=== PATIENT | female | born 1950 | race Caucasian/White ===

== ENCOUNTER 2017-12-28 11:56 | Day surgery (SDC) | payer MEDICARE, MEDICAID, SELFPAY ==
[2017-12-23 16:55] VITALS: BMI 27.8
[2017-12-28] VITALS (7 sets, daily range): BP systolic 116–150; BP diastolic 54–67; PULSE 62–81; RESP 18–20; TEMP 36.8; O2SAT 96–98
--- NOTE | 2017-12-28 13:10 | P.PN_ITS ---
[facility] Anesthesia Checklist - Patient Identification Patient Identification: Arm Band, Verbal (Name & ) - Structural Data Admitted From: Home Planned Operative Procedure/s: egd Consent for Planned Operative Procedure(s) Verified: Yes Verified Documents: Surgical Consent - NPO Status Verified Time NPO: 00:00 - Chart Verification Results Verified: CBC, BMP - Additional verifications Patient : No Anesthesia Reactions: No Hx Blood Transfusions: No Blood Transfusion Reaction: No Cephalosporin Allergy: No Previous Colonoscopy: No - Cardiovascular Assessment Heart Sounds: S1 & S2 Pulse Strength: Baseline Pulse Rhythm: Regular Peripheral Edema: No - Airway Assessment C-Spine Mobility Assessed: Yes TMJ Mobility Assessed: Yes Dentition: Dentures-good fit - Neurological Assessment Level of Consciousness: Awake, Alert, Appropriate Hx Seizures: No Numbness or tingling in extremities: No - Anesthesia Plan Anesthesia Risk discussed: Yes ASA Class: III Anesthesia Type: MAC [facility] Anesthesia HX I have reviewed the patient's past medical history: Yes Medical History: Reports:: Gastroesophageal Reflux Disease(GERD), Hypertension, Lung Disease (COPD, ASTHMA) Denies:: Diabetes Mellitus Type 1, Diabetes Mellitus Type 2 Other Surgeries: Yes: Colonoscopy, Hysterectomy-Total Amputation: No Fractures: No *Family Hx:: Unable to obtain
--- NOTE | 2017-12-28 13:16 | HMH.PROC ---
[facility] Procedure Note Procedure Note:: Upper Endoscopy Procedure Report: Esophagogastroduodenoscopy with cold biopsies and TTS balloon dilation Endoscopost: Alberto Anaya II, MD Referring Physician: Tony Hay MD Date of Procedure: December 28, 2017 Equipment: Olympus GIF 180 standard upper endoscope Sedation: MAC sedation Indications: Mrs. Chappell is a 67-year-old female who is here for diagnostic upper endoscopy. She was sent by pulmonary because of her dyspnea and associated GERD. She often has choking with globus sensation. She feels like foods get hung up and she does note mucus in the throat, frequent clearance of the throat and some hoarseness. She has some belching and bloating. She has ongoing reflux. She has occasional nausea. She reports epigastric abdominal discomfort, bloating and early satiety. She does have irregular bowel function with both constipation and less often diarrhea. The patient did have a colonoscopy in [address] Morgan at [facility]. Procedure: Prior to the procedure, a history and physical exam was performed, and patient's medications and allergies were reviewed. The risks, benefits and alternatives of the sedation and procedure were discussed with the patient. All questions were answered and informed consent was obtained. The patient was brought to the procedure room. Patient identification and proposed procedure were verified by the physician and the nurse. The patient was placed in a left lateral decubitus position and the scope was passed under direct vision. Throughout the procedure, the patient's blood pressure, pulse, and oxygen saturations were monitored continuously. The upper GI endoscopy was accomplished without difficulty. The patient tolerated the procedure well. Findings: The scope was passed directly into the upper esophagus and advanced to the third portion of the duodenum. The post bulbar duodenum and duodenal bulb were normal with normal mucosa and conniventes. The scope was withdrawn through a normal duodenal bulb and pylorus into the stomach. There was moderate reactive gastritis of the antrum and body with some bile reflux. Upon retroflexion there was a small 1-2 cm hiatal hernia. There was some bile reflux. The scope was then withdrawn into the esophagus. There was a distal she is ringing. There was no evidence of reflux esophagitis. There were tertiary contractions all esophageal dysmotility. The entire esophagus was dilated to 60 [place]/20 mm with a TTS hydrostatic balloon. There was shattering of the Schatzki's ring. There is also some resistance at the cricopharyngeus/upper esophageal sphincter which was dilated fully to 20 mm. The remainder of the esophageal mucosa was normal. Impression: 1. 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 Schatzki's ring dilated to 20 mm 3. Nonerosive GERD with mild esophageal dysmotility and very small sliding hiatal hernia (1-2 cm) 4. Moderate reactive gastritis with bile reflux Plan: I would recommend dietary measures, fiber bowel regimen and promotility therapy. I will follow up the biopsies. I would consider colonoscopy for further evaluation. The patient's choking and airway issues are likely secondary to functional GERD.
== END 2017-12-28 14:40 | disposition home or self-care (01) ==
LOC: OUTP 11:59
PROVIDERS: Family Provider Family Medicine; PCP Family Medicine; Referring Provider Internal Medicine; Visit Provider Internal Medicine Gastroenterology
PROC: 0DJ08ZZ Inspection of Upper Intestinal Tract, Via Natural or Artificial Opening Endoscopic (ICD-10-PCS; CPT 43235; principal; 2017-12-28 13:00)
DX: R13.10 Dysphagia, unspecified (principal); K22.2 Esophageal obstruction; K44.9 Diaphragmatic hernia without obstruction or gangrene; K21.9 Gastro-esophageal reflux disease without esophagitis; K22.4 Dyskinesia of esophagus
CPT/HCPCS: 43249; 88305; 88342; C1726

== ENCOUNTER → 2018-01-12 11:53 | Outpatient (POV) | payer MEDICARE, MEDICAID, SELFPAY ==
[2018-01-15 06:26] LABS: Alpha-1-Antitrypsin 132 mg/dL (90-200)
[2018-01-19 06:27] LABS: Phenotype (PI) MS (.)
== END ==
PROVIDERS: Nurse Practitioner Family; Family Provider Family Medicine; PCP Family Medicine; Visit Provider Internal Medicine
DX: J43.9 Emphysema, unspecified (principal)
CPT/HCPCS: 36415; 82104

== ENCOUNTER → 2018-02-22 10:06 | Outpatient (CLI) | payer MEDICARE, MEDICAID, SELFPAY ==
--- NOTE | 2018-02-22 10:19 | MM_ITS ---
MM Dig screening mamm BI w/CAD CAD Screening COMPARISON: Digital mammograms 08/22/2016 and 06/14/2015 INDICATION: There is a history of breast cancer in patient's mother diagnosed at age 65. TECHNIQUE: Standard CC and MLO images were obtained. R2 CAD reviewed. FINDINGS: Scattered fibroglandular densities are seen in both breasts as noted previously. There are several scattered benign-appearing calcination is in each breast. The nipples are inverted but they have been previously. There is no suspicious lesion and no suspicious microcalcifications. IMPRESSION: Stable exam no suspicious lesion seen BI-RADS Category: 2 Benign Finding(s) RECOMMENDED FOLLOW-UP: 1YR - 1 YEAR FOLLOW-UP (A letter has been sent to the patient regarding results of the study.)
[2018-02-22 10:41] LABS: Basophils % 0.4 % (0.1-2.0); Eosinophils # 0.1 K/mm3 (0.0-0.4); Hematocrit 44.9 % (37.0-47.0); Hemoglobin 14.1 g/dL (12.2-16.2); Lymphocytes # 1.5 K/mm3 (0.7-4.5); Lymphocytes % 24.8 K/mm3 (10-50); Mean Corpuscular HGB Conc 31.4 g/dL (31.8-35.4); Mean Corpuscular Hemoglobin 29.8 pg (27.0-31.2); Mean Corpuscular Volume 94.8 fl (81-99); Mean Platelet Volume 7.3 fl (7.4-10.4); Monocytes # 0.4 K/mm3 (0.1-1.0); Monocytes % 7.1 % (1.7-9.3); Neutrophils % 65.6 % (37.0-80.0); Platelet Count 290 K/mm3 (142-424); Red Blood Count 4.73 M/mm3 (4.20-5.40); White Blood Count 6.1 K/mm3 (4.8-10.8)
[2018-02-22 10:58] LABS: Alanine Aminotransferase 33 U/L (12-78); Albumin/Globulin Ratio 1.1 (1.1-1.8); Alkaline Phosphatase 61 U/L (46-116); Anion Gap 11.2 mEq/L (5-15); Aspartate Amino Transferase 25 U/L (15-37); Bilirubin,Total 0.3 mg/dL (0.2-1.0); Blood Urea Nitrogen 13 mg/dL (7-18); Calcium 9.4 mg/dL (8.5-10.1); Carbon Dioxide 30 mmol/L (21.0-32.0); Chloride 105 mmol/L (98-107); Chol/HDL Ratio 2.5 (1-3.5); Cholesterol 219 mg/dL (140-200); Creatinine,Serum 0.77 mg/dL (0.55-1.02); Estimated Glomerular Filt Rate 75 ml/min (>60); GFR (African American) 90 ML/MIN (>60); Globulin 3.6 gm/dl (1.3-3.2); Glucose 87 mg/dL (74-106); HDL Cholesterol 88 mg/dL (29-89); LDL Cholesterol 115 mg/dL (0-130); Potassium 4.2 mmoL/L (3.5-5.1); Sodium 142 mmol/L (136-145); Thyroid Stimulating Hormone 2.54 uIU/ml (0.358-3.740); Total Protein,Serum 7.6 gm/dL (6.4-8.2); Triglycerides 81 mg/dL (30-200); VLDL Cholesterol 16 mg/dL (0-40)
== END ==
PROVIDERS: Family Provider Family Medicine; PCP Family Medicine; Visit Provider Family Medicine
DX: Z12.31 Encounter for screening mammogram for malignant neoplasm of breast (principal); I10 Essential (primary) hypertension; E78.5 Hyperlipidemia, unspecified; N95.1 Menopausal and female climacteric states; J44.9 Chronic obstructive pulmonary disease, unspecified; M19.90 Unspecified osteoarthritis, unspecified site
CPT/HCPCS: 36415; 77067; 80053; 80061; 84443; 85025

== ENCOUNTER → 2018-05-04 13:29 | Outpatient (POV) | payer MEDICARE, MEDICAID, SELFPAY | PROVIDERS: Family Provider Family Medicine; PCP Family Medicine; Visit Provider Internal Medicine | DX: Z00.00 Encounter for general adult medical examination without abnormal findings (principal) ==

== ENCOUNTER → 2018-06-25 10:50 | Outpatient (CLI) | payer MEDICARE, MEDICAID, SELFPAY ==
--- NOTE | 2018-06-25 10:55 | CT_ITS ---
CT lung screening EXAM: CT LUNG LOW DOSE WO CONTRAST HISTORY: 68 year old female former smoker with greater than 35 pack-year smoking history ITS.REASON: FORMER SMOKER, COPD WITH EMPHYSEMA ORDERING PHYSICIAN: Nicola Hay MD PATIENT AGE: 68 years COMPARISON: 07/06/2017 TECHNIQUE: The exam was performed on a GE Light Speed [address] scanner using 2.90 mGy CTDI. A low dose helical CT CHEST was performed on a multi-detector scanner. All CT scans at the facility use one or more dose reduction, viz: automated exposure control, ma/kV adjustment per patient size (including targeted exams where dose is matched to indication, i.e. head), or iterative reconstruction technique. The LDCT was performed in a facility that meets the criteria for the screening program. Data regarding this exam was submitted to ACR which is an approved registry. The order for this exam indicates that it came as a result of a lung cancer screening counseling shard decision-making visit that included all the elements required of such a visit including smoking cessation. The radiologist interpreting this exam meets the CMS criteria for the LDCT lung cancer screening program. The exam is reported using the Lung-RADS classification scale and reported to the ACR registry. NOTE: This study was performed for the specific purposes of lung cancer screening and is not an alternative to diagnostic chest CT. RADIATION DOSE: CTDI vol(CT dose Index-volume) = 2.90mG DLP (Dose Length Product) = 104.09 mGcm FINDINGS: Centrilobular emphysema. Old granulomatous disease. Bronchial thickening with hyperinflation consistent with obstructive chronic bronchitis. There is a stable 5 mm nodule in the left apex. This nodule is noncalcified a 3 mm nodules present in the right upper lobe posteriorly not readily apparent on the previous exam. No central filling lesions. No new suspicious nodules. No mediastinal or hilar adenopathy. IMPRESSION: 1. Lung RADS Category: 2, benign 2. Other findings: Centrilobular emphysema/COPD, old granulomatous disease RECOMMENDATIONS: 12 month LDCT follow-up
== END ==
PROVIDERS: Family Provider Family Medicine; PCP Family Medicine; Visit Provider Internal Medicine
DX: Z12.2 Encounter for screening for malignant neoplasm of respiratory organs (principal); Z87.891 Personal history of nicotine dependence

== ENCOUNTER → 2018-09-28 12:42 | Outpatient (POV) | payer MEDICARE, MEDICAID, SELFPAY | PROVIDERS: Visit Provider Internal Medicine | DX: Z00.00 Encounter for general adult medical examination without abnormal findings (principal) ==

== ENCOUNTER → 2018-10-07 15:28 | Outpatient (CLI) | payer MEDICARE, MEDICAID, SELFPAY | PROVIDERS: PCP Family Medicine; Visit Provider Nurse Practitioner Family | DX: J44.0 Chronic obstructive pulmonary disease with (acute) lower respiratory infection (principal) | CPT/HCPCS: 93005 ==

== ENCOUNTER → 2018-10-15 07:24 | Outpatient (CLI) | payer MEDICARE, MEDICAID, SELFPAY ==
--- NOTE | 2018-10-15 07:30 | NM_ITS ---
CARDIOLITE SPECT MYOCARDIAL PERFUSION SCAN, REST AND STRESS: EXERCISE STRESS [facility] REVIEW QGS EF AND WALL MOTION EVALUATION: QPS - PERFUSION EVALUATION HISTORY: Chest pain, SOB, HTN DOSE: 10.81 mCi technetium 99m mibi intravenously at rest followed by 32.9 mCi technetium 99m mibi following the intravenous ministration of 0.4 mg of Lexiscan. Resting blood pressure is 198/71. Stress blood pressure 175/72. FINDINGS: Ejection fraction is calculated to be 86%. Uniform myocardial activity both stress and rest gated images calculated ejection fraction of 86 % with hyperdynamic wall motion IMPRESSION: No scintigraphic evidence of Lexiscan-induced myocardial ischemia with hyperdynamic ejection fraction hyperdynamic wall motion
== END ==
PROVIDERS: PCP Family Medicine; Visit Provider Family Medicine
DX: R07.9 Chest pain, unspecified (principal)
CPT/HCPCS: 78452; 93017; A9502; J2785

== ENCOUNTER → 2018-10-27 09:47 | Outpatient (CLI) | payer MEDICARE, MEDICAID, SELFPAY ==
[2018-10-27 11:15] VITALS: PULSE 68; PULSE 72
[2018-10-27 12:30] VITALS: BP 140/85; BP 160/92; PULSE 63; PULSE 74; RESP 20; RESP 28; O2SAT 95; O2SAT 98
== END ==
PROVIDERS: PCP Family Medicine; Visit Provider Internal Medicine
DX: J44.9 Chronic obstructive pulmonary disease, unspecified (principal)
CPT/HCPCS: 94060; 94618; 94640; 94727; 94729

== ENCOUNTER → 2019-03-14 10:25 | Outpatient (CLI) | payer MEDICARE, MEDICAID, SELFPAY ==
--- NOTE | 2019-03-14 10:32 | MM_ITS ---
MM Dig screening mamm BI w/CAD ORDERING PHYSICIAN : Louie Land MD PATIENT AGE: 68 years GENDER: Female COMPARISON: INDICATION: ITS.Routine: SCREENING. No hormones. No new complaints. Family history. Mother with breast cancer age 65 TECHNIQUE: Standard CC and MLO images were obtained. R2 CAD reviewed. FINDINGS: Mild to moderate residual fibrolinear elements. Mild/moderate density. RIGHT BREAST no new areas of concern :Right breast appears satisfactory and stable. Scattered benign calcifications but no significant new areas of concern. LEFT BREAST :Slight additional density at the lateral left breast.- Area labeled X. Small fairly well marginated round density here on cc view-this appearance may reflect a small cyst or less likely developing nodule. Recommend ultrasound & spot views to further evaluate. (CC, & MLO spot view along with full 90 degree view left breast) There are some scattered small benign calcifications in this area. Unlikely related.. Scattered small spherical calcification of tiny oil cysts noted. & Other scattered small vague densities appears stable IMPRESSION: 1..... Left breast. Small round 6 mm density has developed at the lateral left breast... Question possible cyst Recommend additional views left breast as described body of report; and ultrasound left breast 2.... Right breast. Stable unremarkable follow-up in one year BI-RADS Category: 0 Need Additional Imaging Evaluation RECOMMENDED FOLLOW-UP: IMM - IMMEDIATE FOLLOW-UP RECOMMENDED Additional diagnostic problem solving views & ultrasound left breast. (A letter has been sent to the patient regarding results of the study.)
--- NOTE | 2019-03-14 10:32 | XR_ITS ---
DEXA SCAN.-BONE DENSITY STUDY HIPS AND LUMBAR SPINE HISTORY: Postmenopausal female 68-year-old. female no calcium intake. Ovaries removed. No relevant medications listed TECHNIQUE: DEXA scan hip and lumbar spine The most complete data summary and color graphic presentation of the today's ( and any prior ) DEXA findings are available in PACS. Definition and treatment guidelines included. COMPARISON: September 2015 DEXA LUMBAR SPINE: Overall mean lumbar L1-L4 T score -1.1 with BMD1.048 g/cm sq . = Overall Osteopenia lumbar spine L1 vertebral body demonstrates the lowest T score -2.3 with BMD0.856 g/cm sq 2015 prior DEXA the mean T score -0.8 with BMD was1.089g/cm sq Thus when comparing today's study to the prior exam there's been a 3.8% % decreased mean bone density at the lumbar spine. Which is slightly more than anticipated bone loss over this length of time.. HIPS: Femoral neck density is best predictor of hip fracture risk . Right femoral neck demonstrates the lowest T score -1.4 with BMD0.843 g/cm sq . Left femoral neck T score -1.3 with BMD 0.86 Averaging all region included yields today's Hip Mean T score -1.3 with BMD0.843 g/cm sq . 2015 prior DEXA overall mean hip T score -0.5 with mean BMD0.939 g/cm sq Thus this reflects 10.2 % % decrease in overall mean bone density at the hips in the interval. IMPRESSION 1. LUMBAR SPINE:. Overall lumbar T score -1.1, reflects overall osteopenia at the lumbar spine. Lowest bone density at L1 vertebra with T score -2.3 reflecting more pronounced osteopenia 3.8% decreased bone density since 2015 lumbar spine . 2. HIPS: Overall hip T score = - 1.3 reflecting overall osteopenia hips There is been a 10.2% decreased overall bone density at hips since 2015 Osteopenia at femoral necks: Right femoral neck T score -1.4. & Left femoral neck T score -1.3 WHO criteria for post-menopausal, Women: Normal: T-score at or above -1 SD Osteopenia: T-score between -1 and -2.5 SD Osteoporosis: T-score at or below -2.5 SD
== END ==
PROVIDERS: PCP Family Medicine; Visit Provider Family Medicine
DX: Z78.0 Asymptomatic menopausal state (principal); Z12.31 Encounter for screening mammogram for malignant neoplasm of breast
CPT/HCPCS: 77067; 77080

== ENCOUNTER → 2019-03-15 14:57 | Outpatient (POV) | payer MEDICARE, MEDICAID, SELFPAY ==
[2019-03-15 16:44] LABS: Basophils % 0.2 % (0.1-2.0); Eosinophils # 0.2 K/mm3 (0.0-0.4); Hematocrit 40.1 % (37.0-47.0); Hemoglobin 13.3 g/dL (12.2-16.2); Lymphocytes # 1.9 K/mm3 (0.7-4.5); Lymphocytes % 24.9 % (10-50); Mean Corpuscular HGB Conc 33.2 g/dL (31.8-35.4); Mean Corpuscular Hemoglobin 29.6 pg (27.0-31.2); Mean Corpuscular Volume 89.4 fl (81-99); Mean Platelet Volume 6.4 fl (7.4-10.4); Monocytes # 0.4 K/mm3 (0.1-1.0); Monocytes % 5.3 % (1.7-9.3); Neutrophils # 5.1 K/mm3 (1.8-7.8); Neutrophils % 66.7 % (37.0-80.0); Platelet Count 285 K/mm3 (142-424); Red Blood Count 4.48 M/mm3 (4.20-5.40); Red Cell Distribution Width 14.5 % (11.5-17.5); White Blood Count 7.7 K/mm3 (4.8-10.8)
[2019-03-23 17:37] LABS: Immunoglobulin E, Total 87 IU/mL (6-495)
[2019-03-24 07:23] LABS: M003-IgE Aspergillus fumigatus <0.10 kU/L (Class 0)
== END ==
PROVIDERS: Visit Provider Internal Medicine
DX: J44.1 Chronic obstructive pulmonary disease with (acute) exacerbation (principal); J30.9 Allergic rhinitis, unspecified
CPT/HCPCS: 36415; 82785; 85025; 86003

== ENCOUNTER → 2019-04-11 13:41 | Outpatient (CLI) | payer MEDICARE, MEDICAID, SELFPAY ==
--- NOTE | 2019-04-11 13:50 | MM_ITS ---
MM Dig mamm DX unilat LT CAD, US breast LT complete INDICATION: Follow-up abnormal mammogram ORDERING PHYSICIAN: Uzma Sood APRN PATIENT AGE: 68 years COMPARISON: None TECHNIQUE: Problem-solving views performed of the left breast along with left breast ultrasound FINDINGS: There is is irregular 16 x 8 mm nodular density in the lateral aspect of the left breast at the 3:00 region. This area does not completely compress out. Along the anterior aspect of this abnormality there is a 6 mm rounded opacity. There are coarse calcifications in this region as well. Left breast ultrasound: There is a 6 mm cyst at 12:00. At 4:00 there is a complex hypoechoic nodule measuring 14 x 5 mm with a rounded component anteriorly corresponding to the mammographic abnormality. This has a somewhat suspicious appearance and biopsy is recommended. IMPRESSION: Suspicious appearing complex nodule at the 3:00 region of the left breast. Ultrasound-guided mammotome biopsy suggested BI-RADS Category: 4 Suspicious Abnormality-Biopsy Considered RECOMMENDED FOLLOW-UP: BIO - BIOPSY RECOMMENDED (A letter has been sent to the patient regarding results of the study.)
== END ==
PROVIDERS: PCP Family Medicine; Visit Provider Nurse Practitioner Family
DX: R92.8 Other abnormal and inconclusive findings on diagnostic imaging of breast (principal); Z12.31 Encounter for screening mammogram for malignant neoplasm of breast
CPT/HCPCS: 76641; 77065

== ENCOUNTER → 2019-05-11 09:27 | Outpatient (CLI) | payer MEDICARE, MEDICAID, SELFPAY ==
--- NOTE | 2019-05-11 09:36 | US_ITS ---
US mammotome bx LT, MM clip placement LT INDICATION: Abnormal mammogram and abnormal ultrasound. ORDERING PHYSICIAN: Uzma Sood APRN PATIENT AGE: 68 years COMPARISON: 04/11/2019, 03/14/2019 TECHNIQUE: Following obtaining informed consent and timeout procedure, under aseptic conditions and local anesthesia with 1% buffered lidocaine and deeper anesthesia with lidocaine mixed with epinephrine, an 9 gauge mammotomy needle was inserted into the area of interest where there was a complex cystic lesion in the 3:00 region of the left breast. Multiple mammotomy biopsy is were obtained and a nonferromagnetic clip was then placed. The patient tolerated the procedure well without evidence of immediate complication. Postbiopsy mammogram: Biopsy clip and postbiopsy changes are present in the 3:00 region of the left breast . Pathology: Invasive moderately differentiated ductal carcinoma IMPRESSION: Successful ultrasound-guided mammotome biopsy with clip placement showing invasive moderately differentiated ductal carcinoma. No immediate complications Recommendations: Surgical consult (A letter has been sent to the patient regarding results of the study.)
== END ==
PROVIDERS: PCP Family Medicine; Visit Provider Nurse Practitioner Family
DX: R92.8 Other abnormal and inconclusive findings on diagnostic imaging of breast (principal); N63.22 Unspecified lump in the left breast, upper inner quadrant
CPT/HCPCS: 19083; 76642; 76942; 77065; 88305; 88360; C2618

== ENCOUNTER 2019-08-07 12:30 | Inpatient (IN) ==
--- NOTE | 2019-08-07 12:51 | Emergency Department Note ---
ED Disposition Clinical Impression: Sepsis Qualifiers: Sepsis type: sepsis due to unspecified organism Sepsis acute organ dysfunction status: unspecified Qualified Code(s): A41.9 - Sepsis, unspecified organism Pneumonia Qualifiers: Pneumonia type: due to unspecified organism Laterality: left Lung location: unspecified part of lung Qualified Code(s): J18.9 - Pneumonia, unspecified organism Disposition: Admitted As Inpatient Condition on Discharge: Good Referrals: Louie Land MD [Primary Care Provider] - - Critical Care Critical Care Time: No Attestation: On , the high probability of a clinically significant, sudden or life threatening deterioration of the following system(s) required my full and direct attention, intervention and personal management. The time I documented below is in addition to time spent performing reported procedures but includes the following listed in this critical care notation. Medical Decision Making - Medical Records Medical records reviewed: Yes: I reviewed the patient's medical records. - Cy Inquiry Pt receiving controlled substance: Yes Cy was queried for this patient: No Reason not queried -: Cy login issues Risks and benefits of using a controlled substance: were discussed with pt by me Vital Signs: 08/07/19 12:31 08/07/19 12:40 08/07/19 13:00 Temperature 98.7 F Temperature Source Oral Pulse Rate 96 H Pulse Rate [Left Radial] 95 H 115 H Respiratory Rate 18 24 Blood Pressure [Right Arm] 124/72 126/73 Blood Pressure Mean [Right Arm] 89 90 Blood Pressure Source [Right Arm] Automatic Cuff Blood Pressure Position [Right Arm] Supine Sitting 02 Sat by Pulse Oximetry 98 98 Oxygen Delivery Method Room Air 08/07/19 13:31 08/07/19 14:37 08/07/19 15:05 Temperature 102.2 F H Temperature Source Oral Pulse Rate Pulse Rate [Left Radial] 95 H 104 H Respiratory Rate 18 Blood Pressure [Right Arm] 126/73 140/60 Blood Pressure Mean [Right Arm] 90 86 Blood Pressure Source [Right Arm] Automatic Cuff Blood Pressure Position [Right Arm] Supine 02 Sat by Pulse Oximetry 98 96 Oxygen Delivery Method Room Air 08/07/19 16:16 Temperature 102.5 F H Temperature Source Oral Pulse Rate Pulse Rate [Left Radial] 102 H Respiratory Rate Blood Pressure [Right Arm] 117/82 Blood Pressure Mean [Right Arm] 93 Blood Pressure Source [Right Arm] Blood Pressure Position [Right Arm] 02 Sat by Pulse Oximetry 97 Oxygen Delivery Method - Lab Data Lab results reviewed: Yes: I reviewed the patient's lab results. Lab Results 08/07/19 13:05: Urine Color Yellow, Urine Appearance Clear, Urine pH 6.0, Ur Specific [place] <= 1.005, Urine Protein Negative, Urine Glucose (UA) Negative, Urine Ketones Negative, Urine Blood Negative, Urine Nitrate Negative, Urine Bilirubin Negative, Urine Urobilinogen 0.2, Ur Leukocyte Esterase Trace, Urine WBC 3-5, Ur Squamous Epith Cells 3-5, Urine Bacteria Trace 08/07/19 13:25: Influenza Type A Ag Negative, Influenza Type B Ag Negative 08/07/19 13:45: WBC 3.1 L, RBC 4.13 L, Hgb 12.1 L, Hct 38.1, MCV 92.3, MCH 29.2, MCHC 31.7 L, RDW 14.5, Plt Count 262, MPV 7.1 L, Neut % (Auto) 72.2, Lymph % (Auto) 21.5, [place] % (Auto) 4.6, Eos % (Auto) 1.4, Baso % (Auto) 0.4, Neut # (A uto) 2.3, Lymph # (Auto) 0.7, [place] # (Auto) 0.1, Eos # (Auto) 0.0, Baso # (Auto) 0.0 08/07/19 13:45: Sodium 136, Potassium 4.0, Chloride 100, Carbon Dioxide 26, Anion Gap 14.0, BUN 8, Creatinine 0.99, Estimated Creat Clear 46, Estimated GFR 55 L, Est GFR ( Amer) 67, Glucose 159 H, Calcium 8.5, Total Bilirubin 0.6, AST 35, ALT 90 H, Alkaline Phosphatase 56, Troponin I < 0.02, Total Protein 6.3 L, Albumin 2.6 L, Globulin 3.7 H, Albumin/Globulin Ratio 0.7 L, Lipase 51 L 08/07/19 13:45: Lactate 5.4 H 08/07/19 13:45: D-Dimer 1550 H* Result diagrams: 08/07/19 13:45 08/07/19 13:45 Orders (Tests/Meds): ED MEDICATIONS Generic Name Dose Route Start Last Admin Trade Name Freq PRN Reason Stop Dose Admin Piperacillin Sod/Tazobactam 50 mls @ 100 mls/hr 08/07/19 15:15 08/07/19 15:14 Sod 3.375 gm/ Sodium Chloride IV 08/21/19 15:14 100 mls/hr Q6H VICKI Administration Protocol Discontinued Medications Generic Name Dose Route Start Last Admin Trade Name Freq PRN Reason Stop Dose Admin Albuterol/Ipratropium 3 ml 08/07/19 12:48 08/07/19 12:59 Duoneb 3ml Neb IH 08/07/19 12:49 3 ml ONCE ONE Administration Sodium Chloride 1,000 mls @ 999 mls/hr 08/07/19 13:00 08/07/19 14:36 Sod Chlor 0.9% 1000ml Bag IV 08/07/19 14:00 999 mls/hr .Q1H1M VICKI Administration Ioversol 70 ml 08/07/19 15:55 08/07/19 15:56 Rad-Optiray 350 100ml Vial IV 08/07/19 15:56 70 ml ONCE ONE Administration Protocol Morphine Sulfate 2 mg 08/07/19 14:26 08/07/19 14:36 Morphine 2mg/Ml Syringe IV 08/07/19 14:27 2 mg ONCE ONE Administration Sodium Chloride 50 ml 08/07/19 15:55 08/07/19 15:56 Rad-Ns 50ml Vial IV 08/07/19 15:56 50 ml ONCE ONE Administration Sodium Chloride 10 ml 08/07/19 15:55 08/07/19 15:56 Rad-Saline Flush 10ml Syringe IV 08/07/19 15:56 10 ml ONCE ONE Administration ORDERS Category Date Time Status CTA Chest [CT angio chest] Stat Cat Scan 08/07/19 14:43 Taken XR chest portable Stat Exams 08/07/19 12:45 Taken Blood Culture Stat Micro 08/07/19 14:45 Received Blood Culture Stat Micro 08/07/19 15:00 Stop Req - CT Data CT Scan: Chest Time Received: 16:43 (left pneumonia) ED CT Reviewed: Yes: I have viewed the radiologist's interpretation - ECG Data Tracing #1 I reviewed this ECG and interpreted as documented below: Normal Sinus Rhythm: Yes (no stemi) Arrhythmias present: sinus tach - Tissue Perfus/Sepsis Re-Eval Reperfusion Exam Performed: Yes Date Performed: 08/07/19 Medical Decision Narrative: admit d/w Dr Land for sepsis and pneumonia tissue perfusion reassessment, +cap refill less than 2 sec, alert and oriented General Adult HPI - General Chief complaint: PAIN Stated complaint: back pain, CA patient Time Seen by Provider: 08/07/19 12:49 Mode of Arrival: Ambulatory Source of Information: Patient Limitations: No Limitations Description of Symptoms (Recalled from ER Triage Doc. by RN): to ed per pvt car with c/o lt side back pain starting +cough, +chills, +sob. pt with hx of breast ca last chemo . jv lung sounds with lt side crackles noted - History of Present Illness HPI narrative: mild to mod off and on pleuritic left back pain, no injury, hx chemo for breast cancer, no fever, +short of breath for a few days - Related Data Home Medications Medication Instructions Recorded Confirmed ALPRAZolam [Alprazolam Odt] 0.5 mg PO BID PRN 12/23/17 08/07/19 Albuterol Sulfate [Albuterol HFA 1 puff INHALATION DAILY 12/23/17 08/07/19 Inhaler] Budesonide/Formoterol Fumarate 1 puff INHALATION DAILY 12/23/17 08/07/19 [Symbicort 160-4.5 Mcg Inhaler] Esomeprazole Magnesium [Nexium] 40 mg PO DAILY 12/23/17 08/07/19 Gabapentin [Gabapentin 300mg Cap] 300 mg PO DAILY 12/23/17 08/07/19 Metoclopramide HCl [Metoclopramide 10 mg PO DAILY 12/23/17 08/07/19 10mg Tablet] Montelukast Sodium [Montelukast 10 mg PO HS 12/23/17 08/07/19 10mg Tab] Sertraline HCl [Zoloft] 100 mg PO DAILY 12/23/17 08/07/19 Tramadol HCl [Ultram Take Home 50 mg PO DAILY 12/23/17 08/07/19 Pack 50mg (10)] Verapamil HCl 120 mg PO DAILY 12/23/17 08/07/19 raNITIdine HCl [Ranitidine HCl] 150 mg PO DAILY 12/23/17 08/07/19 Umeclidinium [place] [Incruse 62.5 mcg IH DAILY 12/28/17 08/07/19 Ellipta] Metoprolol Succinate [Toprol XL 50 mg PO BID 08/07/19 08/07/19 50mg Tablet] Nystatin [Nystatin Susp 500,000 5 ml PO Q6HP 08/07/19 08/07/19 Units/5mL Udc] Allergies Allergy/AdvReac Type Severity Reaction Status Date / Time benzonatate Allergy Mild SWELLING Verified 12/28/17 12:15 pneumococcal vaccine Allergy Mild ITCHING,TISSUE Verified 12/28/17 12:15 NECROSIS PORK Allergy Unknown NA-NAUSEA/V Uncoded 11/10/17 15:21 OMITING [facility] History - Hepatitis A Screen Drug use history?: No High risk sexual behaviors?: No History of sexually transmitted infection?: No Currently employed?: No Childcare worker?: No Do you have indoor plumbing?: Yes Do you have electricity?: Yes Attestation statement:: This patient has been screened for Hepatitis A risk factors. Medical History: Reports:: Gastroesophageal Reflux Disease(GERD), Hypertension, Lung Disease (o2 at night) Denies:: Diabetes Mellitus Type 1, Diabetes Mellitus Type 2, Internal Pacemaker, Seizures Other Medical History: Denies: Blood Transfusion Reaction Other Surgeries: Yes: Colonoscopy, Hysterectomy-Total. No: Pacemaker Amputation: No Fractures: No - Social History Alcohol Intake: never Occupational Status: other Family Hx:: Unable to obtain ROS Obtained: Yes Systems reviewed as appropriate & no additional complaints - Constitutional Constitutional: Denies fever(s) - Eyes Eyes: Denies change in vision - ENT Ears, Nose, Mouth, and Throat: Denies dizziness - Cardiovascular Cardiovascular: Denies chest pain - Respiratory Respiratory: Yes dyspnea - Gastrointestinal Gastrointestingal: Denies: vomiting - Musculoskeletal Musculoskeletal: Reports back pain, Denies neck pain - Integumentary/Breasts Skin/Breast: Denies rash - Neurologic Neurologic: Denies dizziness Physical Exam - General General appearance: alert - Head Head exam: normocephalic - Eye Eye exam: Present: normal appearance - ENT ENT exam: Present: mucous membranes moist - Neck Neck exam: Present: normal inspection - Respiratory Respiratory exam: Present: normal lung sounds bilaterally. Absent: respiratory distress - Cardiovascular Cardiovascular exam: Present: normal rhythm, tachycardia - Abdominal Exam Abdominal exam: Present: soft. Absent: tenderness - Extremities Exam Extremities exam: Absent: tenderness - Back Exam Back exam: Absent: vertebral tenderness - Neurological Exam Neurological exam: Present: alert, oriented X3 - Psychiatric Psychiatric exam: Present: normal affect, normal mood - Skin Skin exam: Present: warm, dry
[2019-08-07 13:37] LABS: Microscopic, Urine URINE MICROSCOPIC (MICROSCOPIC)
[2019-08-07 13:38] LABS: Appearance,Urine CLEAR (Clear); Bilirubin,Urine Negative (Negative); Blood, Urine Negative (Negative); Color,Urine YELLOW (Yellow); Glucose,Urine (UA) Negative (Negative); Ketones,Urine Negative (Negative); Leukocyte Esterase,Urine TRACE (Negative); Protein,Urine Negative (Negative); Specific Gravity, Urine <= 1.005 (1.005-1.030); Urobilinogen,Urine 0.2 EU/dl (0.2)
[2019-08-07 13:41] LABS: Bacteria,Urine Trace /lpf
[2019-08-07 14:11] LABS: Alanine Aminotransferase 90 U/L (12-78); Albumin Level 2.6 gm/dL (3.4-5.0); Albumin/Globulin Ratio 0.7 (1.1-1.8); Alkaline Phosphatase 56 U/L (46-116); Aspartate Amino Transferase 35 U/L (15-37); Bilirubin,Total 0.6 mg/dL (0.2-1.0); Blood Urea Nitrogen 8 mg/dL (7-18); Calcium 8.5 mg/dL (8.5-10.1); Carbon Dioxide 26 mmol/L (21.0-32.0); Chloride 100 mmol/L (98-107); Globulin 3.7 gm/dl (1.3-3.2); Glucose 159 mg/dL (74-106); Sodium 136 mmol/L (136-145); Total Protein,Serum 6.3 gm/dL (6.4-8.2)
[2019-08-07 14:18] LABS: Basophils % 0.4 % (0.1-2.0); Eosinophils % 1.4 % (0.1-12.0); Hematocrit 38.1 % (37.0-47.0); Hemoglobin 12.1 g/dL (12.2-16.2); Lymphocytes # 0.7 K/mm3 (0.7-4.5); Lymphocytes % 21.5 % (10-50); Mean Corpuscular HGB Conc 31.7 g/dL (31.8-35.4); Mean Corpuscular Volume 92.3 fl (81-99); Mean Platelet Volume 7.1 fl (7.4-10.4); Monocytes # 0.1 K/mm3 (0.1-1.0); Monocytes % 4.6 % (1.7-9.3); Neutrophils # 2.3 K/mm3 (1.8-7.8); Neutrophils % 72.2 % (37.0-80.0); Platelet Count 262 K/mm3 (142-424); Red Blood Count 4.13 M/mm3 (4.20-5.40); Red Cell Distribution Width 14.5 % (11.5-17.5); White Blood Count 3.1 K/mm3 (4.8-10.8)
--- NOTE | 2019-08-07 21:01 | Electrocardiograph Report ---
APPROVED REPORT Exam: Resting ECG HR:93 bpm ECG Measurements Heart Rate 93 AXES FL 124 P 75 QRSd 82 QRS 67 QT 334 T44 QTc 415 <Conclusion> Normal sinus rhythm Nonspecific ST and T wave abnormality Abnormal ECG Electronically signed by : Yobani Coelho, 08/07/2019 21:00:24
[2019-08-08 05:50] LABS: Basophils % 0.3 % (0.1-2.0); Eosinophils # 0.1 K/mm3 (0.0-0.4); Eosinophils % 3.4 % (0.1-12.0); Hematocrit 32.2 % (37.0-47.0); Hemoglobin 10.4 g/dL (12.2-16.2); Lymphocytes # 0.4 K/mm3 (0.7-4.5); Lymphocytes % 14.1 % (10-50); Mean Corpuscular HGB Conc 32.1 g/dL (31.8-35.4); Monocytes # 0.2 K/mm3 (0.1-1.0); Monocytes % 5.6 % (1.7-9.3); Neutrophils # 2.3 K/mm3 (1.8-7.8); Neutrophils % 76.6 % (37.0-80.0); Platelet Count 281 K/mm3 (142-424); Red Blood Count 3.54 M/mm3 (4.20-5.40); Red Cell Distribution Width 14.8 % (11.5-17.5)
[2019-08-08 06:05] LABS: Anion Gap 11.9 mEq/L (5-15); Blood Urea Nitrogen 4 mg/dL (7-18); Carbon Dioxide 24 mmol/L (21.0-32.0); Chloride 105 mmol/L (98-107); Sodium 138 mmol/L (136-145)
[2019-08-08 06:09] LABS: Glucose 107 mg/dL (74-106)
[2019-08-08 06:10] LABS: Calcium 7.5 mg/dL (8.5-10.1)
--- NOTE | 2019-08-08 07:22 | Pharmacy Consult Notes ---
[facility] Pharmacy VTE Monitoring - Patient Demographics Admission date: 08/07/19 Report Date: 08/08/19 Time: 07:22 Allergies/Adverse Reactions: Patient Allergies benzonatate Allergy (Mild, Verified 12/28/17 12:15) SWELLING pneumococcal vaccine Allergy (Mild, Verified 12/28/17 12:15) ITCHING,TISSUE NECROSIS PORK Allergy (Unknown, Uncoded 11/10/17 15:21) NA-NAUSEA/VOMITING Height: 1.52 m Weight: 58.088 kg Patient Problems: Current Active Problems Sepsis (Acute) Pneumonia (Acute) - VTE Risk Labs: VTE Related Lab Results Hgb 10.4 g/dL (12.2-16.2) L D 08/08/19 05:33 Hct 32.2 % (37.0-47.0) L 08/08/19 05:33 Plt Count 281 K/mm3 (142-424) 08/08/19 05:33 BUN 4 mg/dL (7-18) L D 08/08/19 05:33 Creatinine 0.62 mg/dL (0.55-1.02) D 08/08/19 05:33 Estimated Creat Clear 48 mL/min (50-200) 08/08/19 05:33 Was VTE Risk Assessment Performed: Yes VTE Score: 10 VTE Risk Level: Moderate Risk - Prophylaxis VTE Prophylaxis Ordered?: Yes Types of VTE Prophylaxis: TEDS Knee High Location of Applied Device: Bilateral Lower Extremeties - VTE Diagnosis Confirmed Treatment or plan recommended: Continue Current Treatment
--- NOTE | 2019-08-08 08:39 | History & Physical Report ---
*Admission Date: 08/07/19 <Uzma Sood 08/08/19 08:55> *Chief complaint: Left lower chest pain <Uzma Sood 08/08/19 08:55> *History of present illness: Ms. Chappell is a 69-year-old female with a history of arthritis, COPD, asthma, fibromyalgia, panic attacks and anxiety, hypertension, and recent diagnosis of left breast cancer with lumpectomy and chemotherapy who presented to [facility] emergency room after experiencing 3 days of left lower, posterior chest discomfort. She states the pain progressively worsened until she could not stand it any longer and thus presented to the emergency room. She describes being unable to sleep in her bed and was having to sit in the recliner in order to rest. She also describes chilling and an infrequent mostly nonproductive cough. She had her third chemotherapy on 08/03/2019. She has also been experiencing nausea, vomiting, and diarrhea. She does have a history of COPD and wears oxygen at night. In the emergency room patient received an IV fluid bolus, morphine for the pain, DuoNeb treatment and was started on IV antibiotics. CTA of the chest was negative for pulmonary embolism. She was admitted for further evaluation and treatment. At the time of this exam patient has been to the bathroom and is somewhat short of breath. She states the pain in her back is little bit better. She had minimal sleep during the night. <SoodNayanaUzma 08/09/19 08:42> [facility] History Medical History: Reports:: Anxiety, Asthma, Cancer, Chronic Obstructive Pulmonary Disease (COPD), Gastroesophageal Reflux Disease(GERD), Hiatal Hernia, Home Oxygen, Hypertension, Lung Disease (o2 at night) Denies:: Diabetes Mellitus Type 1, Diabetes Mellitus Type 2, Internal Pacemaker, MRSA, Seizures <BarrieUzma - 08/08/19 08:55> *Have you ever received a pneumonia vaccine?: Yes <Uzma Sood 08/08/19 08:55> *Have you received a flu vaccine this season?: No <Uzma Sood 08/08/19 08:55> Other Medical History: Reports: Anemia, Arthritis, Chemotherapy, Fibromyalgia. Denies: Blood Transfusion Reaction <Uzma Sood 08/08/19 08:55> Comment:: Allergies <Uzma Sood 19 08:55> Laterality Cases: Left: Breast Biopsy, Lumpectomy, Bilateral: Cataract <BarrieUzma 08/08/19 08:55> Other Surgeries: Yes: Colonoscopy, , Hysterectomy-Total, Other (Bladder surgery). No: Pacemaker <Uzma Sood 08/08/19 08:55> Amputation: No <Uzma Sood 08/08/19 08:55> Fractures: No <Uzma Sood 08/08/19 08:55> Comment: Cervical disc surgery 1986 <BarrieUzma 08/08/19 08:55> - *Social History Educational Level: Attended High School <Uzma Sood 08/08/19 08:55> Smoking Status: Former smoker <Uzma Sood 08/08/19 08:55> Tobacco Type: cigarettes <BarrieUzma 08/08/19 08:55> # Packs/Day (cigarettes): 1 <Uzma Sood 08/08/19 08:55> #Yrs smoked (if former smoker): 36 <BarrieUzma 08/08/19 08:55> Smoking End Date: 2004 <BarrieUzma 08/08/19 08:55> Alcohol Intake: never <BarrieUzma 08/08/19 08:55> *Occupational Status:: retired, other <BarrieUzma 08/08/19 08:55> Housing: house <BarrieUzma 08/08/19 09:29> Household Members: spouse <Uzma Sood 08/08/19 09:29> *Travel in the last 8 weeks: None <Uzma Sood 08/08/19 08:55> Family Hx:: Cancer, Coronary Artery Disease, Hypertension, Stroke <Uzma Buitrago nd 08/08/19 08:55> Review of Systems - Constitutional Reports chills, Reports fever(s), Reports weakness <Uzma Sood 08/08/19 08:55> - ENT Reports dizziness, Reports mouth lesions, Reports mouth pain, Reports nasal discharge, Denies ear pain, Denies headache(s), Denies nasal congestion, Denies sore throat <Uzma Sood - 08/08/19 08:55> - *Cardiovascular Reports chest pain (With breathing), Reports shortness of breath, Reports lightheadedness, Denies leg swelling <[facility] 08/08/19 08:55> - *Respiratory Reports cough (And frequent), Reports pain with cough, Denies coughing up blood <[facility] 08/08/19 08:55> - *Gastrointestinal Reports change in bowel habits, Reports loose stools, Reports heartburn, Reports nausea, Reports vomiting, Denies abdominal pain, Denies coffee ground vomit, Denies bright, red blood in stools, Denies black, tarry stools <[facility] 08/08/19 08:55> - *Genitourinary Denies difficulty urinating <[facility] 08/08/19 08:55> - *Musculoskeletal Reports joint pain, Reports back pain, Denies abnormal walking <[facility] 08/08/19 08:55> - *Neurologic Reports dizziness, Denies seizure-like activity, Denies unsteadiness, Denies frequent falls, Denies headache(s) <[facility] 08/08/19 08:55> Meds Home Medications Medication Instructions Recorded Confirmed Type ALPRAZolam [Alprazolam Odt] 0.5 mg PO BIDP PRN 12/23/17 08/08/19 History Albuterol Sulfate [Albuterol HFA 2 puff INHALATION QIDP PRN 12/23/17 08/08/19 History Inhaler] Budesonide/Formoterol Fumarate 2 puff INHALATION BID 12/23/17 08/07/19 History [Symbicort 160-4.5 Mcg Inhaler] Esomeprazole Magnesium [Nexium] 40 mg PO DAILY 12/23/17 08/07/19 History Gabapentin [Gabapentin 300mg Cap] 600 mg PO BID 12/23/17 08/08/19 History Metoclopramide HCl [Metoclopramide 10 mg PO QID 12/23/17 08/08/19 History 10mg Tablet] Montelukast Sodium [Montelukast 10 mg PO HS 12/23/17 08/07/19 History 10mg Tab] Sertraline HCl [Zoloft] 100 mg PO DAILY 12/23/17 08/07/19 History Verapamil HCl 120 mg PO BID 12/23/17 08/07/19 History raNITIdine HCl [Ranitidine HCl] 150 mg PO DAILY 12/23/17 08/07/19 History Umeclidinium Gays [Incruse 1 puff IH DAILY 12/28/17 08/08/19 History Ellipta] Cetirizine HCl [Allergy Relief] 10 mg PO HS 08/07/19 08/07/19 History Lidocaine HCl [Lidocaine viscous 5 - 10 ml PO Q6 PRN 08/07/19 08/07/19 History 100mL bottle] Mag Hydrox/Aluminum Hyd/Simeth 5 - 10 ml PO Q6 PRN 08/07/19 08/07/19 History [Gnp Antacid Anti-Gas Liquid] Metoprolol Succinate [Toprol XL 50 mg PO BID 08/07/19 08/07/19 History 50mg Tablet] Nystatin [Nystatin Susp 500,000 5 ml PO QID 08/07/19 08/08/19 History Units/5mL Udc] PACLitaxel [Taxol 100mg/16.7mL 1 unit IV WEEKLY 08/07/19 08/07/19 History vial] Trastuzumab [Herceptin] 150 mg IV WEEKLY 08/07/19 08/07/19 History diphenhydrAMINE HCl [M-Dryl] 5 - 10 ml PO Q6 PRN 08/07/19 08/07/19 History Magic Mouthwash [Magic 5 - 10 ml PO QID 08/08/19 08/08/19 History Mouthwash;240mL [place]] Tramadol HCl [Tramadol 50mg 50 mg PO BIDP PRN 08/08/19 08/08/19 History Tab] <Louie Land - 08/09/19 08:52> Allergies Allergy/AdvReac Type Severity Reaction Status Date / Time benzonatate Allergy Mild SWELLING Verified 12/28/17 12:15 pneumococcal vaccine Allergy Mild ITCHING,TISSUE Verified 12/28/17 12:15 NECROSIS PORK Allergy Unknown NA-NAUSEA/V Uncoded 11/10/17 15:21 OMITING <Louie Land - 08/09/19 08:52> Exam Vital signs and Labs for Last 24 Hours: Temp Pulse Resp BP Pulse Ox 98.5 F 90 16 143/84 H 98 08/09/19 04:00 08/09/19 05:46 08/09/19 04:00 08/09/19 04:00 08/09/19 05:46 Laboratory Results - last 24 hr 08/08/19 08:04: Stl Aeromonas (PCR) Not detected, Stl C. cayetanensis PCR Not detected, Stool Rotavirus (PCR) Not detected, Stl Adenov F 40/41 PCR Not detected, Stool Astrovirus (PCR) Not detected, Stool Campylobacter PCR Not detected, Stl C.difficile Tox PCR Not detected, Stool Cryptosporidium PCR Not detected, Stl E.coli Shiga Tox PCR Not detected, Stool E coli O157 PCR Not detec rowdy, Stl Enterotoxigenic E PCR Not detected, Stool EPEC (PCR) Not detected, Stool EAEC (PCR) Not detected, Stl E. histolytica PCR Not detected, Stool Giardia Lamblia PCR Not detected, Stool Salmonella PCR Not detected, Stool Sapovirus (PCR) Not detected, Stl P. shigelloides PCR Not detected, Stl Shigella/EIEC PCR Not detected, St Y.enterocolitica PCR Not detected, Stool Vibrio (PCR) Not detected, Stl Vibrio cholerae PCR Not detected, Stl Norovirus GI/GII PCR Not detected 08/08/19 08:30: Troponin I < 0.02 08/08/19 08:30: Potassium 3.3 L 08/08/19 11:20: Troponin I < 0.02 08/08/19 14:20: Troponin I < 0.02 08/08/19 17:17: Troponin I < 0.02 08/08/19 20:35: Troponin I < 0.02 08/08/19 23:10: Troponin I < 0.02 08/09/19 06:05: WBC 4.0 L D, RBC 3.36 L, Hgb 9.7 L, Hct 30.8 L, MCV 91.5, MCH 28.7, MCHC 31.4 L, RDW 15.0, Plt Count 318, MPV 6.8 L, Neut % (Auto) 73.5, Lymph % (Auto) 16.2, Angelina % (Auto) 9.2, Eos % (Auto) 1.0, Baso % (Auto) 0.1, Neut # (Auto) 2.9, Lymph # (Auto) 0.7, Angelina # (Auto) 0.4, Eos # (Auto) 0.0, Baso # (Auto) 0.0 08/09/19 06:05: Sodium 140, Potassium 3.3 L, Chloride 106, Carbon Dioxide 23, Anion Gap 14.3, BUN 3 L, Creatinine 0.62, Estimated Creat Clear 49, Estimated GFR 95, Est GFR ( Amer) 115, Glucose 94, Calcium 7.8 L <Louie Land - 08/09/19 08:52> Temp Pulse Resp BP Pulse Ox 98.4 F 98 H 18 142/73 H 95 08/08/19 08:00 08/08/19 08:00 08/08/19 08:00 08/08/19 08:00 08/08/19 08:00 Laboratory Results - last 24 hr 08/07/19 13:05: Urine Color Yellow, Urine Appearance Clear, Urine pH 6.0, Ur Specific [place] <= 1.005, Urine Protein Negative, Urine Glucose (UA) Negative, Urine Ketones Negative, Urine Blood Negative, Urine Nitrate Negative, Urine Bilirubin Negative, Urine Urobilinogen 0.2, Ur Leukocyte Esterase Trace, Urine WBC 3-5, Ur Squamous Epith Cells 3-5, Urine Bacteria Trace 08/07/19 13:25: Influenza Type A Ag Negative, Influenza Type B Ag Negative 08/07/19 13:45: WBC 3.1 L, RBC 4.13 L, Hgb 12.1 L, Hct 38.1, MCV 92.3, MCH 29.2, MCHC 31.7 L, RDW 14.5, Plt Count 262, MPV 7.1 L, Neut % (Auto) 72.2, Lymph % (Auto) 21.5, Angelina % (Auto) 4.6, Eos % (Auto) 1.4, Baso % (Auto) 0.4, Neut # (Auto) 2.3, Lymph # (Auto) 0.7, Angelina # (Auto) 0.1, Eos # (Auto) 0.0, Baso # (Auto) 0.0 08/07/19 13:45: Sodium 136, Potassium 4.0, Chloride 100, Carbon Dioxide 26, Anion Gap 14.0, BUN 8, Creatinine 0.99, Estimated Creat Clear 46, Estimated GFR 55 L, Est GFR ( Amer) 67, Glucose 159 H, Calcium 8.5, Total Bilirubin 0.6, AST 35, ALT 90 H, Alkaline Phosphatase 56, Troponin I < 0.02, Total Protein 6.3 L, Albumin 2.6 L, Globulin 3.7 H, Albumin/Globulin Ratio 0.7 L, Lipase 51 L 08/07/19 13:45: Lactate 5.4 H 08/07/19 13:45: D-Dimer 1550 H* 08/07/19 18:05: Lactate 1.7 08/08/19 05:33: WBC 3.0 L, RBC 3.54 L, Hgb 10.4 L D, Hct 32.2 L, MCV 91.0, MCH 29.2, MCHC 32.1, RDW 14.8, Plt Count 281, MPV 7.0 L, Neut % (Auto) 76.6, Lymph % (Auto) 14.1, Angelina % (Auto) 5.6, Eos % (Auto) 3.4, Baso % (Auto) 0.3, Neut # (Auto) 2.3, Lymph # (Auto) 0.4 L, Angelina # (Auto) 0.2, Eos # (Auto) 0.1, Baso # (Auto) 0.0 08/08/19 05:33: Sodium 138, Potassium 2.9 L* D, Chloride 105, Carbon Dioxide 24, Anion Gap 11.9, BUN 4 L D, Creatinine 0.62 D, Estimated Creat Clear 48, Estimated GFR 95, Est GFR ( Amer) 115 D, Glucose 107 H D, Calcium 7.5 L D, Troponin I < 0.02 <Uzma Sood - 08/08/19 08:55> I & O for Last 24 hours: Intake & Output 08/06/19 08/07/19 08/08/19 08/09/19 11:59 11:59 11:59 11:59 Intake Total 220 / 220 1510 / 1510 Output Total 1300 / 1300 Balance -1080 / -1080 1510 / 1510 Weight 128 lb 1 oz 130 lb <Louie Land - 08/09/19 08:52> Intake & Output 08/05/19 08/06/19 08/07/1908/08/19 11:59 11:59 11:59 11:59 Intake Total 220 / 220 Output Total 1300 / 1300 Balance -1080 / -1080 Weight 128 lb 1 oz <Uzma Sood - 08/08/19 08:55> Microbiology Reports for the Last 24 Hours: Microbiology 08/08/19 07:25 Sputum - Expectorated Sputum Gram Stain - Final <Louie Land - 08/09/19 08:52> Radiology Reports for the Last 24 Hours: 08/07/2019 chest x-ray IMPRESSION: Left basilar pneumonia,.. With small left pleural effusion 08/07/2019 CTA of the chest IMPRESSION: 1.. No evidence of pulmonary embolism. Pulmonary arteries unremarkable 2.Aortic. No dissection. No prominent findings 3. Moderate size pneumonic infiltrate & consolidation posterior LLL 4. Small left pleural effusion associated 5. Progression of lymph nodes/soft tissue density subcarinal region right > left as detailed within body of report. The largest collection of nodes measuring up to 3.5 cm length x2.2 x 1.1 cm right subcarinal region. Suggest follow-up CT chest in 3-4 months 6.. New irregular 6 mm nodule medial aspect right lower may be related to scarring or inflammatory process, but also warrants follow-up CT chest 3-4 months.. Stable 5 mm nodule superior left upper lobe lobe, again noted and can be followed 7. Underlying emphysematous changes.. Hyperinflation 8. Small hiatal hernia with borderline -mild wall thickening throughout this region <Uzma Sood - 08/08/19 08:55> - Constitutional no acute distress <Uzma Sood - 08/08/19 08:55> Comments: Has just returned back to bed after going to the bathroom. Is somewhat dyspneic. <Uzma Sood Emil 08/08/19 08:55> - *Routine HEENT Exam Head: Present: normocephalic, atraumatic <SoodUzma - 08/08/19 08:55> Eye: Present: PERRL. Absent: conjunctival icterus, scleral injection <SoodUzma Emil 08/08/19 08:55> ENT: Present: mucous membranes dry <BarrieUzma - 08/08/19 08:55> - *Routine Neck Exam Absent: carotid bruit, lymphadenopathy, thyromegaly <Uzma Sood 08/08/19 08:55> - Routine Chest/Breast/Axilla Exam Comments: Right upper chest with Port-A-Cath <Uzma Sood 08/08/19 09:16> - *Routine Respiratory Exam Comments: Left basilar crackles <Uzma Sood 08/08/19 08:55> - *Routine Cardiovascular Exam Present: RRR <Uzma Sood 08/08/19 08:55> - *Routine Abdominal Exam Present: soft, normoactive bowel sounds, tenderness (Epigastrium). Absent: guarding <Uzma Sood 08/08/19 08:55> - *Routine Extremities Exam Absent: edema, calf tenderness <Uzma Sood 08/08/19 08:55> - *Routine Neurological Exam Present: alert, oriented X3 <Uzma Sood 08/08/19 08:55> Assessment and Plan (1) Pneumonia Current visit: Yes Status: Acute Qualifiers: Pneumonia type: due to unspecified organism Laterality: left Lung location: unspecified part of lung Qualified Code(s): J18.9 - Pneumonia, unspecified organism Category: Medical Code(s): J18.9 - Pneumonia, unspecified organism (2) Sepsis Current visit: Yes Status: Acute Qualifiers: Sepsis type: sepsis due to unspecified organism Sepsis acute organ dysfunction status: unspecified Qualified Code(s): A41.9 - Sepsis, unspecified organism Category: Medical Code(s): A41.9 - Sepsis, unspecified organism (3) Hypokalemia Current visit: Yes Status: Acute Category: Medical Code(s): E87.6 - H ypokalemia (4) COPD (chronic obstructive pulmonary disease) Current visit: Yes Status: Chronic Category: Medical Code(s): J44.9 - Chronic obstructive pulmonary disease, unspecified (5) Anxiety Current visit: Yes Status: Chronic Category: Medical Code(s): F41.9 - Anxiety disorder, unspecified (6) Anemia Current visit: Yes Status: Acute Category: Medical Code(s): D64.9 - Anemia, unspecified (7) Breast cancer Current visit: Yes Status: Chronic Category: Medical Code(s): C50.919 - Malignant neoplasm of unspecified site of unspecified female breast (8) Chemotherapy adverse reaction Current visit: Yes Status: Acute Category: Medical Code(s): T45.1X5A - Adverse effect of antineoplastic and immunosuppressive drugs, initial encounter (9) GERD (gastroesophageal reflux disease) Current visit: Yes Status: Chronic Category: Medical Code(s): K21.9 - Gastro-esophageal reflux disease without esophagitis <ShandaLouie Andrea - 08/09/19 08:52> (1) Pneumonia Current visit: Yes Status: Acute Qualifiers: Pneumonia type: due to unspecified organism Laterality: left Lung location: unspecified part of lung Qualified Code(s): J18.9 - Pneumonia, unspecified organism Category: Medical Code(s): J18.9 - Pneumonia, unspecified organism (2) Sepsis Current visit: Yes Status: Acute Qualifiers: Sepsis type: sepsis due to unspecified organism Sepsis acute organ dysfunction status: unspecified Qualified Code(s): A41.9 - Sepsis, unspecified organism Category: Medical Code(s): A41.9 - Sepsis, unspecified organism (3) Hypokalemia Current visit: Yes Status: Acute Category: Medical Code(s): E87.6 - Hypokalemia (4) COPD (chronic obstructive pulmonary disease) Current visit: Yes Status: Chronic Category: Medical Code(s): J44.9 - Chronic obstructive pulmonary disease, unspecified (5) Anxiety Current visit: Yes Status: Chronic Category: Medical Code(s): F41.9 - Anxiety disorder, unspecified (6) Anemia Current visit: Yes Status: Acute Category: Medical Code(s): D64.9 - Anemia, unspecified (7) Breast cancer Current visit: Yes Status: Chronic Category: Medical Code(s): C50.919 - Malignant neoplasm of unspecified site of unspecified female breast (8) Chemotherapy adverse reaction Current visit: Yes Status: Acute Category: Medical Code(s): T45.1X5A - Adverse effect of antineoplastic and immunosuppressive drugs, initial encounter (9) GERD (gastroesophageal reflux disease) Current visit: Yes Status: Chronic Category: Medical Code(s): K21.9 - Gastro-esophageal reflux disease without esophagitis <Uzma Sood - 08/09/19 08:41> - Assessment and plan all Dx Assessment and Plan for all problems:: Patient seen and examined. Concur with assessment and plan. <Louie Land - 08/09/19 08:52> Levaquin has been added for antibiotic coverage. Continue with IV fluids. Home meds have been ordered. Will also continue with duo nebs. Patient is also hypokalemic and will add potassium to IV fluids as well as give IV bolus. <Uzma Sood - 08/08/19 09:16>
--- NOTE | 2019-08-08 11:53 | Electrocardiograph Report ---
APPROVED REPORT Exam: Resting ECG HR:94 bpm ECG Measurements Heart Rate 94 AXES [place] 116 P 83 QRSd 78 QRS 59 QT 344 T3 QTc 430 <Conclusion> Normal sinus rhythm Nonspecific ST and T wave abnormality Abnormal ECG Electronically signed by : Yobani Coelho, 08/08/2019 11:52:50
[2019-08-09 06:43] LABS: Anion Gap 14.3 mEq/L (5-15); Calcium 7.8 mg/dL (8.5-10.1)
[2019-08-09 06:50] LABS: Basophils % 0.1 % (0.1-2.0); Hematocrit 30.8 % (37.0-47.0); Hemoglobin 9.7 g/dL (12.2-16.2); Lymphocytes # 0.7 K/mm3 (0.7-4.5); Lymphocytes % 16.2 % (10-50); Mean Corpuscular HGB Conc 31.4 g/dL (31.8-35.4); Mean Corpuscular Volume 91.5 fl (81-99); Mean Platelet Volume 6.8 fl (7.4-10.4); Monocytes # 0.4 K/mm3 (0.1-1.0); Monocytes % 9.2 % (1.7-9.3); Neutrophils # 2.9 K/mm3 (1.8-7.8); Neutrophils % 73.5 % (37.0-80.0); Platelet Count 318 K/mm3 (142-424); Red Blood Count 3.36 M/mm3 (4.20-5.40)
--- NOTE | 2019-08-09 08:41 | Progress Note ---
<Uzma Sood - Last Filed: 08/09/19 08:37> Internal Medicine - PN: Subj *Date: 08/09/19 *Time: 08:37 Interval history: Patient had a respiratory event during the night. She states she awakened and was short of breath and chest was congested. A breathing treatment relieved the symptoms. She denies chest pain. She would like to sit up in a chair today. She eats very little. She denies nausea, vomiting and has not had diarrhea since yesterday. Exam Vital signs and Labs for Last 24 Hours: Temp Pulse Resp BP Pulse Ox 98.5 F 90 16 143/84 H 98 08/09/19 04:00 08/09/19 05:46 08/09/19 04:00 08/09/19 04:00 08/09/19 05:46 Laboratory Results - last 24 hr 08/08/19 08:04: Stl Aeromonas (PCR) Not detected, Stl C. cayetanensis PCR Not detected, Stool Rotavirus (PCR) Not detected, Stl Adenov F 40/41 PCR Not detected, Stool Astrovirus (PCR) Not detected, Stool Campylobacter PCR Not detected, Stl C.difficile Tox PCR Not detected, Stool Cryptosporidium PCR Not detected, Stl E.coli Shiga Tox PCR Not detected, Stool E coli O157 PCR Not detected, Stl Enterotoxigenic E PCR Not detected, Stool EPEC (PCR) Not detected, Stool EAEC (PCR) Not detected, Stl E. histolytica PCR Not detected, Stool Giardia Lamblia PCR Not detected, Stool Salmonella PCR Not detected, Stool Sapovirus (PCR) Not detected, Stl P. shigelloides PCR Not detected, Stl Shigella/EIEC PCR Not detected, St Y.enterocolitica PCR Not detected, Stool Vibrio (PCR) Not detected, Stl Vibrio cholerae PCR Not detected, Stl Norovirus GI/GII PCR Not detected 08/08/19 08:30: Troponin I < 0.02 08/08/19 08:30: Potassium 3.3 L 08/08/19 11:20: Troponin I < 0.02 08/08/19 14:20: Troponin I < 0.02 08/08/19 17:17: Troponin I < 0.02 08/08/19 20:35: Troponin I < 0.02 08/08/19 23:10: Troponin I < 0.02 08/09/19 06:05: WBC 4.0 L D, RBC 3.36 L, Hgb 9.7 L, Hct 30.8 L, MCV 91.5, MCH 28.7, MCHC 31.4 L, RDW 15.0, Plt Count 318, MPV 6.8 L, Neut % (Auto) 73.5, Lymph % (Auto) 16.2, [place] % (Auto) 9.2, Eos % (Auto) 1.0, Baso % (Auto) 0.1, Neut # (Auto) 2.9, Lymph # (Auto) 0.7, [place] # (Auto) 0.4, Eos # (Auto) 0.0, Baso # (Auto) 0.0 08/09/19 06:05: Sodium 140, Potassium 3.3 L, Chloride 106, Carbon Dioxide 23, Anion Gap 14.3, BUN 3 L, Creatinine 0.62, Estimated Creat Clear 49, Estimated GFR 95, Est GFR ( Amer) 115, Glucose 94, Calcium 7.8 L I & O for Last 24 hours: Intake & Output 08/06/19 08/07/19 08/08/19 08/09/19 11:59 11:59 11:59 11:59 Intake Total 220 / 220 1510 / 1510 Output Total 1300 / 1300 Balance -1080 / -1080 1510 / 1510 Weight 128 lb 1 oz 130 lb Microbiology Reports for the Last 24 Hours: Microbiology 08/08/19 07:25 Sputum - Expectorated Sputum Gram Stain - Final - Constitutional no acute distress Comments: Sitting up in the bed and has completed her breakfast of juice and yogurt. - *Routine Respiratory Exam Comments: Crackles on the left posteriorly - *Routine Cardiovascular Exam Present: RRR - *Routine Abdominal Exam Present: soft, normoactive bowel sounds. Absent: tenderness, distended - *Routine Extremities Exam Absent: edema, calf tenderness Assessment and Plan (1) Pneumonia Current visit: Yes Status: Acute Qualifiers: Pneumonia type: due to unspecified organism Laterality: left Lung location: unspecified part of lung Qualified Code(s): J18.9 - Pneumonia, unspecified organism Category: Medical Code(s): J18.9 - Pneumonia, unspecified organism (2) Sepsis Current visit: Yes Status: Acute Qualifiers: Sepsis type: sepsis due to unspecified organism Sepsis acute organ dysfunction status: unspecified Qualified Code(s): A41.9 - Sepsis, unspecified organism Category: Medical Code(s): A41.9 - Sepsis, unspecified organism (3) Hypokalemia Current visit: Yes Status: Acute Category: Medical Code(s): E87.6 - Hypokalemia (4) COPD (chronic obstructive pulmonary disease) Current visit: Yes Status: Chronic Category: Medical Code(s): J44.9 - Chronic obstructive pulmonary disease, unspecified (5) Anxiety Current visit: Yes Status: Chronic Category: Medical Code(s): F41.9 - Anxiety disorder, unspecified (6) Anemia Current visit: Yes Status: Acute Category: Medical Code(s): D64.9 - Anemia, unspecified (7) Breast cancer Current visit: Yes Status: Chronic Category: Medical Code(s): C50.919 - Malignant neoplasm of unspecified site of unspecified female breast (8) Chemotherapy adverse reaction Current visit: Yes Status: Acute Category: Medical Code(s): T45.1X5A - Adverse effect of antineoplastic and immunosuppressive drugs, initial encounter (9) GERD (gastroesophageal reflux disease) Current visit: Yes Status: Chronic Category: Medical Code(s): K21.9 - G sinan-esophageal reflux disease without esophagitis - Assessment and plan all Dx Assessment and Plan for all problems:: Out of bed as tolerated. We will continue current care otherwise. Cultures are pending. <Louie Land - Last Filed: 08/09/19 08:53> Internal Medicine - PN: Subj *Date: 08/09/19 *Time: 08:53 Exam Vital signs and Labs for Last 24 Hours: Temp Pulse Resp BP Pulse Ox 98.5 F 90 16 143/84 H 98 08/09/19 04:00 08/09/19 05:46 08/09/19 04:00 08/09/19 04:00 08/09/19 05:46 Laboratory Results - last 24 hr 08/08/19 08:04: Stl Aeromonas (PCR) Not detected, Stl C. cayetanensis PCR Not detected, Stool Rotavirus (PCR) Not detected, Stl Adenov F 40/41 PCR Not detected, Stool Astrovirus (PCR) Not detected, Stool Campylobacter PCR Not detected, Stl C.difficile Tox PCR Not detected, Stool Cryptosporidium PCR Not detected, Stl E.coli Shiga Tox PCR Not detected, Stool E coli O157 PCR Not detected, Stl Enterotoxigenic E PCR Not detected, Stool EPEC (PCR) Not detected, Stool EAEC (PCR) Not detected, Stl E. histolytica PCR Not detected, Stool Giardia Lamblia PCR Not detected, Stool Salmonella PCR Not detected, Stool Sapovirus (PCR) Not detected, Stl P. shigelloides PCR Not detected, Stl Shigella/EIEC PCR Not detected, St Y.enterocolitica PCR Not detected, Stool Vibrio (PCR) Not detected, Stl Vibrio cholerae PCR Not detected, Stl Norovirus GI/GII PCR Not detected 08/08/19 08:30: Troponin I < 0.02 08/08/19 08:30: Potassium 3.3 L 08/08/19 11:20: Troponin I < 0.02 08/08/19 14:20: Troponin I < 0.02 08/08/19 17:17: Troponin I < 0.02 08/08/19 20:35: Troponin I < 0.02 08/08/19 23:10: Troponin I < 0.02 08/09/19 06:05: WBC 4.0 L D, RBC 3.36 L, Hgb 9.7 L, Hct 30.8 L, MCV 91.5, MCH 28.7, MCHC 31.4 L, RDW 15.0, Plt Count 318, MPV 6.8 L, Neut % (Auto) 73.5, Lymph % (Auto) 16.2, [place] % (Auto) 9.2, Eos % (Auto) 1.0, Baso % (Auto) 0.1, Neut # (Auto) 2.9, Lymph # (Auto) 0.7, [place] # (Auto) 0.4, Eos # (Auto) 0.0, Baso # (Auto) 0.0 08/09/19 06:05: Sodium 140, Potassium 3.3 L, Chloride 106, Carbon Dioxide 23, Anion Gap 14.3, BUN 3 L, Creatinine 0.62, Estimated Creat Clear 49, Estimated GFR 95, Est GFR ( Amer) 115, Glucose 94, Calcium 7.8 L I & O for Last 24 hours: Intake & Output 08/06/19 08/07/19 08/08/19 08/09/19 11:59 11:59 11:59 11:59 Intake Total 220 / 220 1510 / 1510 Output Total 1300 / 1300 Balance -1080 / -1080 1510 / 1510 Weight 128 lb 1 oz 130 lb Microbiology Reports for the Last 24 Hours: Microbiology 08/08/19 07:25 Sputum - Expectorated Sputum Gram Stain - Final Assessment and Plan (1) Pneumonia Current visit: Yes Status: Acute Qualifiers: Pneumonia type: due to unspecified organism Laterality: left Lung location: unspecified part of lung Qualified Code(s): J18.9 - Pneumonia, unspecified organism Category: Medical Code(s): J18.9 - Pneumonia, unspecified organism (2) Sepsis Current visit: Yes Status: Acute Qualifiers: Sepsis type: sepsis due to unspecified organism Sepsis acute organ dysfunction status: unspecified Qualified Code(s): A41.9 - Sepsis, unspecified organism Category: Medical Code(s): A41.9 - Sepsis, unspecified organism (3) Hypokalemia Current visit: Yes Status: Acute Category: Medical Code(s): E87.6 - Hypokalemia (4) COPD (chronic obstructive pulmonary disease) Current visit: Yes Status: Chronic Category: Medical Code(s): J44.9 - Chronic obstructive pulmonary disease, unspecified (5) Anxiety Current visit: Yes Status: Chronic Category: Medical Code(s): F41.9 - Anxiety disorder, unspecified (6) Anemia Current visit: Yes Status: Acute Category: Medical Code(s): D64.9 - Anemia, unspecified (7) Breast cancer Current visit: Yes Status: Chronic Category: Medical Code(s): C50.919 - Malignant neoplasm of unspecified site of unspecified female breast (8) Chemotherapy adverse reaction Current visit: Yes Status: Acute Category: Medical Code(s): T45.1X5A - Adverse effect of antineoplastic and immunosuppressive drugs, initial encounter (9) GERD (gastroesophageal reflux disease) Current visit: Yes Status: Chronic Category: Medical Code(s): K21.9 - Gastro-esophageal reflux disease without esophagitis - Assessment and plan all Dx Assessment and Plan for all problems:: Patient seen and examined. Concur with above assessment and plan.
[2019-08-10 06:22] LABS: Basophils % 0.1 % (0.1-2.0); Eosinophils % 0.1 % (0.1-12.0); Hematocrit 30.2 % (37.0-47.0); Hemoglobin 9.6 g/dL (12.2-16.2); Lymphocytes # 0.4 K/mm3 (0.7-4.5); Lymphocytes % 11.2 % (10-50); Mean Corpuscular Volume 90.9 fl (81-99); Mean Platelet Volume 6.5 fl (7.4-10.4); Monocytes # 0.2 K/mm3 (0.1-1.0); Monocytes % 6.2 % (1.7-9.3); Neutrophils # 2.9 K/mm3 (1.8-7.8); Neutrophils % 82.4 % (37.0-80.0); Platelet Count 356 K/mm3 (142-424); Red Blood Count 3.32 M/mm3 (4.20-5.40); Red Cell Distribution Width 14.9 % (11.5-17.5); White Blood Count 3.6 K/mm3 (4.8-10.8)
[2019-08-10 06:28] LABS: Calcium 8.1 mg/dL (8.5-10.1)
--- NOTE | 2019-08-10 07:55 | Progress Note ---
<Uzma Sood - Last Filed: 08/10/19 07:52> Internal Medicine - PN: Subj *Date: 08/10/19 *Time: 07:52 Interval history: Patient seen in the chair yesterday. She felt it made her very tired. Her food does taste a little better and she is eating more. She denies nausea, vomiting and has had no further diarrhea. Increase in urinary output after Lasix. She continues with periodic cough and shortness of breath. She awakened about 3 AM with shortness of breath requiring a breathing treatment which helped. She denies chest pain. Exam Vital signs and Labs for Last 24 Hours: Temp Pulse Resp BP Pulse Ox 98.0 F 88 32 H 163/87 H 94 L 08/10/19 04:00 08/10/19 05:47 08/10/19 04:00 08/10/19 04:00 08/10/19 05:47 Laboratory Results - last 24 hr 08/10/19 06:08: WBC 3.6 L, RBC 3.32 L, Hgb 9.6 L, Hct 30.2 L, MCV 90.9, MCH 29.1, MCHC 32.0, RDW 14.9, Plt Count 356, MPV 6.5 L, Neut % (Auto) 82.4 H, Lymph % (Auto) 11.2, [place] % (Auto) 6.2, Eos % (Auto) 0.1, Baso % (Auto) 0.1, Neut # (Auto) 2.9, Lymph # (Auto) 0.4 L, [place] # (Auto) 0.2, Eos # (Auto) 0.0, Baso # (Auto) 0.0 08/10/19 06:08: Sodium 139, Potassium 4.0 D, Chloride 105, Carbon Dioxide 26, Anion Gap 12.0, BUN 5 L D, Creatinine 0.54 L, Estimated Creat Clear 50, Estimated GFR 112, Est GFR ( Amer) 135, Glucose 141 H, Calcium 8.1 L I & O for Last 24 hours: Intake & Output 08/07/19 08/08/19 08/09/19 08/10/19 11:59 11:59 11:59 11:59 Intake Total 220 / 220 1780 / 1780 2761 / 2761 Output Total 1300 / 1300 200 / 200 1100 / 1100 Balance -1080 / -1080 1580 / 1580 1661 / 1661 Weight 128 lb 1 oz 130 lb 134 lb 6 oz Microbiology Reports for the Last 24 Hours: Microbiology 08/07/19 14:45 Blood Blood Culture - Preliminary NO GROWTH AFTER 48 HOURS 08/07/19 15:00 Blood Blood Culture - Preliminary NO GROWTH AFTER 48 HOURS 08/07/19 14:45 Blood Blood Culture - Preliminary NO GROWTH AFTER 48 HOURS 08/08/19 07:25 Sputum - Expectorated Sputum Gram Stain - Final 08/08/19 07:25 Sputum - Expectorated Sputum Sputum Culture - Preliminary - Constitutional no acute distress Comments: Sitting up in the bed eating breakfast. Dyspneic with talking - *Routine Respiratory Exam Comments: Crackles throughout posteriorly on the left - *Routine Cardiovascular Exam Present: RRR - *Routine Abdominal Exam Present: soft, normoactive bowel sounds. Absent: tenderness - *Routine Extremities Exam Absent: edema, calf tenderness - *Routine Neurological Exam Present: alert, oriented X3 Assessment and Plan (1) Pneumonia Current visit: Yes Status: Acute Qualifiers: Pneumonia type: due to unspecified organism Laterality: left Lung location: unspecified part of lung Qualified Code(s): J18.9 - Pneumonia, unspecified organism Category: Medical Code(s): J18.9 - Pneumonia, unspecified organism (2) Sepsis Current visit: Yes Status: Acute Qualifiers: Sepsis type: sepsis due to unspecified organism Sepsis acute organ dysfunction status: unspecified Qualified Code(s): A41.9 - Sepsis, unspecified organism Category: Medical Code(s): A41.9 - Sepsis, unspecified organism (3) Hypokalemia Current visit: Yes Status: Acute Category: Medical Code(s): E87.6 - Hypokalemia (4) COPD (chronic obstructive pulmonary disease) Current visit: Yes Status: Chronic Category: Medical Code(s): J44.9 - Chronic obstructive pulmonary disease, unspecified (5) Anxiety Current visit: Yes Status: Chronic Category: Medical Code(s): F41.9 - Anxiety disorder, unspecified (6) Anemia Current visit: Yes Status: Acute Category: Medical Code(s): D64.9 - Anemia, unspecified (7) Breast cancer Current visit: Yes Status: Chronic Category: Medical Code(s): C50.919 - Malignant neoplasm of unspecified site of unspecified female breast (8) Chemotherapy adverse reaction Current visit: Yes Status: Acute Category: Medical Code(s): T45.1X5A - Adverse effect of antineoplastic and immunosuppressive drugs, initial encounter (9) GERD (gastroesophageal reflux disease) Current visit: Yes Status: Chronic Category: Medical Code(s): K21.9 - Gastro-esophageal reflux disease without esophagitis - Assessment and plan all Dx Assessment and Plan for all problems:: Potassium has normalized. Repeat chest x-ray today. We will continue with antibiotics and neb treatments. <Louie Land - Last Filed: 08/10/19 09:19> Internal Medicine - PN: Subj *Date: 08/10/19 *Time: 09:18 Exam Vital signs and Labs for Last 24 Hours: Temp Pulse Resp BP Pulse Ox 98.1 F 97 H 22 181/92 H 95 08/10/19 08:00 08/10/19 08:00 08/10/19 08:00 08/10/19 08:00 08/10/19 08:00 Laboratory Results - last 24 hr 08/10/19 06:08: WBC 3.6 L, RBC 3.32 L, Hgb 9.6 L, Hct 30.2 L, MCV 90.9, MCH 29.1, MCHC 32.0, RDW 14.9, Plt Count 356, MPV 6.5 L, Neut % (Auto) 82.4 H, Lymph % (Auto) 11.2, [place] % (Auto) 6.2, Eos % (Auto) 0.1, Baso % (Auto) 0.1, Neut # (Auto) 2.9, Lymph # (Auto) 0.4 L, [place] # (Auto) 0.2, Eos # (Auto) 0.0, Baso # (Auto) 0.0 08/10/19 06:08: Sodium 139, Potassium 4.0 D, Chloride 105, Carbon Dioxide 26, Anion Gap 12.0, BUN 5 L D, Creatinine 0.54 L, Estimated Creat Clear 50, Estimated GFR 112, Est GFR ( Amer) 135, Glucose 141 H, Calcium 8.1 L I & O for Last 24 hours: Intake & Output 08/07/19 08/08/19 08/09/19 08/10/19 11:59 11:59 11:59 11:59 Intake Total 220 / 220 1780 / 1780 3001 / 3001 Output Total 1300 / 1300 200 / 200 1300 / 1300 Balance -1080 / -1080 1580 / 1580 1701 / 1701 Weight 128 lb 1 oz 130 lb 134 lb 6 oz Microbiology Reports for the Last 24 Hours: Microbiology 08/08/19 07:25 Sputum - Expectorated Sputum Gram Stain - Final 08/08/19 07:25 Sputum - Expectorated Sputum Sputum Culture - Preliminary Gram Negative Rods 08/07/19 14:45 Blood Blood Culture - Preliminary NO GROWTH AFTER 48 HOURS 08/07/19 15:00 Blood Blood Culture - Preliminary NO GROWTH AFTER 48 HOURS 08/07/19 14:45 Blood Blood Culture - Preliminary NO GROWTH AFTER 48 HOURS Assessment and Plan (1) Pneumonia Current visit: Yes Status: Acute Qualifiers: Pneumonia type: due to unspecified organism Laterality: left Lung location: unspecified part of lung Qualified Code(s): J18.9 - Pneumonia, unspecified organism Category: Medical Code(s): J18.9 - Pneumonia, unspecified organism (2) Sepsis Current visit: Yes Status: Acute Qualifiers: Sepsis type: sepsis due to unspecified organism Sepsis acute organ dysfunction status: unspecified Qualified Code(s): A41.9 - Sepsis, unspecified organism Category: Medical Code(s): A41.9 - Sepsis, unspecified organism (3) Hypokalemia Current visit: Yes Status: Acute Category: Medical Code(s): E87.6 - Hypokalemia (4) COPD (chronic obstructive pulmonary disease) Current visit: Yes Status: Chronic Category: Medical Code(s): J44.9 - Chronic obstructive pulmonary disease, unspecified (5) Anxiety Current visit: Yes Status: Chronic Category: Medical Code(s): F41.9 - Anxiety disorder, unspecified (6) Anemia Current visit: Yes Status: Acute Category: Medical Code(s): D64.9 - Anemia, unspecified (7) Breast cancer Current visit: Yes Status: Chronic Category: Medical Code(s): C50.919 - Malignant neoplasm of unspecified site of unspecified female breast (8) Chemotherapy adverse reaction Current visit: Yes Status: Acute Category: Medical Code(s): T45.1X5A - Adverse effect of antineoplastic and immunosuppressive drugs, initial encounter (9) GERD (gastroesophageal reflux disease) Current visit: Yes Status: Chronic Category: Medical Code(s): K21.9 - Gastro-esophageal reflux disease without esophagitis - Assessment and plan all Dx Assessment and Plan for all problems:: Patient seen and examined. Concur with above. Will repeat Lasix and steroids.
--- NOTE | 2019-08-10 10:49 | Progress Note ---
Internal Medicine - PN: Subj *Date: 08/10/19 *Time: 10:48 Exam Vital signs and Labs for Last 24 Hours: Temp Pulse Resp BP Pulse Ox 98.1 F 94 H 22 181/92 H 95 08/10/19 08:00 08/10/19 09:48 08/10/19 08:00 08/10/19 08:00 08/10/19 08:00 Laboratory Results - last 24 hr 08/10/19 06:08: WBC 3.6 L, RBC 3.32 L, Hgb 9.6 L, Hct 30.2 L, MCV 90.9, MCH 29.1, MCHC 32.0, RDW 14.9, Plt Count 356, MPV 6.5 L, Neut % (Auto) 82.4 H, Lymph % (Auto) 11.2, [place] % (Auto) 6.2, Eos % (Auto) 0.1, Baso % (Auto) 0.1, Neut # (Auto) 2.9, Lymph # (Auto) 0.4 L, [place] # (Auto) 0.2, Eos # (Auto) 0.0, Baso # (Auto) 0.0 08/10/19 06:08: Sodium 139, Potassium 4.0 D, Chloride 105, Carbon Dioxide 26, Anion Gap 12.0, BUN 5 L D, Creatinine 0.54 L, Estimated Creat Clear 50, Estimated GFR 112, Est GFR ( Amer) 135, Glucose 141 H, Calcium 8.1 L I & O for Last 24 hours: Intake & Output 08/07/19 08/08/19 08/09/19 08/10/19 23:59 23:59 23:59 23:59 Intake Total 730 / 730 2019 2401 / 2401 Output Total 450 / 450 850 / 850 1300 / 1300 200 / 200 Balance -450 / -450 -120 / -120 720 / 720 2201 / 2201 Weight 56.444 kg 58.088 kg 58.967 kg 60.951 kg Microbiology Reports for the Last 24 Hours: Microbiology 08/08/19 07:25 Sputum - Expectorated Sputum Gram Stain - Final 08/08/19 07:25 Sputum - Expectorated Sputum Sputum Culture - Preliminary Gram Negative Rods 08/07/19 14:45 Blood Blood Culture - Preliminary NO GROWTH AFTER 48 HOURS 08/07/19 15:00 Blood Blood Culture - Preliminary NO GROWTH AFTER 48 HOURS 08/07/19 14:45 Blood Blood Culture - Preliminary NO GROWTH AFTER 48 HOURS Assessment and Plan (1) Pneumonia Current visit: Yes Status: Acute Qualifiers: Pneumonia type: due to unspecified organism Laterality: left Lung location: unspecified part of lung Qualified Code(s): J18.9 - Pneumonia, unspecified organism Category: Medical Code(s): J18.9 - Pneumonia, unspecified organism (2) Sepsis Current visit: Yes Status: Acute Qualifiers: Sepsis type: sepsis due to unspecified organism Sepsis acute organ dysfunction status: unspecified Qualified Code(s): A41.9 - Sepsis, unspecified organism Category: Medical Code(s): A41.9 - Sepsis, unspecified organism (3) Hypokalemia Current visit: Yes Status: Acute Category: Medical Code(s): E87.6 - Hypokalemia (4) COPD (chronic obstructive pulmonary disease) Current visit: Yes Status: Chronic Category: Medical Code(s): J44.9 - Chronic obstructive pulmonary disease, unspecified (5) Anxiety Current visit: Yes Status: Chronic Category: Medical Code(s): F41.9 - Anxiety disorder, unspecified (6) Anemia Current visit: Yes Status: Acute Category: Medical Code(s): D64.9 - Anemia, unspecified (7) Breast cancer Current visit: Yes Status: Chronic Category: Medical Code(s): C50.919 - Malignant neoplasm of unspecified site of unspecified female breast (8) Chemotherapy adverse reaction Current visit: Yes Status: Acute Category: Medical Code(s): T45.1X5A - Adverse effect of antineoplastic and immunosuppressive drugs, initial encounter (9) GERD (gastroesophageal reflux disease) Current visit: Yes Status: Chronic Category: Medical Code(s): K21.9 - Gastro-esophageal reflux disease without esophagitis The patient's infection will respond to the chosen ABx?: Yes Is the patient receiving the right drug, dose, and route?: Yes Could a more targeted ABx be ordered?: No (CULTURE GROWNING GRAM - RODS.)
--- NOTE | 2019-08-11 08:19 | Progress Note ---
<Ann Galvan - Last Filed: 08/11/19 08:16> Internal Medicine - PN: Subj *Date: 08/11/19 *Time: 08:16 Interval history: Patient states she feels about the same today. She still has a cough and shortness of breath. She states she has "pain in her lungs." She rested a little bit better last night and is tolerating her breakfast this morning. She does request something for constipation as she has not had a bowel movement in 3 days. Exam Vital signs and Labs for Last 24 Hours: Temp Pulse Resp BP Pulse Ox 97.8 F 94 H 24 163/77 H 98 08/11/19 04:00 08/11/19 05:48 08/11/19 04:29 08/11/19 04:00 08/11/19 05:48 I & O for Last 24 hours: Intake & Output 08/08/19 08/09/19 08/10/19 08/11/19 11:59 11:59 11:59 11:59 Intake Total 220 / 220 1930 / 1930 3001 / 3001 1338 / 1338 Output Total 1300 / 1300 200 / 200 2400 / 2400 875 / 875 Balance -1080 / -1080 1730 / 1730 601 / 601 463 / 463 Weight 128 lb 1 oz 130 lb 134 lb 6 oz 136 lb 4 oz Microbiology Reports for the Last 24 Hours: Microbiology 08/08/19 07:25 Sputum - Expectorated Sputum Gram Stain - Final 08/08/19 07:25 Sputum - Expectorated Sputum Sputum Culture - Preliminary Gram Negative Rods Radiology Reports for the Last 24 Hours: CXR - Worsening left lower lobe pneumonia with left-sided pleural effusion and developing patchy infiltrate in the right perihilar region with pulmonary venous congestion suggesting plasma volume overload - Constitutional no acute distress - *Routine Respiratory Exam Present: decreased breath sounds (on the left), rhonchi, wheezes - *Routine Cardiovascular Exam Present: RRR - *Routine Abdominal Exam Present: soft, normoactive bowel sounds. Absent: tenderness - *Routine Extremities Exam Absent: cyanosis, clubbing, edema - *Routine Skin Exam Present: warm. Absent: rash - *Routine Neurological Exam Present: alert, oriented X3 Assessment and Plan (1) Pneumonia Current visit: Yes Status: Acute Qualifiers: Pneumonia type: due to unspecified organism Laterality: left Lung location: unspecified part of lung Qualified Code(s): J18.9 - Pneumonia, unspecified organism Category: Medical Code(s): J18.9 - Pneumonia, unspecified organism (2) Sepsis Current visit: Yes Status: Acute Qualifiers: Sepsis type: sepsis due to unspecified organism Sepsis acute organ dysfunction status: unspecified Qualified Code(s): A41.9 - Sepsis, unspecified organism Category: Medical Code(s): A41.9 - Sepsis, unspecified organism (3) Hypokalemia Current visit: Yes Status: Acute Category: Medical Code(s): E87.6 - Hypokalemia (4) COPD (chronic obstructive pulmonary disease) Current visit: Yes Status: Chronic Category: Medical Code(s): J44.9 - Chronic obstructive pulmonary disease, unspecified (5) Anxiety Current visit: Yes Status: Chronic Category: Medical Code(s): F41.9 - Anxiety disorder, unspecified (6) Anemia Current visit: Yes Status: Acute Category: Medical Code(s): D64.9 - A nemia, unspecified (7) Breast cancer Current visit: Yes Status: Chronic Category: Medical Code(s): C50.919 - Malignant neoplasm of unspecified site of unspecified female breast (8) Chemotherapy adverse reaction Current visit: Yes Status: Acute Category: Medical Code(s): T45.1X5A - Adverse effect of antineoplastic and immunosuppressive drugs, initial encounter (9) GERD (gastroesophageal reflux disease) Current visit: Yes Status: Chronic Category: Medical Code(s): K21.9 - Gastro-esophageal reflux disease without esophagitis - Assessment and plan all Dx Assessment and Plan for all problems:: Chest x-ray looked a little worse yesterday. Patient's sputum is growing gram- negative rods. Awaiting final sputum culture. <Louie Land - Last Filed: 08/11/19 10:44> Internal Medicine - PN: Subj *Date: 08/11/19 *Time: 10:42 Exam Vital signs and Labs for Last 24 Hours: Temp Pulse Resp BP Pulse Ox 97.6 F 100 H 19 178/80 H 98 08/11/19 08:00 08/11/19 08:00 08/11/19 08:00 08/11/19 08:00 08/11/19 08:00 I & O for Last 24 hours: Intake & Output 08/08/19 08/09/19 08/10/19 08/11/19 11:59 11:59 11:59 11:59 Intake Total 220 / 220 1930 / 1930 3151 / 3151 1338 / 1338 Output Total 1300 / 1300 200 / 200 2400 / 2400 1575 / 1575 Balance -1080 / -1080 1730 / 1730 751 / 751 -237 / -237 Weight 128 lb 1 oz 130 lb 134 lb 6 oz 136 lb 4 oz Microbiology Reports for the Last 24 Hours: Microbiology 08/08/19 07:25 Sputum - Expectorated Sputum Gram Stain - Final 08/08/19 07:25 Sputum - Expectorated Sputum Sputum Culture - Final Pseudomonas aeruginosa Assessment and Plan (1) Pneumonia Current visit: Yes Status: Acute Qualifiers: Pneumonia type: due to unspecified organism Laterality: left Lung location: unspecified part of lung Qualified Code(s): J18.9 - Pneumonia, unspecified organism Category: Medical Code(s): J18.9 - Pneumonia, unspecified organism (2) Sepsis Current visit: Yes Status: Acute Qualifiers: Sepsis type: sepsis due to unspecified organism Sepsis acute organ dysfunction status: unspecified Qualified Code(s): A41.9 - Sepsis, unspecified organism Category: Medical Code(s): A41.9 - Sepsis, unspecified organism (3) Hypokalemia Current visit: Yes Status: Acute Category: Medical Code(s): E87.6 - Hypokalemia (4) COPD (chronic obstructive pulmonary disease) Current visit: Yes Status: Chronic Category: Medical Code(s): J44.9 - Chronic obstructive pulmonary disease, unspecified (5) Anxiety Current visit: Yes Status: Chronic Category: Medical Code(s): F41.9 - Anxiety disorder, unspecified (6) Anemia Current visit: Yes Status: Acute Category: Medical Code(s): D64.9 - Anemia, unspecified (7) Breast cancer Current visit: Yes Status: Chronic Category: Medical Code(s): C50.919 - Malignant neoplasm of unspecified site of unspecified female breast (8) Chemotherapy adverse reaction Current visit: Yes Status: Acute Category: Medical Code(s): T45.1X5A - Adverse effect of antineoplastic and immunosuppressive drugs, initial encounter (9) GERD (gastroesophageal reflux disease) Current visit: Yes Status: Chronic Category: Medical Code(s): K21.9 - Gastro-esophageal reflux disease without esophagitis - Assessment and plan all Dx Assessment and Plan for all problems:: Pt seen and examined. SHe is sitting up in chair and appears comfortable. Remains very dyspneic with exertion. On exam, there is less wheezing. Still with diminished BS in left base. CXR showed persistent LLL pneumonia and pulmonary venous congestion. Will continue with Lasix. IVF have been stopped.
[2019-08-12 07:10] LABS: Anion Gap 9.2 mEq/L (5-15); Calcium 8.9 mg/dL (8.5-10.1)
[2019-08-12 07:13] LABS: Basophils # 0.1 K/mm3 (0-0.2); Basophils % 0.6 % (0.1-2.0); Eosinophils # 0.1 K/mm3 (0.0-0.4); Eosinophils % 0.4 % (0.1-12.0); Hematocrit 32.7 % (37.0-47.0); Hemoglobin 10.7 g/dL (12.2-16.2); Lymphocytes # 1.3 K/mm3 (0.7-4.5); Mean Corpuscular HGB Conc 32.6 g/dL (31.8-35.4); Mean Corpuscular Volume 88.8 fl (81-99); Mean Platelet Volume 6.5 fl (7.4-10.4); Monocytes # 1.1 K/mm3 (0.1-1.0); Monocytes % 9.3 % (1.7-9.3); Neutrophils # 9.4 K/mm3 (1.8-7.8); Neutrophils % 78.7 % (37.0-80.0); Platelet Count 613 K/mm3 (142-424); Red Blood Count 3.68 M/mm3 (4.20-5.40); Red Cell Distribution Width 15.6 % (11.5-17.5)
--- NOTE | 2019-08-12 08:23 | Progress Note ---
<Ann Galvan - Last Filed: 08/12/19 08:19> Internal Medicine - PN: Subj *Date: 08/12/19 *Time: 08:19 Interval history: The patient states that she had a coughing spell throughout the night and became short of breath. She also had some lower extremity edema. Lasix was ordered and it seemed to help. She is requesting some cough medication today and an incentive spirometer. She did not rest well did eat some breakfast this morning. Exam Vital signs and Labs for Last 24 Hours: Temp Pulse Resp BP Pulse Ox 97.7 F 102 H 26 H 148/74 H 96 08/12/19 08:00 08/12/19 08:00 08/12/19 08:00 08/12/19 08:00 08/12/19 08:00 Laboratory Results - last 24 hr 08/12/19 06:30: WBC 12.0 H D, RBC 3.68 L, Hgb 10.7 L, Hct 32.7 L, MCV 88.8, MCH 29.0, MCHC 32.6, RDW 15.6, Plt Count 613 H D, MPV 6.5 L, Neut % (Auto) 78.7, Lymph % (Auto) 11.0, [place] % (Auto) 9.3, Eos % (Auto) 0.4, Baso % (Auto) 0.6, Neut # (Auto) 9.4 H, Lymph # (Auto) 1.3, [place] # (Auto) 1.1 H, Eos # (Auto) 0.1, Baso # (Auto) 0.1 08/12/19 06:30: Sodium 135 L, Potassium 4.2, Chloride 98, Carbon Dioxide 32 D, Anion Gap 9.2, BUN 16 D, Creatinine 0.90 D, Estimated Creat Clear 50, Estimated GFR 62, Est GFR ( Amer) 75 D, Glucose 108 H, Calcium 8.9 I & O for Last 24 hours: Intake & Output 08/09/19 08/10/19 08/11/19 08/12/19 11:59 11:59 11:59 11:59 Intake Total 1930 / 1930 3151 / 3151 1338 / 1338 930 / 930 Output Total 200 / 200 2400 / 2400 2225 / 2225 3200 / 3200 Balance 1730 / 1730 751 / 751 -887 / -887 -2270 / -2270 Weight 130 lb 134 lb 6 oz 136 lb 4 oz 133 lb 1.983 oz Microbiology Reports for the Last 24 Hours: Microbiology 08/08/19 07:25 Sputum - Expectorated Sputum Gram Stain - Final 08/08/19 07:25 Sputum - Expectorated Sputum Sputum Culture - Final Pseudomonas aeruginosa - Constitutional no acute distress (He did he still really pale although) - *Routine Respiratory Exam Present: rhonchi, wheezes. Absent: rales - *Routine Cardiovascular Exam Present: RRR - *Routine Abdominal Exam Present: soft, normoactive bowel sounds. Absent: tenderness - *Routine Extremities Exam Absent: cyanosis, clubbing, edema - *Routine Skin Exam Present: warm. Absent: rash - *Routine Neurological Exam Present: alert, oriented X3 Assessment and Plan (1) Pneumonia Current visit: Yes Status: Acute Qualifiers: Pneumonia type: due to unspecified organism Laterality: left Lung location: unspecified part of lung Qualified Code(s): J18.9 - Pneumonia, unspecified organism Category: Medical Code(s): J18.9 - Pneumonia, unspecified organism (2) Sepsis Current visit: Yes Status: Acute Qualifiers: Sepsis type: sepsis due to unspecified organism Sepsis acute organ dysfunction status: unspecified Qualified Code(s): A41.9 - Sepsis, unspecified organism Category: Medical Code(s): A41.9 - Sepsis, unspecified organism (3) Hypokalemia Current visit: Yes Status: Acute Category: Medical Code(s): E87.6 - Hypokalemia (4) COPD (chronic obstructive pulmonary disease) Current visit: Yes Status: Chronic Category: Medical Code(s): J44.9 - Chronic obstructive pulmonary disease, unspecified (5) Anxiety Current visit: Yes Status: Chronic Category: Medical Code(s): F41.9 - Anxiety disorder, unspecified (6) Anemia Current visit: Yes Status: Acute Category: Medical Code(s): D64.9 - Anemia, unspecified (7) Breast cancer Current visit: Yes Status: Chronic Category: Medical Code(s): C50.919 - Malignant neoplasm of unspecified site of unspecified female breast (8) Chemotherapy adverse reaction Current visit: Yes Status: Acute Category: Medical Code(s): T45.1X5A - Adverse effect of antineoplastic and immunosuppressive drugs, initial encounter (9) GERD (gastroesophageal reflux disease) Current visit: Yes Status: Chronic Category: Medical Code(s): K21.9 - Gastro-esophageal reflux disease without esophagitis - Assessment and plan all Dx Assessment and Plan for all problems:: Patient's sputum culture returned positive for Pseudomonas, which is sensitive to Levaquin. We will start her on some Promethazine DM cough syrup and an incentive spirometer. <Louie Land - Last Filed: 08/12/19 12:40> Internal Medicine - PN: Subj *Date: 08/12/19 *Time: 12:37 Exam Vital signs and Labs for Last 24 Hours: Temp Pulse Resp BP Pulse Ox 97.9 F 96 H 32 H 141/73 H 96 08/12/19 12:00 08/12/19 12:00 08/12/19 12:00 08/12/19 12:00 08/12/19 12:00 Laboratory Results - last 24 hr 08/12/19 06:30: WBC 12.0 H D, RBC 3.68 L, Hgb 10.7 L, Hct 32.7 L, MCV 88.8, MCH 29.0, MCHC 32.6, RDW 15.6, Plt Count 613 H D, MPV 6.5 L, Neut % (Auto) 78.7, Lymph % (Auto) 11.0, [place] % (Auto) 9.3, Eos % (Auto) 0.4, Baso % (Auto) 0.6, Neut # (Auto) 9.4 H, Lymph # (Auto) 1.3, [place] # (Auto) 1.1 H, Eos # (Auto) 0.1, Baso # (Auto) 0.1 08/12/19 06:30: Sodium 135 L, Potassium 4.2, Chloride 98, Carbon Dioxide 32 D, Anion Gap 9.2, BUN 16 D, Creatinine 0.90 D, Estimated Creat Clear 50, Estimated GFR 62, Est GFR ( Amer) 75 D, Glucose 108 H, Calcium 8.9 I & O for Last 24 hours: Intake & Output 08/10/19 08/11/19 08/12/19 08/13/19 11:59 11:59 11:59 11:59 Intake Total 3151 / 3151 1488 / 1488 930 / 930 Output Total 2400 / 2400 2225 / 2225 3200 / 3200 Balance 751 / 751 -737 / -737 -2270 / -2270 Weight 134 lb 6 oz 136 lb 4 oz 133 lb 1.983 oz Microbiology Reports for the Last 24 Hours: Microbiology 08/08/19 07:25 Sputum - Expectorated Sputum Gram Stain - Final 08/08/19 07:25 Sputum - Expectorated Sputum Sputum Culture - Final Pseudomonas aeruginosa Assessment and Plan (1) Pseudomonas pneumonia Current visit: Yes Status: Acute Category: Medical Code(s): J15.1 - Pneumonia due to Pseudomonas (2) Sepsis Current visit: Yes Status: Acute Qualifiers: Sepsis type: sepsis due to unspecified organism Sepsis acute organ dysfunction status: unspecified Qualified Code(s): A41.9 - Sepsis, unspecified organism Category: Medical Code(s): A41.9 - Sepsis, unspecified organism (3) Hypokalemia Current visit: Yes Status: Acute Category: Medical Code(s): E87.6 - Hypokalemia (4) COPD (chronic obstructive pulmonary disease) Current visit: Yes Status: Chronic Category: Medical Code(s): J44.9 - Chronic obstructive pulmonary disease, unspecified (5) Anxiety Current visit: Yes Status: Chronic Category: Medical Code(s): F41.9 - Anxiety disorder, unspecified (6) Anemia Current visit: Yes Status: Acute Category: Medical Code(s): D64.9 - Anemia, unspecified (7) Breast cancer Current visit: Yes Status: Chronic Category: Medical Code(s): C50.919 - Malignant neoplasm of unspecified site of unspecified female breast (8) Chemotherapy adverse reaction Current visit: Yes Status: Acute Category: Medical Code(s): T45.1X5A - Adverse effect of antineoplastic and immunosuppressive drugs, initial encounter (9) GERD (gastroesophageal reflux disease) Current visit: Yes Status: Chronic Category: Medical Code(s): K21.9 - Gastro-esophageal reflux disease without esophagitis - Assessment and plan all Dx Assessment and Plan for all problems:: Patient seen and examined this morning. Concur with above assessment and plan. We will continue diuresis with Lasix. Encourage out of bed activity.
--- NOTE | 2019-08-13 08:47 | Progress Note ---
<Ann Galvan - Last Filed: 08/13/19 08:45> Internal Medicine - PN: Subj *Date: 08/13/19 *Time: 08:45 Interval history: Patient states she feels about the same today. Her daughter is concerned with slow progress. She is requesting a repeat chest x-ray today. The patient did rest well last night after taking cough medication. She states she woke up around 5 AM and began coughing again. Her only complaint of pain is in her stomach. She thinks this is muscular pain due to coughing. She has been able to cough up some yellow sputum this morning. She still remains very weak. Exam Vital signs and Labs for Last 24 Hours: Temp Pulse Resp BP Pulse Ox 99.1 F 95 H 18 154/46 H 94 L 08/13/19 08:00 08/13/19 08:00 08/13/19 08:00 08/13/19 08:00 08/13/19 08:00 I & O for Last 24 hours: Intake & Output 08/10/19 08/11/19 08/12/19 08/13/19 11:59 11:59 11:59 11:59 Intake Total 3151 / 3151 1488 / 1488 930 / 930 720 / 720 Output Total 2400 / 2400 2225 / 2225 3200 / 3200 1700 / 1700 Balance 751 / 751 -737 / -737 -2270 / -2270 -980 / -980 Weight 134 lb 6 oz 136 lb 4 oz 133 lb 1.983 oz Microbiology Reports for the Last 24 Hours: Microbiology 08/07/19 14:45 Blood Blood Culture - Final NO GROWTH AFTER 5 DAYS 08/07/19 15:00 Blood Blood Culture - Final NO GROWTH AFTER 5 DAYS 08/07/19 14:45 Blood Blood Culture - Final NO GROWTH AFTER 5 DAYS - Constitutional no acute distress - *Routine Respiratory Exam Present: wheezes, crackles (bibasilar) - *Routine Cardiovascular Exam Present: RRR - *Routine Abdominal Exam Present: soft, normoactive bowel sounds. Absent: tenderness - *Routine Extremities Exam Absent: cyanosis, clubbing, edema - *Routine Skin Exam Present: warm. Absent: rash - *Routine Neurological Exam Present: alert, oriented X3 Assessment and Plan (1) Pseudomonas pneumonia Current visit: Yes Status: Acute Category: Medical Code(s): J15.1 - Pneumonia due to Pseudomonas (2) Sepsis Current visit: Yes Status: Acute Qualifiers: Sepsis type: sepsis due to unspecified organism Sepsis acute organ dysfunction status: unspecified Qualified Code(s): A41.9 - Sepsis, unspecified organism Category: Medical Code(s): A41.9 - Sepsis, unspecified organism (3) Hypokalemia Current visit: Yes Status: Acute Category: Medical Code(s): E87.6 - Hypokalemia (4) COPD (chronic obstructive pulmonary disease) Current visit: Yes Status: Chronic Category: Medical Code(s): J44.9 - Chronic obstructive pulmonary disease, unspecified (5) Anxiety Current visit: Yes Status: Chronic Category: Medical Code(s): F41.9 - Anxiety disorder, unspecified (6) Anemia Current visit: Yes Status: Acute Category: Medical Code(s): D64.9 - Anemia, unspecified (7) Breast cancer Current visit: Yes Status: Chronic Category: Medical Code(s): C50.919 - Malignant neoplasm of unspecified site of unspecified female breast (8) Chemotherapy adverse reaction Current visit: Yes Status: Acute Category: Medical Code(s): T45.1X5A - Adverse effect of antineoplastic and immunosuppressive drugs, initial encounter (9) GERD (gastroesophageal reflux disease) Current visit: Yes Status: Chronic Category: Medical Code(s): K21.9 - Gastro-esophageal reflux disease without esophagitis - Assessment and plan all Dx Assessment and Plan for all problems:: We will continue current treatment and get a repeat chest x-ray today. <Louie Land - Last Filed: 08/13/19 09:01> Internal Medicine - PN: Subj *Date: 08/13/19 *Time: 08:56 Exam Vital signs and Labs for Last 24 Hours: Temp Pulse Resp BP Pulse Ox 99.1 F 95 H 18 154/46 H 94 L 08/13/19 08:00 08/13/19 08:00 08/13/19 08:00 08/13/19 08:00 08/13/19 08:00 I & O for Last 24 hours: Intake & Output 08/10/19 08/11/19 08/12/19 08/13/19 11:59 11:59 11:59 11:59 Intake Total 3151 / 3151 1488 / 1488 930 / 930 720 / 720 Output Total 2400 / 2400 2225 / 2225 3200 / 3200 1700 / 1700 Balance 751 / 751 -737 / -737 -2270 / -2270 -980 / -980 Weight 134 lb 6 oz 136 lb 4 oz 133 lb 1.983 oz Microbiology Reports for the Last 24 Hours: Microbiology 08/07/19 14:45 Blood Blood Culture - Final NO GROWTH AFTER 5 DAYS 08/07/19 15:00 Blood Blood Culture - Final NO GROWTH AFTER 5 DAYS 08/07/19 14:45 Blood Blood Culture - Final NO GROWTH AFTER 5 DAYS Assessment and Plan (1) Pseudomonas pneumonia Current visit: Yes Status: Acute Category: Medical Code(s): J15.1 - Pneumonia due to Pseudomonas (2) Sepsis Current visit: Yes Status: Acute Qualifiers: Sepsis type: sepsis due to unspecified organism Sepsis acute organ dysfunction status: unspecified Qualified Code(s): A41.9 - Sepsis, unspecified organism Category: Medical Code(s): A41.9 - Sepsis, unspecified organism (3) Hypokalemia Current visit: Yes Status: Acute Category: Medical Code(s): E87.6 - Hypokalemia (4) COPD (chronic obstructive pulmonary disease) Current visit: Yes Status: Chronic Category: Medical Code(s): J44.9 - Chronic obstructive pulmonary disease, unspecified (5) Anxiety Current visit: Yes Status: Chronic Category: Medical Code(s): F41.9 - Anxiety disorder, unspecified (6) Anemia Current visit: Yes Status: Acute Category: Medical Code(s): D64.9 - Anemia, unspecified (7) Breast cancer Current visit: Yes Status: Chronic Category: Medical Code(s): C50.919 - Malignant neoplasm of unspecified site of unspecified female breast (8) Chemotherapy adverse reaction Current visit: Yes Status: Acute Category: Medical Code(s): T45.1X5A - Adverse effect of antineoplastic and immunosuppressive drugs, initial encounter (9) GERD (gastroesophageal reflux disease) Current visit: Yes Status: Chronic Category: Medical Code(s): K21.9 - Gastro-esophageal reflux disease without esophagitis - Assessment and plan all Dx Assessment and Plan for all problems:: Patient seen and examined. Concur with above. Discussed expectations with patient and daughter in that her progress will be slow in light of comorbidities of COPD, cancer and chemo.
[2019-08-14 07:00] LABS: Basophils # 0.1 K/mm3 (0-0.2); Basophils % 0.7 % (0.1-2.0); Eosinophils # 0.3 K/mm3 (0.0-0.4); Eosinophils % 2.8 % (0.1-12.0); Hematocrit 31.9 % (37.0-47.0); Hemoglobin 9.9 g/dL (12.2-16.2); Lymphocytes # 1.6 K/mm3 (0.7-4.5); Lymphocytes % 13.4 % (10-50); Mean Platelet Volume 7.8 fl (7.4-10.4); Monocytes # 0.7 K/mm3 (0.1-1.0); Monocytes % 5.8 % (1.7-9.3); Neutrophils # 9.3 K/mm3 (1.8-7.8); Neutrophils % 77.2 % (37.0-80.0); Platelet Count 511 K/mm3 (142-424); Red Blood Count 3.47 M/mm3 (4.20-5.40); Red Cell Distribution Width 14.8 % (11.5-17.5)
[2019-08-14 07:18] LABS: Albumin Level 1.8 gm/dL (3.4-5.0); Albumin/Globulin Ratio 0.5 (1.1-1.8); Anion Gap 9.5 mEq/L (5-15); Bilirubin,Total 0.2 mg/dL (0.2-1.0); Calcium 8.5 mg/dL (8.5-10.1); Globulin 3.6 gm/dl (1.3-3.2); Total Protein,Serum 5.4 gm/dL (6.4-8.2)
--- NOTE | 2019-08-14 08:44 | Progress Note ---
Internal Medicine - PN: Subj *Date: 08/14/19 *Time: 08:40 Interval history: She rested better last night with no episodes of dyspnea. She has been tolerating out of bed activity but has not been walking much. Appetite has improved. She still has a cough which is occasionally productive. No chest pain. Exam Vital signs and Labs for Last 24 Hours: Temp Pulse Resp BP Pulse Ox 98.7 F 86 18 150/60 H 95 08/14/19 08:00 08/14/19 08:00 08/14/19 08:00 08/14/19 08:00 08/14/19 08:00 Laboratory Results - last 24 hr 08/14/19 06:49: WBC 12.0 H, RBC 3.47 L, Hgb 9.9 L, Hct 31.9 L, MCV 92.0, MCH 28.5, MCHC 31.0 L, RDW 14.8, Plt Count 511 H, MPV 7.8, Neut % (Auto) 77.2, Lymph % (Auto) 13.4, [place] % (Auto) 5.8, Eos % (Auto) 2.8, Baso % (Auto) 0.7, Neut # (Auto) 9.3 H, Lymph # (Auto) 1.6, [place] # (Auto) 0.7, Eos # (Auto) 0.3, Baso # (Auto) 0.1 08/14/19 06:49: Sodium 137, Potassium 4.5, Chloride 102, Carbon Dioxide 30, Anion Gap 9.5, BUN 12, Creatinine 0.69 D, Estimated Creat Clear 48, Estimated GFR 84, Est GFR ( Amer) 102 D, Glucose 95, Calcium 8.5, Total Bilirubin 0.2, AST 39 H, ALT 60, Alkaline Phosphatase 36 L, Total Protein 5.4 L, Albumin 1.8 L, Globulin 3.6 H, Albumin/Globulin Ratio 0.5 L I & O for Last 24 hours: Intake & Output 08/11/19 08/12/19 08/13/19 08/14/19 11:59 11:59 11:59 11:59 Intake Total 1488 / 1488 1080 / 1080 720 / 720 240 / 240 Output Total 2225 / 2225 3200 / 3200 1700 / 1700 200 / 200 Balance -737 / -737 -2120 / -2120 -980 / -980 40 / 40 Weight 136 lb 4 oz 133 lb 1.983 oz 127 lb 3 oz Narrative: She is sitting up in the chair. She is alert and oriented. Color is good. Chest reveals bibasilar crackles and wheezes. Breath sounds diminished in left base. Heart is regular. Abdomen soft and nondistended with no unusual masses or tenderness. Extremities no edema. Assessment and Plan (1) Pseudomonas pneumonia Current visit: Yes Status: Acute Category: Medical Code(s): J15.1 - Pneumonia due to Pseudomonas (2) Sepsis Current visit: Yes Status: Acute Qualifiers: Sepsis type: sepsis due to unspecified organism Sepsis acute organ dysf unction status: unspecified Qualified Code(s): A41.9 - Sepsis, unspecified organism Category: Medical Code(s): A41.9 - Sepsis, unspecified organism (3) Hypokalemia Current visit: Yes Status: Acute Category: Medical Code(s): E87.6 - Hypokalemia (4) COPD (chronic obstructive pulmonary disease) Current visit: Yes Status: Chronic Category: Medical Code(s): J44.9 - Chronic obstructive pulmonary disease, unspecified (5) Anxiety Current visit: Yes Status: Chronic Category: Medical Code(s): F41.9 - Anxiety disorder, unspecified (6) Anemia Current visit: Yes Status: Acute Category: Medical Code(s): D64.9 - Anemia, unspecified (7) Breast cancer Current visit: Yes Status: Chronic Category: Medical Code(s): C50.919 - Malignant neoplasm of unspecified site of unspecified female breast (8) Chemotherapy adverse reaction Current visit: Yes Status: Acute Category: Medical Code(s): T45.1X5A - Adverse effect of antineoplastic and immunosuppressive drugs, initial encounter (9) GERD (gastroesophageal reflux disease) Current visit: Yes Status: Chronic Category: Medical Code(s): K21.9 - Gastro-esophageal reflux disease without esophagitis - Assessment and plan all Dx Assessment and Plan for all problems:: Up with assistance. Switch to po Levaquin. D/c IV fluids. Family is concerned she is too weak to manage at home. Will consult care management for discharge planning.
--- NOTE | 2019-08-15 08:17 | Progress Note ---
<Uzma Sood - Last Filed: 08/15/19 08:14> Internal Medicine - PN: Subj *Date: 08/15/19 *Time: 08:14 Interval history: Patient states she is making progress. She has shortness of breath with exertion. She denies chest pain. She has been out of bed in the chair but has not walked. She is eating a little bit better without nausea. Her bowel movements are soft now. She is voiding QS. Exam Vital signs and Labs for Last 24 Hours: Temp Pulse Resp BP Pulse Ox 97.9 F 93 H 20 138/84 97 08/15/19 07:54 08/15/19 07:54 08/15/19 07:54 08/15/19 07:54 08/15/19 07:54 I & O for Last 24 hours: Intake & Output 08/12/19 08/13/19 08/14/19 08/15/19 11:59 11:59 11:59 11:59 Intake Total 1080 / 1080 720 / 720 240 / 240 480 / 480 Output Total 3200 / 3200 1700 / 1700 200 / 200 1250 / 1250 Balance -2120 / -2120 -980 / -980 40 / 40 -770 / -770 Weight 133 lb 1.983 oz 127 lb 3 oz 126 lb 8 oz - Constitutional no acute distress Comments: Sitting up in the bed eating her breakfast. Appears comfortable. Converses without dyspnea. - *Routine Respiratory Exam Comments: Bilateral scattered wheezing and crackles. - *Routine Cardiovascular Exam Present: RRR - *Routine Abdominal Exam Present: soft, normoactive bowel sounds. Absent: tenderness - *Routine Extremities Exam Present: edema (Trace bilateral) - *Routine Neurological Exam Present: alert, oriented X3 Assessment and Plan (1) Pseudomonas pneumonia Current visit: Yes Status: Acute Category: Medical Code(s): J15.1 - Pneumonia due to Pseudomonas (2) Sepsis Current visit: Yes Status: Acute Qualifiers: Sepsis type: sepsis due to unspecified organism Sepsis acute organ dysfunction status: unspecified Qualified Code(s): A41.9 - Sepsis, unspecified organism Category: Medical Code(s): A41.9 - Sepsis, unspecified organism (3) Hypokalemia Current visit: Yes Status: Acute Category: Medical Code(s): E87.6 - Hypokalemia (4) COPD (chronic obstructive pulmonary disease) Current visit: Yes Status: Chronic Category: Medical Code(s): J44.9 - Chronic obstructive pulmonary disease, unspecified (5) Anxiety Current visit: Yes Status: Chronic Category: Medical Code(s): F41.9 - Anxiety disorder, unspecified (6) Anemia Current visit: Yes Status: Acute Category: Medical Code(s): D64.9 - Anemia, unspecified (7) Breast cancer Current visit: Yes Status: Chronic Category: Medical Code(s): C50.919 - Malignant neoplasm of unspecified site of unspecified female breast (8) Chemotherapy adverse reaction Current visit: Yes Status: Acute Category: Medical Code(s): T45.1X5A - Adverse effect of antineoplastic and immunosuppressive drugs, initial encounter (9) GERD (gastroesophageal reflux disease) Current visit: Yes Status: Chronic Category: Medical Code(s): K21.9 - Gastro-esophageal reflux disease without esophagitis (10) Debility Current visit: Yes Status: Acute Category: Medical Code(s): R53.81 - Other malaise - Assessment and plan all Dx Assessment and Plan for all problems:: Patient will need PT and OT eval. She would like to be placed for ongoing rehab and care. Care management is in the process of evaluating. <Louie Land - Last Filed: 08/15/19 13:14> Internal Medicine - PN: Subj *Date: 08/15/19 *Time: 13:13 Exam Vital signs and Labs for Last 24 Hours: Temp Pulse Resp BP Pulse Ox 97.9 F 87 20 138/84 97 08/15/19 07:54 08/15/19 10:36 08/15/19 07:54 08/15/19 07:54 08/15/19 07:54 I & O for Last 24 hours: Intake & Output 08/13/19 08/14/19 08/15/19 08/16/19 11:59 11:59 11:59 11:59 Intake Total 720 / 720 240 / 240 480 / 480 Output Total 1700 / 1700 200 / 200 1250 / 1250 Balance -980 / -980 40 / 40 -770 / -770 Weight 127 lb 3 oz 126 lb 8 oz Assessment and Plan (1) Pseudomonas pneumonia Current visit: Yes Status: Acute Category: Medical Code(s): J15.1 - Pneumonia due to Pseudomonas (2) Sepsis Current visit: Yes Status: Acute Qualifiers: Sepsis type: sepsis due to unspecified organism Sepsis acute organ dysf unction status: unspecified Qualified Code(s): A41.9 - Sepsis, unspecified organism Category: Medical Code(s): A41.9 - Sepsis, unspecified organism (3) Hypokalemia Current visit: Yes Status: Acute Category: Medical Code(s): E87.6 - Hypokalemia (4) COPD (chronic obstructive pulmonary disease) Current visit: Yes Status: Chronic Category: Medical Code(s): J44.9 - Chronic obstructive pulmonary disease, unspecified (5) Anxiety Current visit: Yes Status: Chronic Category: Medical Code(s): F41.9 - Anxiety disorder, unspecified (6) Anemia Current visit: Yes Status: Acute Category: Medical Code(s): D64.9 - Anemia, unspecified (7) Breast cancer Current visit: Yes Status: Chronic Category: Medical Code(s): C50.919 - Malignant neoplasm of unspecified site of unspecified female breast (8) Chemotherapy adverse reaction Current visit: Yes Status: Acute Category: Medical Code(s): T45.1X5A - Adverse effect of antineoplastic and immunosuppressive drugs, initial encounter (9) GERD (gastroesophageal reflux disease) Current visit: Yes Status: Chronic Category: Medical Code(s): K21.9 - Gastro-esophageal reflux disease without esophagitis (10) Debility Current visit: Yes Status: Acute Category: Medical Code(s): R53.81 - Other malaise - Assessment and plan all Dx Assessment and Plan for all problems:: Patient seen and examined. Concur with above assessment and plan.
--- NOTE | 2019-08-16 08:15 | Progress Note ---
<Uzma Sood - Last Filed: 08/16/19 08:10> Internal Medicine - PN: Subj *Date: 08/16/19 *Time: 08:10 Interval history: Patient had a bad breathing spell last night. Neb treatment helped. She was able to sleep some then. She is been eating okay. She set up in a chair for about 3 hours yesterday. Plan is for her to go to [place] today. Exam Vital signs and Labs for Last 24 Hours: Temp Pulse Resp BP Pulse Ox 98.1 F 83 19 159/76 H 96 08/16/19 04:00 08/16/19 04:49 08/16/19 04:00 08/16/19 04:00 08/16/19 04:00 I & O for Last 24 hours: Intake & Output 08/13/19 08/14/19 08/15/19 08/16/19 11:59 11:59 11:59 11:59 Intake Total 720 / 720 240 / 240 480 / 480 480 / 480 Output Total 1700 / 1700 200 / 200 1250 / 1250 1400 / 1400 Balance -980 / -980 40 / 40 -770 / -770 -920 / -920 Weight 127 lb 3 oz 126 lb 8 oz 125 lb 5 oz - Constitutional no acute distress Comments: Sitting up at the bedside and appears comfortable. Converses without dyspnea - *Routine Respiratory Exam Comments: Bilateral scattered wheezing. Bilateral crackles in the bases. Diminished breath sounds posteriorly - *Routine Cardiovascular Exam Present: RRR - *Routine Abdominal Exam Present: soft, normoactive bowel sounds. Absent: tenderness - *Routine Extremities Exam Absent: edema Comments: Redness and soreness of bilateral heels - *Routine Neurological Exam Present: alert, oriented X3 Assessment and Plan (1) Pseudomonas pneumonia Status: Acute Category: Medical Code(s): J15.1 - Pneumonia due to Pseudomonas (2) Sepsis Status: Acute Qualifiers: Sepsis type: sepsis due to unspecified organism Sepsis acute organ dysfunction status: unspecified Qualified Code(s): A41.9 - Sepsis, unspecified organism Category: Medical Code(s): A41.9 - Sepsis, unspecified organism (3) Hypokalemia Status: Acute Category: Medical Code(s): E87.6 - Hypokalemia (4) COPD (chronic obstructive pulmonary disease) Status: Chronic Category: Medical Code(s): J44.9 - Chronic obstructive pulmonary disease, unspecified (5) Anxiety Status: Chronic Category: Medical Code(s): F41.9 - Anxiety disorder, unspecified (6) Anemia Status: Acute Category: Medical Code(s): D64.9 - Anemia, unspecified (7) Breast cancer Status: Chronic Category: Medical Code(s): C50.919 - Malignant neoplasm of unspecified site of unspecified female breast (8) Chemotherapy adverse reaction Status: Acute Category: Medical Code(s): T45.1X5A - Adverse effect of antineoplastic and immunosuppressive drugs, initial encounter (9) GERD (gastroesophageal reflux disease) Status: Chronic Category: Medical Code(s): K21.9 - Gastro-esophageal reflux disease without esophagitis (10) Debility Status: Acute Category: Medical Code(s): R53.81 - Other malaise (11) Heel sore Status: Acute Category: Medical Code(s): L98.9 - Disorder of the skin and subcutaneous tissue, unspecified - Assessment and plan all Dx Assessment and Plan for all problems:: Plan is for patient to be discharged to [facility] today for ongoing rehab and care. <Louie Land - Last Filed: 08/20/19 14:22> Internal Medicine - PN: Subj *Date: 08/20/19 *Time: 14:22 Exam Vital signs and Labs for Last 24 Hours: Temp Pulse Resp BP Pulse Ox 98.5 F 89 17 129/52 L 97 08/16/19 12:00 08/16/19 12:00 08/16/19 12:00 08/16/19 12:00 08/16/19 12:00 Assessment and Plan (1) Pseudomonas pneumonia Status: Acute Category: Medical Code(s): J15.1 - Pneumonia due to Pseudomonas (2) Sepsis Status: Acute Qualifiers: Sepsis type: sepsis due to unspecified organism Sepsis acute organ dysfunction status: unspecified Qualified Code(s): A41.9 - Sepsis, unspecified organism Category: Medical Code(s): A41.9 - Sepsis, unspecified organism (3) Hypokalemia Status: Acute Category: Medical Code(s): E87.6 - Hypokalemia (4) COPD (chronic obstructive pulmonary disease) Status: Chronic Category: Medical Code(s): J44.9 - Chronic obstructive pulmonary disease, unspecified (5) Anxiety Status: Chronic Category: Medical Code(s): F41.9 - Anxiety disorder, unspecified (6) Anemia Status: Acute Category: Medical Code(s): D64.9 - Anemia, unspecified (7) Breast cancer Status: Chronic Category: Medical Code(s): C50.919 - Malignant neoplasm of unspecified site of unspecified female breast (8) Chemotherapy adverse reaction Status: Acute Category: Medical Code(s): T45.1X5A - Adverse effect of a ntineoplastic and immunosuppressive drugs, initial encounter (9) GERD (gastroesophageal reflux disease) Status: Chronic Category: Medical Code(s): K21.9 - Gastro-esophageal reflux disease without esophagitis (10) Debility Status: Acute Category: Medical Code(s): R53.81 - Other malaise (11) Heel sore Status: Acute Category: Medical Code(s): L98.9 - Disorder of the skin and subcutaneous tissue, unspecified - Assessment and plan all Dx Assessment and Plan for all problems:: Patient seen and examined this morning. Concur with above
--- NOTE | 2019-08-16 09:28 | Discharge Summary ---
General - General Admission date:: 08/07/19 Discharge date: 08/16/19 HPI HPI: Ms. Chappell is a 69-year-old female with a history of arthritis, COPD, asthma, fibromyalgia, panic attacks and anxiety, hypertension, and recent diagnosis of left breast cancer with lumpectomy and chemotherapy who presented to [facility] emergency room after experiencing 3 days of left lower, posterior chest discomfort. She stated the pain progressively worsened until she could not stand it any longer and thus presented to the emergency room. She described being unable to sleep in her bed and was having to sit in the recliner in order to rest. She also described chilling and an infrequent mostly nonproductive cough. She had her third chemotherapy on 08/03/2019. She was also experiencing nausea, vomiting, and diarrhea. She was noted to have a history of COPD and wears oxygen at night. In the emergency room patient received an IV fluid bolus, morphine for the pain, DuoNeb treatment and was started on IV antibiotics. CTA of the chest was negative for pulmonary embolism. She was admitted for further evaluation and treatment. At the time of initial exam patient had been to the bathroom and was somewhat short of breath. She stated the pain in her back was a little bit better. She had minimal sleep during the night. Hospital Course Hospital Course: On admission patient was started on antibiotics, IV fluids, oxygen and duo nebs. She had no further diarrhea but was not eating well. She was able to sit up in the chair although was dyspneic just with talking. She gradually began to eat more with some periodic nausea. Potassium was low and she was started on p.o. as well as IV boluses of potassium. She did have some pulmonary congestion on chest x-ray and was started on Lasix and received steroids. Sputum cultures eventually grew Pseudomonas sensitive to Levaquin and Zosyn was discontinued. Levaquin was transitioned to p.o. She continued to have dyspnea with exertion but in general was less short of breath. She did awaken several times in the middle of the night with shortness of breath and sometimes with coughing spells which duo nebs relieved. Eventually IV fluids were discontinued. She continued with diuresis with Lasix. She made slow progress and family felt that she would need help other than home health at home. PT and OT were consulted. She had more out of bed activity. [facility] accepted her for ongoing care. 08/16/2019 she was felt to be stable to be discharged to [facility]. Meds as per reconciliation medication list and to include antibiotic and duo nebs. She will continue with PT and OT for her rehab. BMP and CBC to be repeated in 1 week. Objective Vital signs: Temp Pulse Resp BP Pulse Ox 98.2 F 90 19 148/80 H 97 08/16/19 08:00 08/16/19 08:00 08/16/19 08:00 08/16/19 08:46 08/16/19 08:00 Narrative: Exam Vital signs and Labs for Last 24 Hours: Temp Pulse Resp BP Pulse Ox 98.1 F 83 19 159/76 H 96 08/16/19 04:00 08/16/19 04:49 08/16/19 04:00 08/16/19 04:00 08/16/19 04:00 I & O for Last 24 hours: Intake & Output 08/13/19 08/14/19 08/15/19 08/16/19 11:59 11:59 11:59 11:59 Intake Total 720 / 720 240 / 240 480 / 480 480 / 480 Output Total 1700 / 1700 200 / 200 1250 / 1250 1400 / 1400 Balance -980 / -980 40 / 40 -770 / -770 -920 / -920 Weight 127 lb 3 oz 126 lb 8 oz 125 lb 5 oz - Constitutional no acute distress Comments: Sitting up at the bedside and appears comfortable. Converses without dyspnea - *Routine Respiratory Exam Comments: Bilateral scattered wheezing. Bilateral crackles in the bases. Diminished breath sounds posteriorly - *Routine Cardiovascular Exam Present: RRR - *Routine Abdominal Exam Present: soft, normoactive bowel sounds. Absent: tenderness - *Routine Extremities Exam Absent: edema Comments: Redness and soreness of bilateral heels - *Routine Neurological Exam Present: alert, oriented X3 Results Completed studies during hospitalization [Text1]: 08/07/2019 chest x-ray IMPRESSION: Left basilar pneumonia,.. With small left pleural effusion 08/07/2019 CTA chest IMPRESSION: 1.. No evidence of pulmonary embolism. Pulmonary arteries unremarkable 2.Aortic. No dissection. No prominent findings 3. Moderate size pneumonic infiltrate & consolidation posterior LLL 4. Small left pleural effusion associated 5. Progression of lymph nodes/soft tissue density subcarinal region right > left as detailed within body of report. The largest collection of nodes measuring up to 3.5 cm length x2.2 x 1.1 cm right subcarinal region. Suggest follow-up CT chest in 3-4 months 6.. New irregular 6 mm nodule medial aspect right lower may be related to scarring or inflammatory process, but also warrants follow-up CT chest 3-4 months.. Stable 5 mm nodule superior left upper lobe lobe, again noted and can be followed 7. Underlying emphysematous changes.. Hyperinflation 8. Small hiatal hernia with borderline -mild wall thickening throughout this region 08/10/2019 repeat chest x-ray IMPRESSION: Worsening left lower lobe pneumonia with left-sided pleural effusion and developing patchy infiltrate in the right perihilar region with pulmonary venous congestion suggesting plasma volume overload 08/13/2019 repeat chest x-ray IMPRESSION: 1. No change left lower lobe pneumonia with effusion. 2. Improvement in right lower lobe airspace disease Laboratory Tests 08/14/19 08/14/19 06:49 06:49 WBC 12.0 H RBC 3.47 L Hgb 9.9 L Hct 31.9 L Plt Count 511 H Neut % (Auto) 77.2 Lymph % (Auto) 13.4 [place] % (Auto) 5.8 Eos % (Auto) 2.8 Baso % (Auto) 0.7 Neut # (Auto) 9.3 H Sodium 137 Potassium 4.5 Chloride 102 Carbon Dioxide 30 Anion Gap 9.5 BUN 12 Creatinine 0.69 D Glucose 95 Calcium 8.5 Total Bilirubin 0.2 AST 39 H ALT 60 Alkaline Phosphatase 36 L Total Protein 5.4 L Albumin 1.8 L Globulin 3.6 H Albumin/Globulin Ratio 0.5 L DS: Diagnosis - Discharge Diagnosis (1) Pseudomonas pneumonia Status: Acute (2) Sepsis Status: Acute (3) Hypokalemia Status: Acute (4) COPD (chronic obstructive pulmonary disease) Status: Chronic (5) Anxiety Status: Chronic (6) Anemia Status: Acute (7) Breast cancer Status: Chronic (8) Chemotherapy adverse reaction Status: Acute (9) GERD (gastroesophageal reflux disease) Status: Chronic (10) Debility Status: Acute (11) Heel sore Status: Acute Discharge Plan - Patient Discharge Instructions ACTIVITY: Continue current activity DIET: regular diet Patient Instructions: Pneumonia-Adult, DI for Pneumonia -- Adult, DI for Sepsis -- Adult - Follow up Plan Follow up with: Louie Land MD [Primary Care Provider] - (at [facility]) Disposition: Xfer SNF Home Medications: Home Medications Medication Instructions Recorded Confirmed Type ALPRAZolam [Alprazolam Odt] 0.5 mg PO BIDP PRN #60 tab 08/16/19 Rx Acetaminophen [Acetaminophen 325mg 650 mg PO Q4HP PRN tab 08/16/19 Rx tab] Cetirizine HCl [Allergy Relief] 10 mg PO HS #30 cap 08/16/19 Rx Esomeprazole Magnesium [Nexium] 40 mg PO DAILY #30 suspdr.pkt 08/16/19 Rx Furosemide [Lasix 20mg tab] 20 mg PO DAILY #30 tab 08/16/19 Rx Gabapentin [Neurontin 600mg 600 mg PO BID #60 tab 08/16/19 Rx tablet] Guaifenesin/Dextromethorphan 10 ml PO Q6HP PRN #240 ml 08/16/19 Rx [Robitussin DM 200mg/20mg 10mL Udc] Ipratropium/Albuterol Sulfate 3 ml IH Q4HP PRN #120 ampul.neb 08/16/19 Rx [Duoneb 3mL neb] Ipratropium/Albuterol Sulfate 3 ml IH QIDRT #120 ampul.neb 08/16/19 Rx [Duoneb 3mL neb] Magic Mouthwash [Magic 5 - 10 ml PO QID #240 ml 08/16/19 Rx Mouthwash;240mL Botttle] Metoclopramide HCl [Metoclopramide 10 mg PO QID #120 tab 08/16/19 Rx 10mg Tablet] Metoprolol Succinate [Toprol XL 50 mg PO BID #60 tab 08/16/19 Rx 50mg Tablet] Montelukast Sodium [Montelukast 10 mg PO HS #30 tab 08/16/19 Rx 10mg Tab] Non Formulary [Pt's Own Medication] 0 each PO DAILY each 08/16/19 Rx Non Formulary [Pt's Own Medication] 2 each PO BID each 08/16/19 Rx Polyethylene Glycol 3350 [Miralax 17 gm PO DAILY #1 bottle 08/16/19 Rx 17gm Packet] Potassium Chloride [Klor-con 20 20 meq PO DAILY #30 tab 08/16/19 Rx mEq tablet] Sertraline HCl [Zoloft] 100 mg PO DAILY #30 tab 08/16/19 Rx Tramadol HCl [Tramadol 50mg 50 mg PO Q6HP PRN #60 tab 08/16/19 Rx Tab] Verapamil HCl 120 mg PO BID #60 tab 08/16/19 Rx levoFLOXacin [Levaquin 750mg 750 mg PO 1100 #5 tab 08/16/19 Rx tablet] Prescriptions/Medication Reconciliation: New Acetaminophen [Acetaminophen 325mg tab] 650 mg PO Q4HP PRN tab PRN Reason: As Needed For Fever Or Pain Non Formulary [Pt's Own Medication] 0 each PO DAILY each Non Formulary [Pt's Own Medication] 2 each PO BID each Gabapentin [Neurontin 600mg tablet] 600 mg PO BID #60 tab Potassium Chloride [Klor-con 20 mEq tablet] 20 meq PO DAILY #30 tab Furosemide [Lasix 20mg tab] 20 mg PO DAILY #30 tab levoFLOXacin [Levaquin 750mg tablet] 750 mg PO 1100 #5 tab Magic Mouthwash [Magic Mouthwash;240mL Botttle] 5 - 10 ml PO QID #240 ml Polyethylene Glycol 3350 [Miralax 17gm Packet] 17 gm PO DAILY #1 bottle Guaifenesin/Dextromethorphan [Robitussin DM 200mg/20mg 10mL Udc] 10 ml PO Q6HP PRN #240 ml PRN Reason: Cough Ipratropium/Albuterol Sulfate [Duoneb 3mL neb] 3 ml IH Q4HP PRN #120 ampul.neb PRN Reason: Shortness Of Breath Ipratropium/Albuterol Sulfate [Duoneb 3mL neb] 3 ml IH QIDRT #120 ampul.neb Continued ALPRAZolam [Alprazolam Odt] 0.5 mg PO BIDP PRN #60 tab PRN Reason: Anxiety Cetirizine HCl [Allergy Relief] 10 mg PO HS #30 cap Metoclopramide HCl [Metoclopramide 10mg Tablet] 10 mg PO QID #120 tab Montelukast Sodium [Montelukast 10mg Tab] 10 mg PO HS #30 tab Esomeprazole Magnesium [Nexium] 40 mg PO DAILY #30 suspdr.pkt Metoprolol Succinate [Toprol XL 50mg Tablet] 50 mg PO BID #60 tab Verapamil HCl 120 mg PO BID #60 tab Sertraline HCl [Zoloft] 100 mg PO DAILY #30 tab Changed Tramadol HCl [Tramadol 50mg Tab] 50 mg PO Q6HP PRN #60 tab PRN Reason: PAIN Discontinued raNITIdine HCl [Ranitidine HCl] 150 mg PO DAILY Gabapentin [Gabapentin 300mg Cap] 600 mg PO BID Albuterol Sulfate [Albuterol HFA Inhaler] 2 puff INHALATION QIDP PRN PRN Reason: Shortness Of Breath Nystatin [Nystatin Susp 500,000 Units/5mL Udc] 5 ml PO QID Trastuzumab [Herceptin] 150 mg IV WEEKLY Lidocaine HCl [Lidocaine viscous 100mL bottle] 5 - 10 ml PO Q6 PRN PRN Reason: mouth sores Mag Hydrox/Aluminum Hyd/Simeth [Gnp Antacid Anti-Gas Liquid] 5 - 10 ml PO Q6 PRN PRN Reason: stomach diphenhydrAMINE HCl [M-Dryl] 5 - 10 ml PO Q6 PRN PRN Reason: Mouth Irritation Magic Mouthwash [Magic Mouthwash;240mL Botttle] 5 - 10 ml PO QID Budesonide/Formoterol Fumarate [Symbicort 160-4.5 Mcg Inhaler] 2 puff INHALATION BID Umeclidinium [place] [Incruse Ellipta] 1 puff IH DAILY PACLitaxel [Taxol 100mg/16.7mL vial] 1 unit IV WEEKLY - Problem Reconciliation Problems Reviewed?: Yes
== END 2019-08-16 13:14 | DRG 179 ==
LOC: ER 12:30 → 2ND 12:30 → OBSVTOIN 16:45 → 2ND 17:51
PROVIDERS: ADMIT Family Medicine; ATTEND Family Medicine
CPT/HCPCS: 36415; 71010; 71020; 71045; 71046; 71275; 80048; 80053; 81001; 83605; 83690; 84132; 84484; 85025; 85378; 87040; 87070; 87077; 87186; 87205; 87275; 87276; 87507; 93005; 94640; 94761; 96365; 96367; 96375; 97110; 97116; 97162; 97166; 97535; 99285; J1956; J2405; J2543; Q9967

== ENCOUNTER → 2020-09-25 16:04 | Outpatient (CLI) | payer MEDICARE, SELFPAY ==
[2020-09-25 17:05] LABS: Basophils # 0.1 K/mm3 (0-0.2); Basophils % 0.7 % (0.1-2.0); Eosinophils # 0.4 K/mm3 (0.0-0.4); Eosinophils % 4.5 % (0.1-12.0); Hematocrit 43.4 % (37.0-47.0); Hemoglobin 13.9 g/dL (12.2-16.2); Lymphocytes # 2.1 K/mm3 (0.7-4.5); Lymphocytes % 24.4 % (10-50); Mean Corpuscular HGB Conc 32.1 g/dL (31.8-35.4); Mean Corpuscular Hemoglobin 29.6 pg (27.0-31.2); Mean Corpuscular Volume 92.3 fl (81-99); Mean Platelet Volume 6.9 fl (7.4-10.4); Monocytes # 0.5 K/mm3 (0.1-1.0); Monocytes % 6.5 % (1.7-9.3); Neutrophils # 5.4 K/mm3 (1.8-7.8); Neutrophils % 63.9 % (37.0-80.0); Platelet Count 366 K/mm3 (142-424); Red Cell Distribution Width 14.4 % (11.5-17.5); White Blood Count 8.4 K/mm3 (4.8-10.8)
[2020-09-28 21:32] LABS: D001-IgE D pteronyssinus <0.10 kU/L (Class 0); D002-IgE D farinae <0.10 kU/L (Class 0); E001-IgE Cat Dander <0.10 kU/L (Class 0); E005-IgE Dog Dander <0.10 kU/L (Class 0); G002-IgE Bermuda Grass 0.35 kU/L (Class I); G006-IgE Timothy Grass 0.36 kU/L (Class I); I006-IgE Cockroach, German <0.10 kU/L (Class 0); Immunoglobulin E, Total 111 IU/mL (6-495); M001-IgE Penicillium chrysogen <0.10 kU/L (Class 0); M002-IgE Cladosporium herbarum 0.14 kU/L (Class 0/I); M003-IgE Aspergillus fumigatus 0.23 kU/L (Class 0/I); M006-IgE Alternaria alternata 0.16 kU/L (Class 0/I); T001-IgE Maple/Box Elder 0.37 kU/L (Class I); T007-IgE Oak, White 0.33 kU/L (Class I); T008-IgE Elm, American 0.32 kU/L (Class I); T010-IgE Walnut 0.64 kU/L (Class II); T011-IgE Maple Leaf Sycamore 0.26 kU/L (Class 0/I); T015-IgE Ash, White 0.36 kU/L (Class I); T022-IgE Pecan, Hickory 0.33 kU/L (Class I); T070-IgE White Mulberry <0.10 kU/L (Class 0); W001-IgE Ragweed, Short <0.10 kU/L (Class 0); W011-IgE Thistle, Russian 0.14 kU/L (Class 0/I); W014-IgE Pigweed, Common <0.10 kU/L (Class 0); W016-IgE Rough Marshelder <0.10 kU/L (Class 0)
[2020-09-29 10:57] LABS: E072-IgE Mouse Urine <0.10 kU/L (Class 0); Immunoglobulin E, Total 100 IU/mL (6-495)
== END ==
PROVIDERS: Visit Provider Internal Medicine Pulmonary Disease
DX: J44.9 Chronic obstructive pulmonary disease, unspecified (principal); J98.4 Other disorders of lung; R06.00 Dyspnea, unspecified; R91.8 Other nonspecific abnormal finding of lung field; R06.2 Wheezing
CPT/HCPCS: 36415; 82785; 85025; 86003

== ENCOUNTER → 2020-11-20 13:41 | Outpatient (CLI) | payer MEDICARE, MEDICAID, SELFPAY ==
--- NOTE | 2020-11-20 13:45 | CT_ITS ---
PROCEDURE: CT CHEST WO CON Referring Doctor: Deedee Zhou Patient Age:70Y CLINICAL INDICATION: Lung nodule followup COMPARISON: CT [facility]WO CT CHEST W/O CONTRAST from 07/16/[address] ANGIO CHEST from 08/07/2019 TECHNIQUE: No IV contrast. Helical axial images obtained with sagittal and coronal reformats. All CT scans at the facility use one or more dose reduction, viz: automated exposure control, ma/kV adjustment per patient size (including targeted exams where dose is matched to indication, i.e. head), or iterative reconstruction technique. FINDINGS: HEART: Unremarkable. Normal heart size. No significant pericardial effusion. MEDIASTINAL AND HILAR STRUCTURES: No mediastinal or hilar mass evident. No dominant adenopathy. Small hiatal hernia suggested PULMONARY ARTERIES: No pulmonary embolus evident. AORTA: No acute finding. No thoracic aortic aneurysm or dissection evident LUNGS: Underlying emphysematous changes again evident. With 4 cm bleb at the lingula anteriorly No new infiltrate or consolidation Small 5.5 mm nodule left apex has not changed since July 2019, nor June 2016 confirming benign nodule . No other nodular densities of note are identified 1 some minor pleural thickening at the left lung base related to scarring at lingula and posterior sulcus. Mild apical pleural scarring bilaterally stable. PLEURAL SPACES: No significant effusion. No evidence of pneumothorax. BONY STRUCTURES: No acute bony abnormalities apparent. T-spine intact.; no rib fractures or lesions. LYMPH NODES: No enlarged lymph nodes evident. UPPER ABDOMEN: Cholecystectomy ADDITIONAL FINDINGS: Of there is a a central venous catheter/Port-A-Cath overlying the upper right chest extending into the SVC. Thyroid. Normal size but there are some low-density areas at the right thyroid likely reflecting nodules IMPRESSION: 1.. No new findings//no active disease in the chest. 2. Longstanding emphysema/COPD 3..The 5.5 mm lung nodule at the left apex-longstanding stability supports benign nature Other observations: 4.. Small right thyroid nodules incidentally noted . Small hiatal hernia noted The Dictated by: Aureliano Lee MD 11/21/2020 08:07 Aureliano Lee MD in [facility] 11/21/2020 08:07
[2020-11-20 15:00] VITALS: PULSE 83; PULSE 88
== END ==
PROVIDERS: PCP Family Medicine; Visit Provider Internal Medicine Pulmonary Disease
DX: R91.8 Other nonspecific abnormal finding of lung field; R06.09 Other forms of dyspnea
CPT/HCPCS: 71250; 94060; 94640; 94727; 94729

== ENCOUNTER 2021-06-17 00:11 | Observation (INO) | payer MEDICARE, MEDICAID, SELFPAY ==
[2021-06-17] VITALS (26 sets, daily range): BP systolic 136–190; BP diastolic 67–99; PULSE 70–106; RESP 16–22; TEMP 36.5–37.8; O2SAT 91–99; BMI 23.4; BMI 25.7
--- NOTE | 2021-06-17 00:45 | XR_ITS ---
PROCEDURE INFORMATION: Exam: XR Chest Exam date and time: 06/17/2021 12:45 AM Age: 71 years old Clinical indication: Prior surgery; Surgery date: 1-6 months; Patient HX: Cough, SOA, port from chemo-breast cancer, PT had lumpectomy TECHNIQUE: Imaging protocol: XR of the chest. Views: 1 view. COMPARISON: CT CHEST WO CON 11/20/2020 2:02 PM FINDINGS: Tubes, catheters and devices: A right infusion port is present. Lungs: Lung lucencies are noted bilaterally, compatible with emphysematous changes. Chronic lung markings bilaterally may relate to interstitial prominence and/or scarring. Bilateral streaky opacities noted, compatible with subsegmental atelectasis. No focal consolidation to suggest pneumonia. Lung hyperexpansion bilaterally compatible with COPD. Pleural spaces: Unremarkable. No pleural effusion. No pneumothorax. Heart/Mediastinum: Unremarkable. No cardiomegaly. Bones/joints: Unremarkable. IMPRESSION: 1. No acute findings. 2. Chronic changes as above.
[2021-06-17 00:52] LABS: Basophils % 0.3 % (0.1-2.0); Eosinophils # 0.2 K/mm3 (0.0-0.4); Eosinophils % 1.4 % (0.1-12.0); Hematocrit 40.8 % (37.0-47.0); Hemoglobin 12.1 g/dL (12.2-16.2); Lymphocytes % 7.6 % (10-50); Mean Corpuscular HGB Conc 29.7 g/dL (31.8-35.4); Mean Corpuscular Hemoglobin 26.8 pg (27.0-31.2); Mean Corpuscular Volume 90.3 fl (81-99); Mean Platelet Volume 6.8 fl (7.4-10.4); Monocytes # 0.7 K/mm3 (0.1-1.0); Monocytes % 4.9 % (1.7-9.3); Neutrophils # 11.3 K/mm3 (1.8-7.8); Neutrophils % 85.8 % (37.0-80.0); Platelet Count 275 K/mm3 (142-424); Red Blood Count 4.52 M/mm3 (4.20-5.40); Red Cell Distribution Width 13.6 % (11.5-17.5); White Blood Count 13.1 K/mm3 (4.8-10.8)
[2021-06-17 00:54] LABS: MANUAL DIFFERENTIAL MANUAL DIFFERENTIAL (MANUAL DIFF)
[2021-06-17 01:06] LABS: Chloride 103 mmol/L (98-107); Potassium 4.6 mmoL/L (3.5-5.1); Sodium 139 mmol/L (136-145)
[2021-06-17 01:08] LABS: Blood Urea Nitrogen 8 mg/dl (7-17); Creatinine Clearance Estimated 44 mL/min (50-200); Estimated Glomerular Filt Rate 82 ml/min (>60); GFR (African American) 100 ML/MIN (>60)
[2021-06-17 01:09] LABS: Alanine Aminotransferase 21 U/L (12-78); Albumin Level 4.3 g/dl (3.5-5.0); Albumin/Globulin Ratio 1.5 (1.1-1.8); Alkaline Phosphatase 61 U/L (38-126); Anion Gap 7.6 mEq/L (5-15); Aspartate Amino Transferase 34 U/L (14-36); Bilirubin,Total 0.6 mg/dl (0.2-1.3); Calcium 8.5 mg/dl (8.4-10.2); Carbon Dioxide 33 mmol/L (22.0-30.0); Globulin 2.9 g/dL (1.3-3.2); Glucose 178 mg/dl (74-100); Total Protein,Serum 7.2 g/dl (6.3-8.2)
[2021-06-17 01:20] LABS: Hypochromasia 3+; Lymphocytes % 13 % (10-50); Neutrophils % 82 % (42-76); Platelet Estimate Normal; Total Cells Counted 100
[2021-06-17 01:47] LABS: Creatine Kinase 43 U/L (30-135)
--- NOTE | 2021-06-17 02:35 | HMH.EDGENADL ---
ED Disposition Clinical Impression: Fall Qualifiers: Encounter type: initial encounter Qualified Code(s): W19.XXXA - Unspecified fall, initial encounter Acute bronchitis Qualifiers: Bronchitis organism: unspecified organism Qualified Code(s): J20.9 - Acute bronchitis, unspecified Disposition: Admitted as Observation Condition on Discharge: Fair - Critical Care Critical Care Time: No Attestation: On 06/17/21, the high probability of a clinically significant, sudden or life threatening deterioration of the following system(s) required my full and direct attention, intervention and personal management. The time I documented below is in addition to time spent performing reported procedures but includes the following listed in this critical care notation. Medical Decision Making - Medical Records Medical records reviewed: Yes: I reviewed the patient's medical records. MR Comment: Reviewed recent medications, filled prescriptions for Levaquin and Medrol Dosepak on 05/27/2021. Patient denies being on antibiotics since Levaquin was finished. - Cy Inquiry Pt receiving controlled substance: No Cy was queried for this patient: Yes Vital Signs: 06/17/21 00:12 06/17/21 00:38 06/17/21 01:00 Temperature 100.1 F H Temperature Source Oral Pulse Rate 94 H 94 H Pulse Rate [Left] 95 H Respiratory Rate 20 Blood Pressure 167/72 H 182/81 H Blood Pressure [Left Arm] 177/72 H Blood Pressure Mean Blood Pressure Mean [Left Arm] 107 Blood Pressure Source Automatic Cuff Blood Pressure Source [Left Arm] Automatic Cuff Blood Pressure Position Supine Blood Pressure Position [Left Arm] Supine 02 Sat by Pulse Oximetry 94 L 99 Oxygen Delivery Method Nasal Cannula Nasal Cannula Oxygen Flow Rate (LPM) 2 2 06/17/21 01:30 06/17/21 02:00 06/17/21 02:30 Temperature Temperature Source Pulse Rate 96 H 96 H 95 H Pulse Rate [Left] Respiratory Rate Blood Pressure 170/68 H 161/73 H 179/78 H Blood Pressure [Left Arm] Blood Pressure Mean 108 102 96 Blood Pressure Mean [Left Arm] Blood Pressure Source Blood Pressure Source [Left Arm] Blood Pressure Position Supine Supine Blood Pressure Position [Left Arm] 02 Sat by Pulse Oximetry 97 97 97 Oxygen Delivery Method Nasal Cannula Oxygen Flow Rate (LPM) 2 2 06/17/21 03:00 06/17/21 03:03 06/17/21 03:30 Temperature Temperature Source Pulse Rate 97 H 100 H 99 H Pulse Rate [Left] Respiratory Rate Blood Pressure 141/86 H 141/86 H 167/82 H Blood Pressure [Left Arm] Blood Pressure Mean 104 98 Blood Pressure Mean [Left Arm] Blood Pressure Source Blood Pressure Source [Left Arm] Blood Pressure Position Supine Blood Pressure Position [Left Arm] 02 Sat by Pulse Oximetry 98 95 97 Oxygen Delivery Method Room Air Oxygen Flow Rate (LPM) 06/17/21 04:00 Temperature Temperature Source Pulse Rate 104 H Pulse Rate [Left] Respiratory Rate Blood Pressure 167/82 H Blood Pressure [Left Arm] Blood Pressure Mean Blood Pressure Mean [Left Arm] Blood Pressure Source Blood Pressure Source [Left Arm] Blood Pressure Position Supine Blood Pressure Position [Left Arm] 02 Sat by Pulse Oximetry 96 Oxygen Delivery Method Nasal Cannula Oxygen Flow Rate (LPM) 2 - Lab Data Lab Results 06/17/21 00:24: WBC 13.1 H, RBC 4.52, Hgb 12.1 L, Hct 40.8, MCV 90.3, MCH 26.8 L, MCHC 29.7 L, RDW 13.6, Plt Count 275, MPV 6.8 L, Neut % (Auto) 85.8 H, Lymph % (Auto) 7.6 L, Tillman % (Auto) 4.9, Eos % (Auto) 1.4, Baso % (Auto) 0.3, Neut # (Auto) 11.3 H, Lymph # (Auto) 1.0, Tillman # (Auto) 0.7, Eos # (Auto) 0.2, Baso # (Auto) 0.0, Total Counted 100, Neutrophils % (Manual) 82 H, Band Neutrophils % 5.0, Lymphocytes % (Manual) 13, Platelet Estimate Normal, Hypochromasia 3+ 06/17/21 00:24: Sodium 139, Potassium 4.6, Chloride 103, Carbon Dioxide 33 H, Anion Gap 7.6, BUN 8, Creatinine 0.70, Estimated Creat Clear 44, Estimated GFR 82, Es
[2021-06-17 03:05] LABS: Coronavirus 19, PCR Not Detected (NotDetected); Influenza A, PCR Not Detected (NotDetected); Influenza B, PCR Not Detected (NotDetected); Microscopic, Urine URINE MICROSCOPIC (MICROSCOPIC)
[2021-06-17 03:15] LABS: Appearance,Urine CLEAR (Clear); Bilirubin,Urine Negative (Negative); Blood, Urine Negative (Negative); Color,Urine YELLOW (Yellow); Glucose,Urine (UA) Negative (Negative); Ketones,Urine Negative (Negative); Leukocyte Esterase,Urine Negative (Negative); Nitrate,Urine Negative (Negative); Protein,Urine Negative (Negative); Specific Gravity, Urine >= 1.030 (1.005-1.030); Urobilinogen,Urine 0.2 EU/dl (0.2)
[2021-06-17 03:18] LABS: Amorphous Sediment,Urine Trace /lpf; WBC,Urine Occasional #/hpf (0-3)
--- NOTE | 2021-06-17 04:01 | PC.NURSE ---
prasanna carreon on phone with dr patel
--- NOTE | 2021-06-17 04:10 | PC.NURSE ---
Pt has been admitted, no Floor beds available and pt will be an ER boarder.
--- NOTE | 2021-06-17 05:11 | PC.NURSE ---
Pt is visiting with family at bedside, no c/o at this time.
--- NOTE | 2021-06-17 06:06 | PC.NURSE ---
pt resting voiced no c/o @ this time. call light within reach
--- NOTE | 2021-06-17 07:03 | PC.NURSE ---
report given to Jaclyn Kerns. pt voiced no c/o @ this time
--- NOTE | 2021-06-17 07:08 | PC.NURSE ---
called dietary to request a regular breakfast tray @ this time
--- NOTE | 2021-06-17 07:50 | PC.NURSE ---
attempted to call report, nurse will have to elda back
--- NOTE | 2021-06-17 08:13 | PC.NURSE ---
report called to floor
--- NOTE | 2021-06-17 08:17 | PC.NURSE ---
pt return to room from bathroom sob.
--- NOTE | 2021-06-17 08:44 | HMH.PHAINT ---
MEDICATION RECONCILIATION COMPLETED USING LIST FROM DR ONTIVEROS'S OFFICE AND PHARMACY FILL HISTORY.
--- NOTE | 2021-06-17 08:53 | P.CONPHA_ITS ---
[facility] Pharmacy VTE Monitoring - Patient Demographics Admission date: 06/17/21 Report Date: 06/17/21 Time: 08:54 Allergies/Adverse Reactions: Patient Allergies benzonatate Allergy (Mild, Verified 11/29/20 13:27) SWELLING pneumococcal vaccine Allergy (Mild, Verified 11/29/20 13:27) ITCHING,TISSUE NECROSIS pork derived (porcine) Allergy (Unknown, Verified 11/29/20 13:27) Nausea Pork/Porcine Containing Products Allergy (Unknown, Verified 11/29/20 13:27) Nausea Height: 1.52 m Weight: 54.431 kg Patient Problems: Current Active Problems Fall (Acute) Acute bronchitis (Acute) - VTE Risk Labs: VTE Related Lab Results Hgb 12.1 g/dL (12.2-16.2) L 06/17/21 00:24 Hct 40.8 % (37.0-47.0) 06/17/21 00:24 Plt Count 275 K/mm3 (142-424) 06/17/21 00:24 BUN 8 mg/dl (7-17) 06/17/21 00:24 Creatinine 0.70 mg/dl (0.52-1.04) 06/17/21 00:24 Estimated Creat Clear 44 mL/min (50-200) 06/17/21 00:24 Clinical Trial Participant: No - Prophylaxis VTE Prophylaxis Ordered?: Yes Types of VTE Prophylaxis: TEDS Knee High Location of Applied Device: Bilateral Lower Extremeties - VTE Diagnosis Confirmed Treatment or plan recommended: Continue Current Treatment
--- NOTE | 2021-06-17 09:10 | HMH.HP ---
*Admission Date: 06/17/21 *Chief complaint: Cough and shortness of breath *History of present illness: Ms. Bo is a 71-year-old female with a history of oxygen dependent COPD, arthritis, asthma, fibromyalgia, anxiety with panic attacks, hypertension, lung nodule followed by pulmonology, [place], and breast cancer who presented to [facility] emergency room after progressive decline over the past 2 days. She states she has had a productive cough of brown sputum along with shortness of breath. She uses her oxygen continuously at home. She has been very weak and developed a fever. She also noted that she fell last night and laid on the floor for about 4 hours. She states she felt dizzy and fell. She denies any injuries from this although she is noted to have dressings on her right arm following abrasions from the fall. Patient was evaluated in the emergency room and felt to have acute bronchitis. Blood chemistries show normal potassium and sodium and renal function. Blood sugar was 178. Liver function studies were all normal. She was admitted for further evaluation and treatment. Patient is noted to have completed a course of Levaquin and a steroid pack started 05/27/2021. She states she did get better although the cough never did resolve. At time of exam patient continues with a congested cough. She states her breathing is better and she has no chest pain. She also states that she has not been eating or drinking very well at home. [facility] History Medical History: Reports:: Anxiety, Asthma, Cancer, Chronic Obstructive Pulmonary Disease (COPD), Gastroesophageal Reflux Disease(GERD), Hiatal Hernia, Home Oxygen, Hypertension, Lung Disease Denies:: Diabetes Mellitus Type 1, Diabetes Mellitus Type 2, Internal Pacemaker, MRSA, Seizures *Have you ever received a pneumonia vaccine?: Yes *Have you received a flu vaccine this season?: Yes Other Medical History: Reports: Anemia, Arthritis, Chemotherapy, Fibromyalgia. Denies: Blood Transfusion Reaction Laterality Cases: Left: Breast Biopsy, Lumpectomy Other Surgeries: Yes: Appendectomy, Colonoscopy, , Hysterectomy-Total, Other (Bladder surgery). No: Pacemaker Amputation: No Fractures: No Comment: Cervical disc surgery 1986; breast biopsy and lumpectomy of the left breast in 2019 - *Social History Smoking Status: Former smoker Tobacco Type: cigarettes # Packs/Day (cigarettes): 1 #Yrs smoked (if former smoker): 36 Alcohol Intake: never *Occupational Status:: retired, other Housing: house Household Members: spouse *Travel in the last 8 weeks: None - Psychiatric History Pschychiatric History:: Reports:: Anxiety Family Hx:: Cancer, Coronary Artery Disease, Hypertension, Stroke Review of Systems - Constitutional Reports fatigue, Reports fever(s), Reports lack of energy - Eyes Denies change in vision Comments: Wears glasses - ENT Reports dizziness, Denies ear pain, Denies sore throat - *Cardiovascular Reports shortness of breath, Denies chest pain, Denies leg swelling - *Respiratory Reports chest congestion, Reports cough, Reports shortness of breath, Denies coughing up blood - *Gastrointestinal Denies abdominal pain, Denies constipation, Denies loose stools, Denies bright, red blood in stools, Denies black, tarry stools, Denies nausea, Denies vomiting - *Genitourinary Reports urinary incontinence, Denies blood in urine - *Musculoskeletal Denies abnormal walking Comments: Had a recent fall at which time she laid in the floor she thinks for about 4 hours. - *Neurologic Reports dizziness, Reports frequent falls, Denies seizure-like activity, Denies localized weakness, Denies headache(s), Denies numbness - Psychiatric Reports anxiety Meds Home Medications Medication Instructions Recorded Confirmed Type ALPRAZolam [Alprazolam Odt] 0.5 mg PO BIDP PRN #60 tab 08/16/19 06/17/21 Rx Cetirizine HCl [Allergy Relief] 10 mg PO HS #30 cap 08/16/1906/17
--- NOTE | 2021-06-17 10:46 | SW/DCPLANNER ---
Addendum entered by Hannah Banegas 06/20/21 12:46: Elaine has stated that she has forwarded this referral to [facility]. Ekaterina Yeung has called and stated services will begin tomorrow for this patient. Patient will discharge home today. Addendum entered by Hannah Banegas 06/20/21 09:48: Patient information/order will be faxed to [facility] for home health services. I will follow up with Elaine from [facility] once patient information is reviewed. Addendum entered by Hannah Banegas 06/17/21 13:35: I spoke with patients daughter (Susan Ramos [phone]) in room with patient this afternoon. Daughter and patient stated that patients brother and nephew resides in the house with patient and her . Daughter/patient are working towards an eviction notice for brother and have an EPO against nephew because they do not want them in the home. Daughter has also started paperwork for in home services from [facility] along with patient[facility]. Patient and daughter also want home health services at time of discharge. Discharge date is unknown at this time. Original Note: I received a call from Layo with [facility] asking for patient information: daughters are at [facility] trying to get in home services for this patient. I spoke with patient and she was agreeable for me to give information to Layo. I will speak with patient regarding home health services at time of discharge. Layo stated that daughters have recently made a Central Intake report and have spoke with [facility] office regarding an EPO on family members that reside in home. I will continue to follow up with this patient until medically stable for discharge. Discharge date is unknown at this time.
--- NOTE | 2021-06-17 17:17 | PC.NURSE ---
Patient is alert and oriented x4. Lungs with wheezes. She remains on 2L NC w/ O2 sats in the upper 90's. She has used a bsc w/assist x1. She had 1 loose stool this shift. She has multiple skin tears to bilateral arms. Dressings in place. Small scabbing noted to BLE. Pt's daughter came to visit earlier and requested patient be opted off census, pt did not object so she was taken off the census. She later wanted to rescind that so she was placed back on the census per patients wishes. She wants to talk to her before setting up a password.
[2021-06-18] VITALS (9 sets, daily range): BP systolic 139–175; BP diastolic 63–83; PULSE 68–83; RESP 16–19; TEMP 36.6–36.8; O2SAT 97–99; BMI 26.1
--- NOTE | 2021-06-18 03:53 | PC.NURSE ---
No acute changes overnight. Pt A&O. Lungs note wheezing throughout, on 2L NC. Pt able to ambulate to BSC with 1 assist. Has had 2 loose bowel movements. IV patent, on NS 100. able to make needs known to staff. VSS, call light in reach, no concerns at this time.
--- NOTE | 2021-06-18 08:18 | HMH.ACPN2 ---
Internal Medicine - PN: Subj *Date: 06/18/21 *Time: 08:18 Interval history: Patient feels better this morning. She did sleep some last night. Shortness of breath has greatly improved with minimal cough. She denies chest pain. She is eating without problems. She has been up to the bedside commode with help. She is voiding QS. She had 2 diarrhea stools yesterday and none during the night. Exam Vital signs and Labs for Last 24 Hours: Temp Pulse Resp BP Pulse Ox 97.9 F 71 18 153/65 H 98 06/18/21 03:55 06/18/21 06:35 06/18/21 03:55 06/18/21 03:55 06/18/21 06:35 I & O for Last 24 hours: Intake & Output 06/15/21 06/16/21 06/17/21 06/18/21 11:59 11:59 11:59 11:59 Intake Total 1187 / 1187 Balance 1187 / 1187 Weight 123 lb 124 lb 7 oz - Constitutional no acute distress Comments: Awake and alert and appears comfortable. Speaks without dyspnea - *Routine Respiratory Exam Present: crackles (Few bilateral basilar crackles) Comments: Rare expiratory wheeze - *Routine Cardiovascular Exam Present: RRR - *Routine Abdominal Exam Present: soft, normoactive bowel sounds. Absent: tenderness - *Routine Extremities Exam Absent: edema, calf tenderness - *Routine Skin Exam Present: ecchymosis (Scattered on bilateral arms) - *Routine Neurological Exam Present: alert, oriented X3 Assessment and Plan (1) Asthmatic bronchitis with acute exacerbation Status: Acute Category: Medical Code(s): J45.901 - Unspecified asthma with (acute) exacerbation (2) History of breast cancer Status: Acute Category: Medical Code(s): Z85.3 - Personal history of malignant neoplasm of breast (3) Acute bronchitis Status: Acute Qualifiers: Bronchitis organism: unspecified organism Qualified Code(s): J20.9 - Acute bronchitis, unspecified Category: Medical Code(s): J20.9 - Acute bronchitis, unspecified (4) Fall Status: Acute Qualifiers: Encounter type: initial encounter Qualified Code(s): W19.XXXA - Unspecified fall, initial encounter Category: Medical Code(s): W19.XXXA - Unspecified fall, initial encounter (5) Debility Status: Acute Category: Medical Code(s): R53.81 - Other malaise (6) Anxiety Status: Chronic Category: Medical Code(s): F41.9 - Anxiety disorder, unspecified (7) COPD (chronic obstructive pulmonary disease) Status: Chronic Qualifiers: COPD type: emphysema Emphysema type: unspecified Qualified Code(s): J43.9 - Emphysema, unspecified Category: Medical Code(s): J44.9 - Chronic obstructive pulmonary disease, unspecified (8) GERD (gastroesophageal reflux disease) Status: Chronic Category: Medical Code(s): K21.9 - Gastro-esophageal reflux disease without esophagitis - Assessment and plan all Dx Assessment and Plan for all problems:: Continue with antibiotics, duo nebs, and steroids. Will saline lock IV. Repeat labs in the a.m. encouraged out of bed to chair with help today.
--- NOTE | 2021-06-18 08:25 | PC.NURSE ---
Pt instructed on induction of sputum but patient unable to produce. Specimen cup left at bedside.
--- NOTE | 2021-06-18 14:30 | PC.NURSE ---
SPUTUM INDUCTION: PT COULD NOT COUGH UP SAMPLE AT THIS TIME. SALINE NEB GIVEN AND PT ENCOURAGED TO COUGH. CUP LEFT AT BEDSIDE.
--- NOTE | 2021-06-18 18:34 | PC.NURSE ---
Pt is alert and oriented x4. She is a standby assist to bsc. She reported a headache today that was treated w/tylenol. Relief noted on reassessment. She was up to the chair for a while in the afternoon and tolerated well. No change from morning assessment.
[2021-06-19] VITALS (11 sets, daily range): BP systolic 136–186; BP diastolic 69–89; PULSE 68–86; RESP 18–22; TEMP 36.4–36.8; O2SAT 96–98; BMI 26.4
--- NOTE | 2021-06-19 05:10 | PC.NURSE ---
This RN received report from Rusty Dickinson RN at around midnight. Patient is alert and oriented x4. She ambulated per standby assist to the bedside commode. Patient has been pleasant during the night and rested well. Vital signs stable, will continue to monitor, call light within reach.
[2021-06-19 06:20] LABS: Eosinophils # 0.1 K/mm3 (0.0-0.4); Eosinophils % 0.4 % (0.1-12.0); Hematocrit 35.4 % (37.0-47.0); Hemoglobin 11.4 g/dL (12.2-16.2); Lymphocytes # 0.5 K/mm3 (0.7-4.5); Lymphocytes % 3.5 % (10-50); Mean Corpuscular HGB Conc 32.3 g/dL (31.8-35.4); Mean Corpuscular Hemoglobin 27.4 pg (27.0-31.2); Mean Corpuscular Volume 84.7 fl (81-99); Mean Platelet Volume 7.3 fl (7.4-10.4); Monocytes # 0.2 K/mm3 (0.1-1.0); Monocytes % 1.4 % (1.7-9.3); Neutrophils % 94.8 % (37.0-80.0); Platelet Count 211 K/mm3 (142-424); Red Blood Count 4.18 M/mm3 (4.20-5.40); Red Cell Distribution Width 14.1 % (11.5-17.5); White Blood Count 13.7 K/mm3 (4.8-10.8)
[2021-06-19 06:35] LABS: Anion Gap 10.6 mEq/L (5-15); Blood Urea Nitrogen 10 mg/dl (7-17); Calcium 8.3 mg/dl (8.4-10.2); Carbon Dioxide 27 mmol/L (22.0-30.0); Chloride 104 mmol/L (98-107); Creatinine Clearance Estimated 46 mL/min (50-200); Estimated Glomerular Filt Rate 98 ml/min (>60); GFR (African American) 119 ML/MIN (>60); Glucose 123 mg/dl (74-100); Potassium 3.6 mmoL/L (3.5-5.1); Sodium 138 mmol/L (136-145)
[2021-06-19 06:44] LABS: MANUAL DIFFERENTIAL MANUAL DIFFERENTIAL (MANUAL DIFF)
[2021-06-19 07:49] LABS: Lymphocytes % 3 % (10-50); Monocytes % 1 % (2-9); Neutrophils % 96 % (42-76); Platelet Estimate Normal; RBC Morphology Normal; Total Cells Counted 100
--- NOTE | 2021-06-19 07:49 | HMH.ACPN2 ---
Internal Medicine - PN: Subj *Date: 06/19/21 *Time: 07:49 Interval history: Patient states she did sleep well last night. She continues with a cough which is about the same. She feels her shortness of breath is at baseline. She denies chest pain. She did sit up in a chair yesterday without problems. She is eating without difficulty. She states she is voiding QS. Laboratory data this a.m. reveals white blood cell count at 13,700 with a hemoglobin of 11.4 and hematocrit of 35.4. Blood chemistry will normal electrolytes and renal function. Exam Vital signs and Labs for Last 24 Hours: Temp Pulse Resp BP Pulse Ox 98.2 F 73 18 186/74 H 97 06/19/21 03:46 06/19/21 06:47 06/19/21 03:46 06/19/21 03:46 06/19/21 06:47 Laboratory Results - last 24 hr 06/19/21 05:58: WBC 13.7 H, RBC 4.18 L, Hgb 11.4 L, Hct 35.4 L, MCV 84.7, MCH 27.4, MCHC 32.3, RDW 14.1, Plt Count 211, MPV 7.3 L, Neut % (Auto) 94.8 H, Lymph % (Auto) 3.5 L, Ceiba % (Auto) 1.4 L, Eos % (Auto) 0.4, Baso % (Auto) 0.0 L, Neut # (Auto) 13.0 H, Lymph # (Auto) 0.5 L, Ceiba # (Auto) 0.2, Eos # (Auto) 0.1, Baso # (Auto) 0.0 06/19/21 05:58: Sodium 138, Potassium 3.6 D, Chloride 104, Carbon Dioxide 27, Anion Gap 10.6, BUN 10, Creatinine 0.60, Estimated Creat Clear 46, Estimated GFR 98, Est GFR ( Amer) 119, Glucose 123 H, Calcium 8.3 L I & O for Last 24 hours: Intake & Output 06/16/21 06/17/21 06/18/21 06/19/21 11:59 11:59 11:59 11:59 Intake Total 3013 / 3013 1260 / 1260 Output Total 675 / 675 Balance 3013 / 3013 585 / 585 Weight 123 lb 124 lb 7 oz 126 lb 1 oz Microbiology Reports for the Last 24 Hours: Microbiology 06/17/21 00:24 Blood Blood Culture - Preliminary NO GROWTH AFTER 48 HOURS 06/17/21 00:24 Blood Blood Culture - Preliminary NO GROWTH AFTER 48 HOURS - Constitutional no acute distress Comments: Sitting up in the bed eating her breakfast - *Routine Respiratory Exam Present: wheezes (Rare), crackles (Greater on the right posteriorly) - *Routine Cardiovascular Exam Present: RRR - *Routine Abdominal Exam Present: soft, normoactive bowel sounds. Absent: tenderness, distended - *Routine Extremities Exam Absent: edema, calf tenderness - *Routine Neurological Exam Present: alert, oriented X3 Assessment and Plan (1) Asthmatic bronchitis with acute exacerbation Status: Acute Category: Medical Code(s): J45.901 - Unspecified asthma with (acute) exacerbation (2) History of breast cancer Status: Acute Category: Medical Code(s): Z85.3 - Personal history of malignant neoplasm of breast (3) Acute bronchitis Status: Acute Qualifiers: Bronchitis organism: unspecified organism Qualified Code(s): J20.9 - Acute bronchitis, unspecified Category: Medical Code(s): J20.9 - Acute bronchitis, unspecified (4) Fall Status: Acute Qualifiers: Encounter type: initial encounter Qualified Code(s): W19.XXXA - Unspecified fall, initial encounter Category: Medical Code(s): W19.XXXA - Unspecified fall, initial encounter (5) Debility Status: Acute Category: Medical Code(s): R53.81 - Other malaise (6) Anxiety Status: Chronic Category: Medical Code(s): F41.9 - Anxiety disorder, unspecified (7) COPD (chronic obstructive pulmonary disease) Status: Chronic Qualifiers: COPD type: emphysema Emphysema type: unspecified Qualified Code(s): J43.9 - Emphysema, unspecified Category: Medical Code(s): J44.9 - Chronic obstructive pulmonary disease, unspecified (8) GERD (gastroesophageal reflux disease) Status: Chronic Category: Medical Code(s): K21.9 - Gastro-esophageal reflux disease without esophagitis - Assessment and plan all Dx Assessment and Plan for all problems:: Right blood cell count remains elevated probably due to steroids. Will repeat chest x-ray this morning. Will consult PT O
--- NOTE | 2021-06-19 07:54 | XR_ITS ---
PROCEDURE: XR CHEST 2V CLINICAL HISTORY: Acute asthmatic bronchitis with persistent cough. COMPARISON: CR XR CHEST 2V from 08/10/2019 CR XR CHEST PORTABLE from 08/13/[address] CHEST WO CON from 11/20/2020 CR XR CHEST PORTABLE from 06/17/2021 FINDINGS: Unremarkable cardiovascular structures. COPD changes. Right IJ MediPort catheter is present with the tip in the region the SVC. There is blunting of the left CP angle suggesting small left effusion. No lobar consolidation or collapse. No acute bony abnormalities. IMPRESSION: COPD changes with small left effusion Dictated by: Uriel Wilson MD 06/19/2021 11:28 Uriel Wilson MD in [place] 06/19/2021 11:28
--- NOTE | 2021-06-19 09:42 | HMH.PTEV ---
Physical Therapy Evaluation Rehab PT IP Evaluation Start: 06/19/21 07:54 Freq: ONCE Status: Active Protocol: Document 06/19/21 09:40 ALISSON (Rec: 06/19/21 09:42 [email or web address] [id number]) Subjective/History History History Pt is 71 yowf adm to [facility] with bronchitis and weakness. She reports she is independent with all mobility at baseline and lives with at home . Subjective Subjective Pt with no c/o this am. Rehab PT IP Eval Objective Appearance Patient Behavior Appropriate Patient Orientation Person,Place,Time Difficulty following instructions none Speech Pattern Clear Ambulation Patient Able to Ambulate Yes Ambulation Observation IP General Gait Pattern Observation No Deviations/Normal Ambulation Distance (feet) 30 Ambulation Assistive Device None Ambulation Ability Supervision/Stand by Balance Ability to Arise Able, uses arms to help Sitting Balance Steady, safe Standing Balance Steady, wide stance Dynamic Sitting Balance Ability Good Dynamic Standing Balance Ability Good Transfers Bed Transfer Ability Supervision/Stand by Chair Transfer Ability Supervision/Stand by Sit to Stand Bed Transfer Ability Supervision/Stand by Sit to Stand Chair Transfer Ability Supervision/Stand by ROM All Extremities PT ROM Status WFL MMT All Extremities PT MMT WFL Rehab PT IP prob,goals,plan Problems Date of Evaluation: 06/19/21 Discharge Plan PT Discharge Plan Pt is appropriate to return home once medically stable. Recommend Home Health therapy upon d/c. G -code Required No Eval Complexity Eval Charge Codes 67302 - Moderate Complexity PHYSICIAN CERTIFICATION: I certify the specified therapy services for Linda Chappell are required, authorized, and reviewed every 30 days.
--- NOTE | 2021-06-19 10:47 | HMH.OTEV ---
OT Inpatient Evaluation Rehab OT IP Evaluation Start: 06/19/21 07:54 Freq: ONCE Status: Complete Protocol: Document 06/19/21 10:21 LEILA (Rec: 06/19/21 10:27 LEILA [id number]) Rehab OT IP Assessment Subjective History *Admission Date: 06/17/21 *Chief complaint: Cough and shortness of breath *History of present illness: Ms. Bo is a 71-year-old female with a history of oxygen dependent COPD, arthritis, asthma, fibromyalgia, anxiety with panic attacks, hypertension, lung nodule followed by pulmonology, Chetan, and breast cancer who presented to [facility] emergency room after progressive decline over the past 2 days. She states she has had a productive cough of brown sputum along with shortness of breath. She uses her oxygen continuously at home. She has been very weak and developed a fever. She also noted that she fell last night and laid on the floor for about 4 hours. She states she felt dizzy and fell. She denies any injuries from this although she is noted to have dressings on her right arm following abrasions from the fall. Patient was evaluated in the emergency room and felt to have acute bronchitis. Blood chemistries show normal potassium and sodium and renal function. Blood sugar was 178. Liver function studies were all normal. She was admitted for further evaluation and treatment. Patient is noted to have completed a course of Levaquin and a steroid pack started 05/27/2021. She states she did get better a
--- NOTE | 2021-06-19 14:02 | HMH.PULMCON ---
*Admission Date: 06/17/21 *Reason for consult:: COPD exacerbation *History of present illness: Ms. Chappell is 71-year-old male prior history of breast cancer: Pulmonary, COPD exacerbation admitted to the hospital with worsening respiratory failure and cough and productive phlegm. Patient was admitted to the hospital for further management and pulmonary was consulted. [facility] History Medical History: Reports:: Anxiety, Asthma, Cancer (2018), Chronic Obstructive Pulmonary Disease (COPD), Gastroesophageal Reflux Disease(GERD), Hiatal Hernia, Home Oxygen, Hypertension, Lung Disease Denies:: Diabetes Mellitus Type 1, Diabetes Mellitus Type 2, Internal Pacemaker, MRSA, Seizures *Have you ever received a pneumonia vaccine?: Yes *Have you received a flu vaccine this season?: Yes Other Medical History: Reports: Anemia, Arthritis, Chemotherapy, Fibromyalgia. Denies: Blood Transfusion Reaction Laterality Cases: Left: Breast Biopsy, Lumpectomy Other Surgeries: Yes: Appendectomy, Colonoscopy, , Hysterectomy-Total, Other (Bladder surgery). No: Pacemaker Amputation: No Fractures: No - *Social History Last grade of school completed: 9th or 10th Smoking Status: Former smoker Tobacco Type: cigarettes # Packs/Day (cigarettes): 1 #Yrs smoked (if former smoker): 36 Alcohol Intake: never *Occupational Status:: retired Housing: house Household Members: spouse *Travel in the last 8 weeks: None - Psychiatric History Pschychiatric History:: Reports:: Anxiety Family Hx:: Cancer, Coronary Artery Disease, Hypertension, Stroke ROS - Cons Denies anorexia, Denies body ache(s), Denies chills - Card Reports shortness of breath, Reports shortness of breath with activity - Resp Respiratory: Reports system reviewed and no additional complaints, except as docu, Denies change in phlegm color, Reports chest congestion, Reports excessive phlegm production - GI Gastrointestingal: Denies: abdominal pain - [place] Musculoskeletal: Reports back pain Meds Home Medications Medication Instructions Recorded Confirmed Type ALPRAZolam [Alprazolam Odt] 0.5 mg PO BIDP PRN #60 tab 08/16/19 06/17/21 Rx Cetirizine HCl [Allergy Relief] 10 mg PO HS #30 cap 08/16/19 06/17/21 Rx Esomeprazole Magnesium [Nexium] 40 mg PO DAILY #30 suspdr.pkt 08/16/19 06/17/21 Rx Metoprolol Succinate [Toprol XL 50 mg PO BID #60 tab 08/16/19 06/17/21 Rx 50mg Tablet] Montelukast Sodium [Montelukast 10 mg PO HS #30 tab 08/16/19 06/17/21 Rx 10mg Tab] Verapamil HCl 120 mg PO BID #60 tab 08/16/19 06/17/21 Rx budesonide-formoterol HFA 160 2 puff INHALATION BID g 09/25/20 06/17/21 History mcg-4.5 mcg/actuation aerosol inhaler gabapentin 300 mg capsule 600 mg PO BID cap 09/25/20 06/17/21 History Albuterol Sulfate [Albuterol 2.5 mg IH Q4HP PRN 06/17/21 06/17/21 History 0.083% 2.5mg/3mL neb] Albuterol Sulfate [Albuterol 2.5 mg IH Q6H 06/17/21 06/17/21 History 0.083% 2.5mg/3mL neb] Fluticasone Propionate 1 spray INTRANASAL DAILY 06/17/21 06/17/21 History Sertraline HCl [Zoloft 100mg 150 mg PO DAILY 06/17/21 06/17/21 History tablet] Tiotropium [place] [Spiriva 2 inh INHALATION DAILY 06/17/21 06/17/21 History Respimat] Tramadol HCl [Tramadol 50mg 50 mg PO BID 06/17/21 06/17/21 History Tab] Allergies Allergy/AdvReac Type Severity Reaction Status Date / Time benzonatate Allergy Mild SWELLING Verified 11/29/20 13:27 pneumococcal vaccine Allergy Mild ITCHING,TISSUE Verified 11/29/20 13:27 NECROSIS pork derived (porcine) Allergy Unknown Nausea Verified 11/29/20 13:27 Pork/Porcine Containing Allergy Unknown Nausea Verified 11/29/20 13:27 Products Exam - Constitutional Constitutional:: Present: no acute distress, comfortable - HENMT Exam HENMT: Present: normocephalic, atraumatic - Eye Exam Eyes:: Present: normal appearance both eyes and related structures - Neck Exam Neck:: Present: normal visual inspection - Respirato
--- NOTE | 2021-06-19 16:19 | PC.NURSE ---
IS @ best = 750
--- NOTE | 2021-06-19 16:27 | PC.NURSE ---
No acute changes. Pt has requested to remain on 2 L O2 per nasal cannula this shift, d/t feeling SOA. She ambulates standby assist to BSC, tolerates well. No complaints this shift. Currently lying in bed. Call mechelle w/in reach.
--- NOTE | 2021-06-19 18:28 | PC.NURSE ---
RA SATS 90%. RETURN PT TO 2L N/C
[2021-06-20] VITALS: BP 132/64; PULSE 74; RESP 17; TEMP 36.6; O2SAT 94
[2021-06-20 04:00] VITALS: BP 166/56; PULSE 66; RESP 19; TEMP 36.6; O2SAT 96
--- NOTE | 2021-06-20 04:18 | PC.NURSE ---
pt alert and oriented. no complaints this shift. vss. call light in reach. will continue to monitor
[2021-06-20 05:00] VITALS: BMI 26.4
[2021-06-20 06:07] VITALS: PULSE 62; PULSE 64
[2021-06-20 08:05] VITALS: BP 186/87; PULSE 72
--- NOTE | 2021-06-20 08:10 | PC.NURSE ---
IS @ best = 750
--- NOTE | 2021-06-20 08:52 | HMH.ACPN2 ---
<Ann Galvan - Last Filed: 06/20/21 08:52> Internal Medicine - PN: Subj *Date: 06/20/21 *Time: 08:52 Interval history: Patient is feeling a bit better today. She states she is still short of breath but it has improved. She denies any chest pain. She was unable to rest well last night and is anxious to go home today. She was seen in consultation by pulmonology and he wanted to change her antibiotics to Levaquin, continue her steroids, and continue the DuoNeb's. Exam Vital signs and Labs for Last 24 Hours: Temp Pulse Resp BP Pulse Ox 97.9 F 72 19 186/87 H 96 06/20/21 04:00 06/20/21 08:05 06/20/21 04:00 06/20/21 08:05 06/20/21 04:00 I & O for Last 24 hours: Intake & Output 06/17/21 06/18/21 06/19/21 06/20/21 11:59 11:59 11:59 11:59 Intake Total 3013 / 3013 1380 / 1380 520 / 520 Output Total 675 / 675 600 / 600 Balance 3013 / 3013 705 / 705 -80 / -80 Weight 123 lb 124 lb 7 oz 126 lb 1 oz 125 lb 11.2 oz - Constitutional no acute distress - *Routine Neck Exam Present: supple. Absent: lymphadenopathy - *Routine Respiratory Exam Present: decreased breath sounds. Absent: wheezes - *Routine Cardiovascular Exam Present: RRR - *Routine Abdominal Exam Present: soft, normoactive bowel sounds. Absent: tenderness - *Routine Extremities Exam Absent: cyanosis, clubbing, edema - *Routine Skin Exam Present: warm. Absent: rash - *Routine Neurological Exam Present: alert, oriented X3 Assessment and Plan (1) Asthmatic bronchitis with acute exacerbation Status: Acute Category: Medical Code(s): J45.901 - Unspecified asthma with (acute) exacerbation (2) History of breast cancer Status: Acute Category: Medical Code(s): Z85.3 - Personal history of malignant neoplasm of breast (3) Acute bronchitis Status: Acute Qualifiers: Bronchitis organism: unspecified organism Qualified Code(s): J20.9 - Acute bronchitis, unspecified Category: Medical Code(s): J20.9 - Acute bronchitis, unspecified (4) Fall Status: Acute Qualifiers: Encounter type: initial encounter Qualified Code(s): W19.XXXA - Unspecified fall, initial encounter Category: Medical Code(s): W19.XXXA - Unspecified fall, initial encounter (5) Debility Status: Acute Category: Medical Code(s): R53.81 - Other malaise (6) Anxiety Status: Chronic Category: Medical Code(s): F41.9 - Anxiety disorder, unspecified (7) COPD (chronic obstructive pulmonary disease) Status: Chronic Qualifiers: COPD type: emphysema Emphysema type: unspecified Qualified Code(s): J43.9 - Emphysema, unspecified Category: Medical Code(s): J44.9 - Chronic obstructive pulmonary disease, unspecified (8) GERD (gastroesophageal reflux disease) Status: Chronic Category: Medical Code(s): K21.9 - Gastro-esophageal reflux disease without esophagitis - Assessment and plan all Dx Assessment and Plan for all problems:: Patient is stable to be discharged home today on Levaquin and steroids. She will follow-up with Dr. Land in the office. <Louie Land - Last Filed: 06/20/21 14:40> Internal Medicine - PN: Subj *Date: 06/20/21 *Time: 14:39 Exam Vital signs and Labs for Last 24 Hours: Temp Pulse Resp BP Pulse Ox 99 F 70 19 147/74 H 98 06/20/21 12:00 06/20/21 12:00 06/20/21 12:00 06/20/21 12:00 06/20/21 12:00 I & O for Last 24 hours: Intake & Output 06/18/21 06/19/21 06/20/21 06/21/21 11:59 11:59 11:59 11:59 Intake Total 3013 / 3013 1380 / 1380 760 / 760 120 / 120 Output Total 675 / 675 600 / 600 Balance 3013 / 3013 705 / 705 160 / 160 120 / 120 Weight 124 lb 7 oz 126 lb 1 oz 125 lb 11.2 oz Assessment and Plan (1) Asthmatic bronchitis with acute exacerbation Status: Acute Category: Medical Code(s): J45.901 - Unspecified asthma with (acute) exacerbation (2) History of breast cancer Status: Acute Category: Medical C
[2021-06-20 09:00] VITALS: BP 175/75; PULSE 73; RESP 19; TEMP 36.8; O2SAT 97
--- NOTE | 2021-06-20 10:18 | HMH.PULMPN ---
Internal Medicine - PN: Subj *Date: 06/20/21 *Time: 10:18 Interval history: No acute respiratory events overnight. Patient continued to improve. Exam - Constitutional Constitutional:: Present: no acute distress, comfortable - HENMT Exam HENMT: Present: normocephalic, moist mucous membranes - Eye Exam Eyes:: Present: normal appearance both eyes and related structures - Neck Exam Neck:: Present: normal visual inspection - Respiratory Exam Respiratory:: Present: able to speak in complete sentences, no respiratory distress. Absent: crackles, wheezing - Cardiovascular Exam Cardiac:: Present: S1, S2 - GI Exam GI:: Present: soft, no hepatosplenomegaly - Skin Exam Skin: Present: warm, no rash, dry - Neurological Exam Neurological: Present: alert, awake, normal cognition - Extremities Exam Extremities: Present: no cyanosis, no clubbing, no edema - Psychiatric Exam Psychiatric: Present: normal affect Assessment and Plan (1) Asthmatic bronchitis with acute exacerbation Status: Acute Category: Medical Code(s): J45.901 - Unspecified asthma with (acute) exacerbation (2) History of breast cancer Status: Acute Category: Medical Code(s): Z85.3 - Personal history of malignant neoplasm of breast (3) Acute bronchitis Status: Acute Qualifiers: Bronchitis organism: unspecified organism Qualified Code(s): J20.9 - Acute bronchitis, unspecified Category: Medical Code(s): J20.9 - Acute bronchitis, unspecified (4) Fall Status: Acute Qualifiers: Encounter type: initial encounter Qualified Code(s): W19.XXXA - Unspecified fall, initial encounter Category: Medical Code(s): W19.XXXA - Unspecified fall, initial encounter (5) Debility Status: Acute Category: Medical Code(s): R53.81 - Other malaise (6) Anxiety Status: Chronic Category: Medical Code(s): F41.9 - Anxiety disorder, unspecified (7) COPD (chronic obstructive pulmonary disease) Status: Chronic Qualifiers: COPD type: emphysema Emphysema type: unspecified Qualified Code(s): J43.9 - Emphysema, unspecified Category: Medical Code(s): J44.9 - Chronic obstructive pulmonary disease, unspecified (8) GERD (gastroesophageal reflux disease) Status: Chronic Category: Medical Code(s): K21.9 - Gastro-esophageal reflux disease without esophagitis - Assessment and plan all Dx Assessment and Plan for all problems:: #COPD exacerbation: #Chronic stable left pleural effusion: #Nocturnal hypoxia on chronic nocturnal oxygen therapy at 2 L: Ms. Chappell is a 71-year-old history of breast cancer COPD FEV1 at 41% predicted on triple inhaler therapy at home presented hospital worsening respiratory failure and COPD exacerbation. Chest x-ray did not show any acute pulmonary filtrates, this showed stable chronic left-sided pleural effusion. COVID-19 and influenza panel resulted negative. Neutrophilic leukocytosis. Prior blood cultures from 2019 grew Pseudomonas sensitive to levofloxacin. Patient status clinically improved over his hospital admission. She continued to be needing oxygen therapy during the daytime in this hospital visit. [facility] 6-minute walk clinic for daytime oxygen for before discharge. Been advised to use nocturnal oxygen therapy which is her home medication prior to his admission. Plan: -6-minute walk testing recommend the need for daytime oxygen therapy before discharge. -DuoNebs every 6 hours along with budesonide every 12 schedule, continue home triple inhaler therapy patient Symbicort and Spiriva Respimat 2.5 were reordered today - Levofloxacin 750 mg daily for a total of 7 days -Wean methylprednisolone to prednisone 40 mg daily for a total of 5 more days -Continue Incentive spirometry. #Thank for involving pulmonary in this patient care. We will follow in pulmonary clinic in 2 to 4 weeks or patient also advised to bring her inhalers to her clinic visit.
--- NOTE | 2021-06-20 11:05 | HMH.PHAINT ---
DISCHARGE MEDICATION COUNSELING COMPLETED. PT ENDORSED NO QUESTIONS AT THIS TIME.
[2021-06-20 12:00] VITALS: BP 147/74; PULSE 70; RESP 19; TEMP 37.2; O2SAT 98
--- NOTE | 2021-06-25 14:22 | HMH.DCSUM ---
General - General Admission date:: 06/17/21 <Louie Land - 07/03/21 19:07> 06/17/21 <Ann Galvan - 06/25/21 14:27> Discharge date: 06/20/21 <Ann Galvan - 06/25/21 14:27> HPI HPI: Ms. Chappell is a 71-year-old female with a history of oxygen dependent COPD, arthritis, asthma, fibromyalgia, anxiety with panic attacks, hypertension, lung nodule followed by pulmonology, Chetan, and breast cancer who presented to [facility] emergency room after progressive decline over the past 2 days. She states she has had a productive cough of brown sputum along with shortness of breath. She uses her oxygen continuously at home. She has been very weak and developed a fever. She also noted that she fell last night and laid on the floor for about 4 hours. She states she felt dizzy and fell. She denies any injuries from this although she is noted to have dressings on her right arm following abrasions from the fall. Patient was evaluated in the emergency room and felt to have acute bronchitis. Blood chemistries show normal potassium and sodium and renal function. Blood sugar was 178. Liver function studies were all normal. She was admitted for further evaluation and treatment. Patient is noted to have completed a course of Levaquin and a steroid pack started 05/27/2021. She states she did get better although the cough never did resolve. At time of exam patient continues with a congested cough. She states her breathing is better and she has no chest pain. She also states that she has not been eating or drinking very well at home. <Ann Galvan - 06/25/21 14:27> Hospital Course Hospital Course: Patient was started on IV fluids as well as antibiotics and duo nebs. She was also started on steroids. Her shortness of breath did improve and she began feeling better. A repeat chest x-ray was ordered and it showed COPD with a small left effusion. A physical therapy evaluation was ordered and they felt the patient was appropriate to return home once medically stable. Pulmonology was consulted as well. Her blood cultures from 2018 grew out a Pseudomonas which was sensitive to Levaquin. He recommended changing her Rocephin and Zithromax to Levaquin 750 mg daily for total of 7 days. She never did produce a sputum for culture, but her blood cultures showed no growth. By 06/20/2021, she was feeling better and was anxious to go home. She was stable to be discharged on Levaquin and steroids and will follow up with Dr. Land in the office. <Ann Galvan - 06/25/21 14:27> Objective Vital signs: Temp Pulse Resp BP Pulse Ox 99 F 70 19 147/74 H 98 06/20/21 12:00 06/20/21 12:00 06/20/21 12:00 06/20/21 12:00 06/20/21 12:00 <Louie Land - 07/03/21 19:07> Temp Pulse Resp BP Pulse Ox 99 F 70 19 147/74 H 98 06/20/21 12:00 06/20/21 12:00 06/20/21 12:00 06/20/21 12:00 06/20/21 12:00 <Ann Galvan - 06/25/21 14:27> Narrative: - Constitutional no acute distress - *Routine Neck Exam Present: supple. Absent: lymphadenopathy - *Routine Respiratory Exam Present: decreased breath sounds. Absent: wheezes - *Routine Cardiovascular Exam Present: RRR - *Routine Abdominal Exam Present: soft, normoactive bowel sounds. Absent: tenderness - *Routine Extremities Exam Absent: cyanosis, clubbing, edema - *Routine Skin Exam Present: warm. Absent: rash - *Routine Neurological Exam Present: alert, oriented X3 <Ann Galvan - 06/25/21 14:27> DS: Diagnosis - Discharge Diagnosis (1) Asthmatic bronchitis with acute exacerbation Status: Acute (2) History of breast cancer Status: Acute (3) Acute bronchitis Status: Acute (4) Fall Status: Acute (5) Debility Status: Acute (6) Anxiety Status: Chronic (7) COPD (chronic obstructive pulmonary disease) Status: Chronic (8) GERD (gastroesophageal reflux disease) S
== END 2021-06-20 13:35 | disposition home health service (06) ==
LOC: ER 01:06 → 2ND 04:18
PROVIDERS: Nurse Practitioner Family; Admitting Provider Family Medicine; Emergency Provider Emergency Medicine; PCP Family Medicine; Visit Provider Family Medicine
DX: E86.0 Dehydration (principal); J45.901 Unspecified asthma with (acute) exacerbation; K21.9 Gastro-esophageal reflux disease without esophagitis; Z79.899 Other long term (current) drug therapy; Z88.7 Allergy status to serum and vaccine; Z88.8 Allergy status to other drugs, medicaments and biological substances; Z20.822 Contact with and (suspected) exposure to COVID-19; J90 Pleural effusion, not elsewhere classified; Z79.51 Long term (current) use of inhaled steroids; Z85.3 Personal history of malignant neoplasm of breast; Z99.81 Dependence on supplemental oxygen; R29.6 Repeated falls; I10 Essential (primary) hypertension; Z87.891 Personal history of nicotine dependence
CPT/HCPCS: G0378; 36415; 71045; 71046; 80048; 80053; 81001; 82550; 83605; 85007; 85025; 87040; 94618; 94640; 96365; 96367; 97162; 97165; 99284; J0456; J1956; U0003

== ENCOUNTER 2022-09-04 02:29 | Inpatient (IN) | payer MEDICARE, MEDICAID, SELFPAY ==
[2022-09-04] VITALS (24 sets, daily range): BP systolic 112–195; BP diastolic 55–91; PULSE 64–95; RESP 16–40; TEMP 36.4–37.9; O2SAT 95–100; BMI 22.8; BMI 24.7; BMI 21.2; BMI 21.1
--- NOTE | 2022-09-04 02:26 | ECG_ITS ---
APPROVED REPORT Exam: Resting ECG HR:89 bpm ECG Measurements Heart Rate 89 AXES QRSd 73 QRS 78 QT 322 T 91 QTc 369 Conclusion ATRIAL FIBRILLATION SEPTAL MYOCARDIAL INFARCTION , OF INDETERMINATE AGE [40+ ms Q WAVE IN V1/V2] ABNORMAL ECG INTERPRETATION BASED ON A DEFAULT AGE OF 40 YEARS UNCONFIRMED REPORT Electronically signed by : Kody Bower MD 09/04/2022 20:05:40
[2022-09-04 02:37] LABS: ABG Base Excess -3.2 mmol/L (-2.4-2.3); ABG HCO3 27.5 mmhg (22.0-26.0); ABG Oxygen Saturation 89 % (90-100); ABG PO2 79.6 mmhg (80-100); ABG TCO2 30.6 mmhg (23-27); Oxygen 4L %
[2022-09-04 02:38] LABS: Allen's Test Patient Unable; Source Left Radial
[2022-09-04 02:40] LABS: ABG PCO2 104.1 mmhg (35.0-45.0); ABG PH 7.04 mmol/L (7.35-7.45)
--- NOTE | 2022-09-04 02:42 | XR_ITS ---
PROCEDURE INFORMATION: Exam: XR Chest Exam date and time: 09/04/2022 3:02 AM Age: 72 years old Clinical indication: Shortness of breath; Prior surgery; Additional info: SOA TECHNIQUE: Imaging protocol: Radiologic exam of the chest. Views: 1 view. COMPARISON: CR XR CHEST 2V 06/19/2021 9:30 AM FINDINGS: Tubes, catheters and devices: Central venous catheters in good position. No acute process identified. Lungs: Patchy airspace disease right lung base. Chronic interstitial changes are present bilaterally. Pleural spaces: Unremarkable. No pleural effusion. No pneumothorax. Heart/Mediastinum: Unremarkable. No cardiomegaly. Diaphragm: Stable blunting left lateral CP angle. Bones/joints: Unremarkable. IMPRESSION: Patchy airspace disease right lung base may represent early infiltrate.
--- NOTE | 2022-09-04 02:45 | PC.NURSE ---
All orders verbal orders from MD Shaheed
[2022-09-04 02:48] LABS: Microscopic, Urine URINE MICROSCOPIC (MICROSCOPIC)
[2022-09-04 02:50] LABS: Basophils # 0.3 K/mm3 (0-0.2); Basophils % 1.7 % (0.1-2.0); Eosinophils # 0.5 K/mm3 (0.0-0.4); Eosinophils % 2.5 % (0.1-12.0); Hemoglobin 13.3 g/dL (12.2-16.2); Lymphocytes # 6.3 K/mm3 (0.7-4.5); Lymphocytes % 34.1 % (10-50); Mean Corpuscular HGB Conc 29.7 g/dL (31.8-35.4); Mean Corpuscular Hemoglobin 27.2 pg (27.0-31.2); Mean Corpuscular Volume 91.5 fl (81-99); Mean Platelet Volume 8.2 fl (7.4-10.4); Monocytes # 0.9 K/mm3 (0.1-1.0); Monocytes % 5.1 % (1.7-9.3); Neutrophils # 10.4 K/mm3 (1.8-7.8); Neutrophils % 56.6 % (37.0-80.0); Platelet Count 398 K/mm3 (142-424); Red Blood Count 4.91 M/mm3 (4.20-5.40); Red Cell Distribution Width 15.3 % (11.5-17.5); White Blood Count 18.3 K/mm3 (4.8-10.8)
[2022-09-04 02:52] LABS: Appearance,Urine CLEAR (Clear); Bilirubin,Urine Negative (Negative); Blood, Urine TRACE-I (Negative); Color,Urine YELLOW (Yellow); Glucose,Urine (UA) Negative (Negative); Ketones,Urine Negative (Negative); Leukocyte Esterase,Urine Negative (Negative); Nitrate,Urine Negative (Negative); Protein,Urine 2+ (Negative); Urobilinogen,Urine 0.2 EU/dl (0.2)
--- NOTE | 2022-09-04 02:52 | PC.NURSE ---
RT at BS to start pt on BiPAP
--- NOTE | 2022-09-04 02:52 | PC.NURSE ---
RAD at for CXR
[2022-09-04 02:57] LABS: Alanine Aminotransferase 24 U/L (12-78); Albumin Level 4.6 g/dl (3.5-5.0); Albumin/Globulin Ratio 1.6 (1.1-1.8); Alkaline Phosphatase 72 U/L (38-126); Anion Gap 16.9 mEq/L (5-15); Aspartate Amino Transferase 43 U/L (14-36); Bilirubin,Total 0.4 mg/dl (0.2-1.3); Carbon Dioxide 32 mmol/L (22.0-30.0); Chloride 95 mmol/L (98-107); Globulin 2.8 g/dL (1.3-3.2); Glucose 236 mg/dl (74-100); Potassium 4.9 mmoL/L (3.5-5.1); Sodium 139 mmol/L (136-145); Total Protein,Serum 7.4 g/dl (6.3-8.2)
[2022-09-04 03:01] LABS: Blood Urea Nitrogen 11 mg/dl (7-17)
[2022-09-04 03:02] LABS: Creatinine Clearance Estimated 45 mL/min (50-200); Estimated Glomerular Filt Rate 70 ml/min (>60); GFR (African American) 85 ML/MIN (>60)
--- NOTE | 2022-09-04 03:02 | HMH.EDSOB ---
Discharge Plan Disposition Patient Disposition: Admitted As Inpatient Prescriptions Prescriptions: No Action gabapentin 300 mg capsule 600 mg PO BID budesonide-formoterol [Symbicort] 160-4.5 mcg/actuation HFA aerosol inhaler 2 puff INHALATION BID 90 Days Qty: 10.2 3RF Spiriva Respimat 2.5 mcg/actuation mist 2 inh INHALATION DAILY 90 Days Qty: 4 3RF albuterol sulfate 90 mcg/actuation HFA aerosol inhaler 1 inh INHALATION Q6H PRN (Reason: shortness of breath or wheezing) 90 Days Qty: 8.5 3RF albuterol sulfate 1.25 mg/3 mL solution for nebulization 1.25 mg INHALATION QID Qty: 90 3RF Rx Instructions: To be used before 3% normal saline nebulization. metoprolol succinate 50 MG tablet 50 mg PO BID Qty: 60 0RF verapamil 120 tablet 120 mg PO BID Qty: 60 0RF montelukast 10 MG tablet 10 mg PO HS Qty: 30 0RF alprazolam 0.5 MG tablet,disintegrating 0.5 mg PO BIDP PRN (Reason: Anxiety) Qty: 60 0RF esomeprazole magnesium [address] for susp in packet 40 mg PO DAILY Qty: 30 0RF cetirizine 10 MG capsule 10 mg PO HS Qty: 30 0RF fluticasone propionate 16 GM spray,suspension 1 spray INTRANASAL DAILY Rx Instructions: administer into each nostril sertraline 100 MG tablet 150 mg PO DAILY tramadol 50 MG tablet 50 mg PO BID levofloxacin 750 MG tablet 750 mg PO DAILY Qty: 5 0RF prednisone 20 MG tablet 20 mg PO DAILY Qty: 5 0RF nystatin 500,000 UNIT/5 ML suspension 500,000 unit PO QID Qty: 120 0RF Referrals Follow up/Referrals: Louie Land MD [Primary Care Provider] - See instructions Clinical Impressions Clinical Impression: Acute exacerbation of chronic obstructive airways disease, Respiratory failure with hypercapnia, Severe sepsis with acute organ dysfunction Discharge ED Provider: Junaid Hummel Resp/SOB HPI General Chief Complaint: Shortness of Breath/Dyspnea Stated Complaint: SOA Time Seen by Provider: 09/04/22 03:02 Mode of Arrival: EMS Source of Information: EMS and Medical Record Limitations: Altered Mental Status Description of Symptoms (Recalled from ER Triage Doc. by RN): Pt brought by EMS on 4LPM [place]. States they were called to residence with a complaint of asthma attack. Pt does have a hx of asthma and copd. States they gave her 1 Duo-neb tx in route and established an IV. Pt has been trying to talk but nothing clear has come out . Pt is diaphoretic, obtunded, tachypneic, and labordered breathing. Pt not responding to commands. History of Present Illness pt with altered mental status -last 2 days with progressive decline - has copd and o2 dep - no trauma MD Complaint: shortness of breath Onset (ago): day(s) Severity: severe Known history of: COPD Treatment prior to arrival: oxygen Related Data Home oxygen amount: 4 liters Home Medications Medication Instructions Recorded Confirmed gabapentin 300 mg capsule 600 mg PO BID Pain 09/25/20 06/17/21 fluticasone propionate 50 1 spray intranasal DAILY Asthma 06/17/21 06/17/21 mcg/actuation nasal spray,suspension sertraline 100 mg tablet 150 mg PO DAILY Depression 06/17/21 06/17/21 tramadol 50 mg tablet 50 mg PO BID Pain 06/17/21 06/17/21 Previous Rx's Medication Instructions Recorded alprazolam 0.5 mg disintegrating 0.5 mg PO BIDP PRN Anxiety #60 tabs 08/16/19 tablet cetirizine 10 mg capsule 10 mg PO HS allergies #30 caps 08/16/19 esomeprazole magnesium 40 mg 40 mg PO DAILY GERD ##30 08/16/19 granules delayed release for susp metoprolol succinate 50 mg 50 mg PO BID High blood pressure 08/16/19 tablet,extended release 24 hr #60 tabs montelukast 10 mg tablet 10 mg PO HS Allergy symptoms #30 08/16/19 tabs verapamil 120 mg tablet 120 mg PO BID Hypertension #60 tabs 08/16/19 albuterol sulfate 1.25 mg/3 mL 1.25 mg (3 mL) inhalation QID #90 06/20/21 solution for nebulization mL albuterol sulfate 90 mcg/actuation 1 inh inhalation Q6H
[2022-09-04 03:03] LABS: Bacteria,Urine Trace /lpf; Lactic Acid 2.4 mmol/L (0.7-2.1)
[2022-09-04 03:04] LABS: MANUAL DIFFERENTIAL MANUAL DIFFERENTIAL (MANUAL DIFF)
--- NOTE | 2022-09-04 03:05 | PC.NURSE ---
Late Entry: @0240 pt desat to 70% while on 4LPM, breathing more shallow, and lips dusky. placing pt on 100% NRB and sats improving. @0242 sats 98% on NRB. Respiratory called with critical abg, Dr. Hummel notified.
[2022-09-04 03:09] LABS: Troponin I 0.04 ng/ml (0.00-0.034)
[2022-09-04 03:14] LABS: Procalcitonin 0.055 ng/mL (0.0-2.0)
--- NOTE | 2022-09-04 03:15 | PC.NURSE ---
made aware of Sepsis w/ organ dysfunction. Verbal orders for 500mg Levaquin IV now
[2022-09-04 03:18] LABS: Coronavirus 19, PCR Not Detected (NotDetected); Influenza A, PCR Not Detected (NotDetected); Influenza B, PCR Not Detected (NotDetected)
--- NOTE | 2022-09-04 03:26 | PC.NURSE ---
Dr. Tor calabrese
[2022-09-04 03:27] LABS: Acetone, Serum (Rapid) None Detected (None Detect)
--- NOTE | 2022-09-04 03:33 | PC.NURSE ---
Dr. Hummel speaking to Dr. Lentz
--- NOTE | 2022-09-04 03:40 | PC.NURSE ---
PATIENT ADMITTED TO 203 WITH DX OF SEVERE SEPSIS TO SERVICE OF DR. BRODY TO DR. CHRISTENSEN.
[2022-09-04 03:42] LABS: Eosinophils % 3 % (0-3); Lymphocytes % 47 % (10-50); Monocytes % 5 % (2-9); Neutrophils % 45 % (42-76); Total Cells Counted 100
[2022-09-04 03:43] LABS: Platelet Estimate Normal; RBC Morphology Normal
[2022-09-04 04:07] LABS: ABG Base Excess 1.2 mmol/L (-2.4-2.3); ABG HCO3 29.4 mmhg (22.0-26.0); ABG Oxygen Saturation 100 % (90-100); ABG PO2 396.8 mmhg (80-100); ABG TCO2 31.8 mmhg (23-27)
[2022-09-04 04:11] LABS: Allen's Test Patient Unable; Oxygen 80 %; PEEP 8; Source Left Radial
[2022-09-04 04:13] LABS: ABG PCO2 78.4 mmhg (35.0-45.0); ABG PH 7.19 mmol/L (7.35-7.45)
--- NOTE | 2022-09-04 04:35 | PC.NURSE ---
PT ARRIVED TO [facility] AT THIS TIME
[2022-09-04 06:44] LABS: POC Glucose,Bedside 112 (70-110)
[2022-09-04 06:47] LABS: Reflex Lactic Add Lactic Reflex
[2022-09-04 07:22] LABS: Basophils % 0.2 % (0.1-2.0); Hematocrit 47.9 % (37.0-47.0); Hemoglobin 14.3 g/dL (12.2-16.2); Lymphocytes # 0.5 K/mm3 (0.7-4.5); Lymphocytes % 5.8 % (10-50); Mean Corpuscular HGB Conc 29.9 g/dL (31.8-35.4); Mean Corpuscular Hemoglobin 27.2 pg (27.0-31.2); Mean Corpuscular Volume 90.9 fl (81-99); Mean Platelet Volume 8.1 fl (7.4-10.4); Monocytes # 0.3 K/mm3 (0.1-1.0); Monocytes % 3.5 % (1.7-9.3); Neutrophils % 90.5 % (37.0-80.0); Platelet Count 139 K/mm3 (142-424); Red Blood Count 5.27 M/mm3 (4.20-5.40); Red Cell Distribution Width 15.2 % (11.5-17.5); White Blood Count 8.9 K/mm3 (4.8-10.8)
--- NOTE | 2022-09-04 07:34 | HMH.PHAINT1 ---
Pharmacy Intervention Comments: clarified home medication list using list from clinic pharmacy
[2022-09-04 07:51] LABS: Lactic Acid Follow Up (RFLX 1) 1.8 mmol/L (0.7-2.1)
[2022-09-04 07:53] LABS: Chloride 100 mmol/L (98-107); Sodium 139 mmol/L (136-145)
[2022-09-04 07:54] LABS: Potassium 5.2 mmoL/L (3.5-5.1)
[2022-09-04 07:56] LABS: Anion Gap 15.2 mEq/L (5-15); Blood Urea Nitrogen 11 mg/dl (7-17); Carbon Dioxide 29 mmol/L (22.0-30.0); Creatinine Clearance Estimated 41 mL/min (50-200); Estimated Glomerular Filt Rate 98 ml/min (>60); GFR (African American) 119 ML/MIN (>60)
--- NOTE | 2022-09-04 07:56 | PC.NURSE ---
Pt has been aox4 since arriving to floor, states she does not remember coming to hospital. Pt education given on need for Bipap, pt states understanding. Pt unable to state medications. is to bring home medications in this AM. Call light within reach.
[2022-09-04 07:57] LABS: Calcium 8.3 mg/dl (8.4-10.2); Glucose 121 mg/dl (74-100)
--- NOTE | 2022-09-04 08:00 | CA_ITS ---
APPROVED REPORT EXAM: Comprehensive 2D, Doppler, and color-flow Echocardiogram Auto Rebuilder: Abena De La Rosa, JOEY, RVS Ht: 5 ft 2 in Wt: 125lbs BSA: 1.57 BP: 190/78 mmHg Indications: Severe sepsis, Elevated troponin, Murmur, COPD, Smoker, Asthma, SOA 2D Dimensions IVSd 0.54 cm LVEF (Visual) 65.70 % PWd 0.75 cm LVDd 3.78 cm LVDs 2.44 cm Aortic Root 2.17 cm Left Atrium 3.31 cm LVOT 1.73 cm (M/F) 1.5-2.5 M-Mode Dimensions LA Diam 3.44 cm (1.9-4.0) LVDd 4.43 cm (3.5-5.7) Ao Diam 2.22 cm (2.0-3.7) LVDs 3.47 cm (3.5-5.7) EF (Teich) 44.10% EPSs 1.26 cm FS 21.70% EDV (Teich) 89.10 mL TAPSE 1.33 (<1.7) ESV (Teich) 49.80 mL LV Diastology E Decel Time 220.00 (160-240 msec) E/A Ratio 1.13 MED E' 5.50 (< 7 cm/sec) MED A' 8.20 cm/s E'/MED E' Ratio 13.96 (>14) LAT E' 6.10 (<10 cm/sec) LAT A' 9.70 cm/s E/LAT E' Ratio 12.59 (>14) Aortic Valve LVOT Max 100.00 (70-110 cm/s) LVOT VTI 24.03 cm AoV Peak Frankie. 140.00 (50-130 cm/s) AO Peak GR. 7.90 mmHg AO Mean GR. 4.00 (<5 mmHg) AO VTI 31.26 (18-25 cm) ERROL (VTI) 1.81 (2.5-4.5 cm2) Mitral Valve MV A Velocity 68.00 (40-130 cm/s) E/A Ratio 1.13 MV Decel. Time 220.00 (160-240 ms) Pulmonary Valve PV Peak Velocity 84.00 (50-150 cm/s) Tricuspid Valve TR P. Velocity 250.00 cm/s RAP Estimate 10.00 mmHg RVSP 35.00 mmHg Left Ventricle Technically difficult study because of the patient factors and poor acoustic windows. Left atrium is mildly enlarged, left ventricle is normal size mild concentric left ventricular hypertrophy, estimated ejection fraction approximately 30 to 35%, there is marked hypokinesis involving mid to distal septum, anterior, anterior apical wall. Grade 2 diastolic dysfunction seen without tissue Doppler evidence of raise left atrial pressure. Right Ventricle Right atrium and right ventricle are mildly enlarged with normal contractility. Aortic Valve Aortic valve is thickened and calcified without Doppler evidence of aortic stenosis or aortic insufficiency. Mitral Valve Mitral valve has mitral annular calcification, leaflets are minimally thickened, there is no mitral stenosis. There is mild mitral regurgitation. Tricuspid Valve Tricuspid valve grossly normal, there is mild tricuspid regurgitation, tricuspid regurgitation request is inadequate for calculation of the right ventricular systolic pressure. Pulmonic Valve Pulmonic valve is poorly visualized. Great Vessels Aortic root is normal size. Inferior vena cava is poorly visualized. Pericardium No significant pericardial effusion noted. Conclusion 1. Technically difficult study because of the patient factors and poor acoustic windows. 2. Mild biatrial enlargement, normal left ventricular size, mild concentric left ventricular hypertrophy, estimated ejection fraction 30 to 35% with multiple segmental wall motion abnormality described above, grade 2 diastolic dysfunction seen without tissue Doppler evidence of raise left atrial pressure. 3. Mildly enlarged right ventricle with normal contractility. 4. Thickened and calcified aortic valve without aortic stenosis aortic insufficiency. 5. Mild mitral and tricuspid regurgitation. 6. No significant pericardial effusion. 7. Inferior vena cava is poorly visualized. Electronically signed by : Elvis Kapoor MD 09/05/2022 13:07:50
--- NOTE | 2022-09-04 08:15 | EXP.HP ---
History of Present Illness *Admission Date: 09/04/22 *Reason for visit:: SOA *History of present illness: Ms. Guillen is a 72-year-old female with a history of oxygen dependent COPD and asthma. She states she has had some shortness of breath the past few days and was sitting on the toilet at home when she had what felt like an asthma attack. She could not breathe and her grandson called 911. She states she remembers them arriving at her home and does not remember anything else until waking up in the hospital. According to the ER note, she was brought in by EMS on 4 L of nasal oxygen. They gave her 1 DuoNeb treatment in route. When she arrived at the emergency room, she was diaphoretic, obtunded, tachypneic, and had labored breathing. She could not respond to any commands. Her white blood cell count was initially elevated and her blood gas initially showed a pH of 7.04 with a PCO2 of 104.1 and a PO2 of 79.6. Her HCO3 was 27.5. Her lactic acid was elevated as was her initial troponin. COVID testing was negative. She was admitted and placed on BiPAP and is feeling better this morning. She is awake and alert and can answer questions. [facility] Medical History (Updated 09/04/22 @ 08:56 by ESTRELLITA Bell) Anxiety Arthritis Asthma COPD (chronic obstructive pulmonary disease) Fibromyalgia GERD (gastroesophageal reflux disease) History of breast cancer History of gastroesophageal reflux (GERD) Hypertension Surgical History (Updated 09/04/22 @ 08:56 by ESTRELLITA Bell) History of appendectomy History of back surgery History of breast biopsy History of colonoscopy History of esophagogastroduodenoscopy (EGD) History of lumpectomy of left breast History of total hysterectomy Social History (Updated 09/04/22 @ 07:04 by Luz Maria Parra RN) Smoking Status: Current every day smoker tobacco type: cigarettes packs per day: 1 second hand exposure: Yes alcohol intake: never current occupational status: retired Travel in the last 8 weeks: None household members: spouse housing: house current occupational exposures/hazards: No caffeine: Yes Review of Systems Constitutional Constitutional: Reports fatigue, Denies headache(s) and Reports weakness Eyes Eyes: Denies blurry vision and Denies diplopia ENT Ears, Nose, Mouth, and Throat: Denies headache(s), Denies nasal congestion, Denies sore throat and Denies vertigo *Cardiovascular Cardiovascular: Denies chest pain, Reports dyspnea and Denies leg edema *Respiratory Respiratory: Denies cough, Reports dyspnea and Reports wheezing *Gastrointestinal Gastrointestinal: Reports abdominal pain (lower abdomen), Denies loose stools, Denies nausea and Denies vomiting *Genitourinary Genitourinary: Denies difficulty voiding and Denies dysuria *Musculoskeletal Musculoskeletal: Denies arthralgias and Denies myalgias *Neurologic Neurologic: Denies headache(s), Denies vertigo and Reports weakness Endocrine Endocrine: Reports fatigue Allergic/Immunologic Allergic/Immunologic: Reports wheezing Meds Home Medications and Allergies Home Medications Medication Instructions Recorded Confirmed Type cetirizine 10 mg capsule 10 mg PO HS allergies #30 caps 08/16/19 09/04/22 Rx esomeprazole magnesium 40 mg 40 mg PO DAILY GERD ##30 08/16/19 09/04/22 Rx granules delayed release for susp metoprolol succinate 50 mg 50 mg PO BID High blood pressure 08/16/19 09/04/22 Rx tablet,extended release 24 hr #60 tabs verapamil 120 mg tablet 120 mg PO BID Hypertension #60 tabs 08/16/19 09/04/22 Rx gabapentin 300 mg capsule 600 mg PO BID Pain 09/25/20 09/04/22 History sertraline 100 mg tablet 150 mg PO DAILY Depression 06/17/21 09/04/22 History tramadol 50 mg tablet 50 mg PO BID Pain 06/17/21 09/04/22 History albuterol sulfate 90 mcg/actuation 1 inh inhalation Q6H PRN shortness 06/20/21 09/04/22 Rx aerosol inhaler of breath or wheezing 90 days #8.5 grams albuterol sulfate 1.25 mg/3 mL
--- NOTE | 2022-09-04 09:35 | EXP.PULM.CON ---
History of Present Illness History of present illness: Ms. Chappell is a 72-year-old female greater than [id number] smoking history of severe COPD presented to hospital with worsening respiratory's along with cough and burning that has been progressively worsening for the last 1 week. At present in the ER patient noted to be in significant hypercarbic respiratory failure, altered mentation needing noninvasive ventilator therapy and pulmonary was called for further management [facility] Medical History (Updated 09/04/22 @ 11:18 by Deedee Zhou MD) Anxiety Arthritis Asthma COPD (chronic obstructive pulmonary disease) COPD exacerbation Fibromyalgia GERD (gastroesophageal reflux disease) History of breast cancer History of gastroesophageal reflux (GERD) Hypertension Pneumonia Respiratory failure with hypercapnia Surgical History (Updated 09/04/22 @ 08:56 by ESTRELLITA Bell) History of appendectomy History of back surgery History of breast biopsy History of colonoscopy History of esophagogastroduodenoscopy (EGD) History of lumpectomy of left breast History of total hysterectomy Social History (Updated 09/04/22 @ 07:04 by Luz Maria Parra RN) Smoking Status: Current every day smoker tobacco type: cigarettes packs per day: 1 second hand exposure: Yes alcohol intake: never current occupational status: retired Travel in the last 8 weeks: None household members: spouse housing: house current occupational exposures/hazards: No caffeine: Yes Review of Systems Constitutional Constitutional: Reports fatigue, Denies headache(s) and Reports weakness Eyes Eyes: Denies eye discharge, Denies dry eyes, Denies irritation and Denies itchy eyes ENT Ears, Nose, Mouth, and Throat: Denies headache(s), Denies lip swelling, Denies throat swelling and Denies vertigo *Cardiovascular Cardiovascular: Reports dyspnea and Reports dyspnea on exertion *Respiratory Respiratory: Reports chest congestion, Reports cough, Reports dyspnea, Reports dyspnea on exertion, Reports excessive phlegm production and Reports wheezing *Gastrointestinal Gastrointestinal: Denies abdominal pain, Denies belching and Denies cramping *Musculoskeletal Musculoskeletal: Reports back pain, Reports myalgias and Reports other (No small joint swelling or Pain) *Neurologic Neurologic: Denies headache(s), Denies vertigo and Reports weakness Psychiatric Psychiatric: Denies homicidal ideation and Denies suicidal ideation Endocrine Endocrine: Reports fatigue and Denies heat intolerance Hematologic/Lymphatic Hematologic/Lymphatic: Denies easy bleeding and Denies lymphadenopathy Allergic/Immunologic Allergic/Immunologic: Denies itchy eyes, Denies lip swelling, Denies throat swelling and Reports wheezing Pulmonology Exam Inpatient Vital signs and Labs for Last 24 Hours: Temp Pulse Resp BP Pulse Ox FiO2 98.0 F 69 22 136/70 100 40 09/04/22 08:00 09/04/22 08:00 09/04/22 08:00 09/04/22 08:00 09/04/22 08:00 09/04/22 04:45 Laboratory Results - last 24 hr 09/04/22 02:33: Specimen Source Left radial, O2 % 4l, ABG pH 7.04 L*, ABG pCO2 104.1 H, ABG pO2 79.6 L, ABG HCO3 27.5 H, ABG Total CO2 30.6 H, ABG O2 Saturation 89 L, ABG Base Excess -3.2 L, Uriel Test Patient unable 09/04/22 02:36: WBC 18.3 H, RBC 4.91, Hgb 13.3, Hct 45.0, MCV 91.5, MCH 27.2, MCHC 29.7 L, RDW 15.3, Plt Count 398, MPV 8.2, Neut % (Auto) 56.6, Lymph % (Auto) 34.1, [place] % (Auto) 5.1, Eos % (Auto) 2.5, Baso % (Auto) 1.7, Neut # (Auto) 10.4 H, Lymph # (Auto) 6.3 H, [place] # (Auto) 0.9, Eos # (Auto) 0.5 H, Baso # (Auto) 0.3 H, Total Counted 100, Neutrophils % (Manual) 45, Lymphocytes % (Manual) 47, Monocytes % (Manual) 5, Eosinophils % (Manual) 3, Platelet Estimate Normal, RBC Morphology Normal 09/04/22 02:36: Sodium 139, Potassium 4.9, Chloride 95 L, Carbon Dioxide 32 H, Anion Gap 16.9 H, BUN 11, Creatinine 0.80, Estimated Creat Clear 45, Estimated GFR 70, Est GFR ( Amer) 85, Glucose 236
--- NOTE | 2022-09-04 09:51 | EXP.ACUTE.PN ---
Subjective *Date: 09/04/22 *Time: 09:51 Interval history: Chart reviewed. Patient admitted through ER and respiratory failure with acidosis.Currently on BiPAP. Receiving steroids and IV antibiotics. Medical Exam Vital signs and Labs for Last 24 Hours: Temp Pulse Resp BP Pulse Ox FiO2 98.0 F 69 22 136/70 100 40 09/04/22 08:00 09/04/22 08:00 09/04/22 08:00 09/04/22 08:00 09/04/22 08:00 09/04/22 04:45 Laboratory Results - last 24 hr 09/04/22 02:33: Specimen Source Left radial, O2 % 4l, ABG pH 7.04 L*, ABG pCO2 104.1 H, ABG pO2 79.6 L, ABG HCO3 27.5 H, ABG Total CO2 30.6 H, ABG O2 Saturation 89 L, ABG Base Excess -3.2 L, Uriel Test Patient unable 09/04/22 02:36: WBC 18.3 H, RBC 4.91, Hgb 13.3, Hct 45.0, MCV 91.5, MCH 27.2, MCHC 29.7 L, RDW 15.3, Plt Count 398, MPV 8.2, Neut % (Auto) 56.6, Lymph % (Auto) 34.1, [place] % (Auto) 5.1, Eos % (Auto) 2.5, Baso % (Auto) 1.7, Neut # (Auto) 10.4 H, Lymph # (Auto) 6.3 H, [place] # (Auto) 0.9, Eos # (Auto) 0.5 H, Baso # (Auto) 0.3 H, Total Counted 100, Neutrophils % (Manual) 45, Lymphocytes % (Manual) 47, Monocytes % (Manual) 5, Eosinophils % (Manual) 3, Platelet Estimate Normal, RBC Morphology Normal 09/04/22 02:36: Sodium 139, Potassium 4.9, Chloride 95 L, Carbon Dioxide 32 H, Anion Gap 16.9 H, BUN 11, Creatinine 0.80, Estimated Creat Clear 45, Estimated GFR 70, Est GFR ( Amer) 85, Glucose 236 H, Calcium 9.0, Total Bilirubin 0.4, AST 43 H, ALT 24, Alkaline Phosphatase 72, Troponin I 0.04 H, Total Protein 7.4, Albumin 4.6, Globulin 2.8, Albumin/Globulin Ratio 1.6, Procalcitonin 0.055 09/04/22 02:36: Lactate 2.4 H 09/04/22 02:36: Urine Color Yellow, Urine Appearance Clear, Urine pH 7.0, Ur Specific [place] 1.020, Urine Protein 2+, Urine Glucose (UA) Negative, Urine Ketones Negative, Urine Blood Trace-i, Urine Nitrate Negative, Urine Bilirubin Negative, Urine Urobilinogen 0.2, Ur Leukocyte Esterase Negative, Urine Bacteria Trace 09/04/22 02:36: Hemoglobin A1c 5.0 09/04/22 02:36: Acetone Level None detected 09/04/22 02:40: SARS-CoV-2 (PCR) Not detected, Influenza A Untype (PCR) Not detected, Influenza Type B (PCR) Not detected 09/04/22 05:00: Specimen Source Left radial, O2 % 80, ABG pH 7.19 L*, ABG pCO2 78.4 H, ABG pO2 396.8 H, ABG HCO3 29.4 H, ABG Total CO2 31.8 H, ABG O2 Saturation 100, ABG Base Excess 1.2, Uriel Test Patient unable, PEEP 8 09/04/22 06:33: WBC 8.9 D, RBC 5.27, Hgb 14.3, Hct 47.9 H, MCV 90.9, MCH 27.2, MCHC 29.9 L, RDW 15.2, Plt Count 139 L D, MPV 8.1, Neut % (Auto) 90.5 H, Lymph % (Auto) 5.8 L, [place] % (Auto) 3.5, Eos % (Auto) 0.0 L, Baso % (Auto) 0.2, Neut # (Auto) 8.0 H, Lymph # (Auto) 0.5 L, [place] # (Auto) 0.3, Eos # (Auto) 0.0, Baso # (Auto) 0.0 09/04/22 06:33: Sodium 139, Potassium 5.2 H, Chloride 100, Carbon Dioxide 29, Anion Gap 15.2 H, BUN 11, Creatinine 0.60 D, Estimated Creat Clear 41, Estimated GFR 98, Est GFR ( Amer) 119 D, Glucose 121 H D, Calcium 8.3 L 09/04/22 06:33: Lactate 1.8 09/04/22 06:37: POC Glucose 112 H I & O for Labs for Last 24 Hours: Intake & Output 09/01/22 09/02/22 09/03/22 09/04/22 11:59 11:59 11:59 11:59 Intake Total 1100 / 1100 Output Total 100 / 100 Balance 1000 / 1000 Weight 115 lb Head: Present normocephalic Neck: Present normal inspection Respiratory: Present decreased breath sounds Comment:: On BiPAP. Cardiac: Present Reg Rate and Rhythm GI: Present soft; Absent tenderness Extremities: Absent edema Neuro: Present alert and awake Assessment and Plan *Assessment and plan (1) COPD (chronic obstructive pulmonary disease): Status: Chronic Qualifiers: COPD type: emphysema Emphysema type: unspecified Qualified Code(s): J43.9 - Emphysema, unspecified Category: Medical Code(s): J44.9 - Chronic obstructive pulmonary disease, unspecified (2) Sepsis: Status: Acute Qualifiers: Sepsis acute organ dysfunction status: unspecified Sepsis type: sepsis due to unspecified o
[2022-09-04 12:03] LABS: POC Glucose,Bedside 129 (70-110)
[2022-09-04 14:13] LABS: ABG Base Excess -1.8 mmol/L (-2.4-2.3); ABG HCO3 23.5 mmhg (22.0-26.0); ABG Oxygen Saturation 99 % (90-100); ABG PCO2 41.6 mmhg (35.0-45.0); ABG PH 7.37 mmol/L (7.35-7.45); ABG PO2 169.3 mmhg (80-100); ABG TCO2 24.8 mmhg (23-27)
[2022-09-04 14:14] LABS: Allen's Test Acceptable; Oxygen 40% %; PEEP 8; Source Left Radial; Vent Rate 16
--- NOTE | 2022-09-04 14:15 | PC.NURSE ---
RESP CARE NOTE: Pt placed on 1 lpm nc and BIPAP placed on standby until patient's bedtime. Per Dr Zhou verbal order.
--- NOTE | 2022-09-04 15:30 | PC.NURSE ---
PT IS RESTING IN BED. ALERT AND ORIENTED X4. NO COMPLAINTS OF DISCOMFORT. BIPAP WAS REMOVED AT 1500. PT IS NOW ON 1 L NC. LUNG SOUNDS DIMINISHED. ABDOMEN SOFT/NON TENDER WITH ACTIVE BOWEL SOUNDS. RESPIRATORY STATED PT WILL NEED TO WEAR BIPAP AGAIN THIS EVENING. WILL CONTINUE TO MONITOR.
[2022-09-04 16:52] LABS: POC Glucose,Bedside 125 (70-110)
[2022-09-04 21:35] LABS: POC Glucose,Bedside 187 (70-110)
[2022-09-05] VITALS (12 sets, daily range): BP systolic 112–156; BP diastolic 56–71; PULSE 61–90; RESP 16–22; TEMP 36.4–36.9; O2SAT 95–100; BMI 21.9
--- NOTE | 2022-09-05 06:36 | PC.NURSE ---
pt rested well through the night, pt wore bipap most of night and tolerated well, 02 sats 100% on bipap and 98% on 1L, pt states she wears 2L at home, f/c to bsd with clear yellow urine noted, skin pwd, VSS, pt is alert and oriented x4, no other issues or concerns at this time
[2022-09-05 06:44] LABS: POC Glucose,Bedside 116 (70-110)
[2022-09-05 06:56] LABS: Chloride 104 mmol/L (98-107); Sodium 137 mmol/L (136-145)
[2022-09-05 06:57] LABS: Potassium 3.7 mmoL/L (3.5-5.1)
[2022-09-05 06:58] LABS: Eosinophils % 0.1 % (0.1-12.0); Lymphocytes # 0.5 K/mm3 (0.7-4.5); Lymphocytes % 6.2 % (10-50); Mean Corpuscular HGB Conc 32.8 g/dL (31.8-35.4); Mean Corpuscular Hemoglobin 28.4 pg (27.0-31.2); Mean Corpuscular Volume 86.8 fl (81-99); Mean Platelet Volume 8.4 fl (7.4-10.4); Monocytes # 0.2 K/mm3 (0.1-1.0); Neutrophils # 7.3 K/mm3 (1.8-7.8); Neutrophils % 90.7 % (37.0-80.0); Platelet Count 157 K/mm3 (142-424); Red Blood Count 3.45 M/mm3 (4.20-5.40); Red Cell Distribution Width 15.5 % (11.5-17.5); White Blood Count 8.1 K/mm3 (4.8-10.8)
[2022-09-05 06:59] LABS: Alanine Aminotransferase 17 U/L (12-78); Albumin Level 3.2 g/dl (3.5-5.0); Albumin/Globulin Ratio 1.3 (1.1-1.8); Alkaline Phosphatase 48 U/L (38-126); Anion Gap 8.7 mEq/L (5-15); Aspartate Amino Transferase 28 U/L (14-36); Bilirubin,Total 0.2 mg/dl (0.2-1.3); Blood Urea Nitrogen 11 mg/dl (7-17); Carbon Dioxide 28 mmol/L (22.0-30.0); Creatinine Clearance Estimated 43 mL/min (50-200); Estimated Glomerular Filt Rate 121 ml/min (>60); GFR (African American) 146 ML/MIN (>60); Globulin 2.4 g/dL (1.3-3.2); Total Protein,Serum 5.6 g/dl (6.3-8.2)
[2022-09-05 07:00] LABS: Calcium 7.9 mg/dl (8.4-10.2); Glucose 122 mg/dl (74-100); Hemoglobin 9.8 g/dL (12.2-16.2); MANUAL DIFFERENTIAL MANUAL DIFFERENTIAL (MANUAL DIFF)
[2022-09-05 07:25] LABS: Lymphocytes % 5 % (10-50); Monocytes % 2 % (2-9); Neutrophils % 93 % (42-76); Platelet Estimate Normal; RBC Morphology Normal; Total Cells Counted 100
--- NOTE | 2022-09-05 08:13 | EXP.ACUTE.PN ---
Subjective *Date: 09/05/22 *Time: 08:13 Interval history: Patient is feeling better this morning. She has been placed on nasal oxygen to eat and feels comfortable. She was able to eat some rice crispies. She states she was in the bed all day yesterday and does have some back pain. She is agreeable to try to get up in the chair today. She did not rest well last night. Medical Exam Vital signs and Labs for Last 24 Hours: Temp Pulse Resp BP Pulse Ox FiO2 97.6 F 70 18 120/61 98 30 09/05/22 04:00 09/05/22 06:10 09/05/22 04:00 09/05/22 04:00 09/05/22 06:10 09/05/22 02:11 Laboratory Results - last 24 hr 09/04/22 11:56: POC Glucose 129 H 09/04/22 13:40: Specimen Source Left radial, O2 % 40%, ABG pH 7.37, ABG pCO2 41.6, ABG pO2 169.3 H, ABG HCO3 23.5, ABG Total CO2 24.8, ABG O2 Saturation 99, ABG Base Excess -1.8, Uriel Test Acceptable, Vent Rate 16, PEEP 8 09/04/22 16:44: POC Glucose 125 H 09/04/22 21:01: POC Glucose 187 H 09/05/22 06:28: WBC 8.1, RBC 3.45 L D, Hgb 9.8 L D, Hct 30.0 L, MCV 86.8, MCH 28.4, MCHC 32.8, RDW 15.5, Plt Count 157, MPV 8.4, Neut % (Auto) 90.7 H, Lymph % (Auto) 6.2 L, [place] % (Auto) 3.0, Eos % (Auto) 0.1, Baso % (Auto) 0.0 L, Neut # (Auto) 7.3, Lymph # (Auto) 0.5 L, [place] # (Auto) 0.2, Eos # (Auto) 0.0, Baso # (Auto) 0.0, Total Counted 100, Neutrophils % (Manual) 93 H, Lymphocytes % (Manual) 5 L, Monocytes % (Manual) 2, Platelet Estimate Normal, RBC Morphology Normal 09/05/22 06:28: Sodium 137, Potassium 3.7 D, Chloride 104, Carbon Dioxide 28, Anion Gap 8.7, BUN 11, Creatinine 0.50 L, Estimated Creat Clear 43, Estimated GFR 121, Est GFR ( Amer) 146 D, Glucose 122 H, Calcium 7.9 L, Total Bilirubin 0.2, AST 28 D, ALT 17 D, Alkaline Phosphatase 48, Total Protein 5.6 L, Albumin 3.2 L D, Globulin 2.4, Albumin/Globulin Ratio 1.3 09/05/22 06:34: POC Glucose 116 H I & O for Labs for Last 24 Hours: Intake & Output 09/02/22 09/03/22 09/04/22 09/05/22 11:59 11:59 11:59 11:59 Intake Total 1100 / 1100 2247 / 2247 Output Total 100 / 100 850 / 850 Balance 1000 / 1000 1397 / 1397 Weight 115 lb 119 lb 9 oz Constitutional: Present no acute distress Head: Present normocephalic Neck: Present normal inspection Respiratory: Present decreased breath sounds Comment:: On BiPAP. Cardiac: Present Reg Rate and Rhythm GI: Present soft; Absent tenderness Extremities: Absent edema Neuro: Present alert and awake Assessment and Plan *Assessment and plan (1) Respiratory failure with hypercapnia: Status: Acute Category: Medical Code(s): J96.92 - Respiratory failure, unspecified with hypercapnia (2) Acute exacerbation of chronic obstructive airways disease: Status: Acute Category: Medical Code(s): J44.1 - Chronic obstructive pulmonary disease with (acute) exacerbation (3) Pneumonia: Status: Acute Qualifiers: Pneumonia type: due to unspecified organism Laterality: bilateral Lung location: lower lobe of lung Qualified Code(s): J18.9 - Pneumonia, unspecified organism Category: Medical Code(s): J18.9 - Pneumonia, unspecified organism (4) Severe sepsis with acute organ dysfunction: Status: Acute Category: Medical Code(s): A41.9 - Sepsis, unspecified organism; R65.20 - Severe sepsis without septic shock (5) COPD (chronic obstructive pulmonary disease): Status: Chronic Qualifiers: COPD type: emphysema Emphysema type: unspecified Qualified Code(s): J43.9 - Emphysema, unspecified Category: Medical Code(s): J44.9 - Chronic obstructive pulmonary disease, unspecified (6) History of breast cancer: Status: Chronic Category: Medical Code(s): Z85.3 - Personal history of malignant neoplasm of breast (7) Debility: Status: Chronic Category: Medical Code(s): R53.81 - Other malaise (8) GERD (gastroesophageal reflux disease): Status: Chronic
--- NOTE | 2022-09-05 09:34 | EXP.PULM.PN ---
Subjective *Date: 09/05/22 *Time: 11:08 Interval history: No acute respiratory events overnight. Patient admits continued improvement in her respiratory symptoms. Pulmonology Exam Inpatient Vital signs and Labs for Last 24 Hours: Temp Pulse Resp BP Pulse Ox FiO2 97.6 F 70 18 120/61 98 30 09/05/22 04:00 09/05/22 06:10 09/05/22 04:00 09/05/22 04:00 09/05/22 06:10 09/05/22 02:11 Laboratory Results - last 24 hr 09/04/22 11:56: POC Glucose 129 H 09/04/22 13:40: Specimen Source Left radial, O2 % 40%, ABG pH 7.37, ABG pCO2 41.6, ABG pO2 169.3 H, ABG HCO3 23.5, ABG Total CO2 24.8, ABG O2 Saturation 99, ABG Base Excess -1.8, Uriel Test Acceptable, Vent Rate 16, PEEP 8 09/04/22 16:44: POC Glucose 125 H 09/04/22 21:01: POC Glucose 187 H 09/05/22 06:28: WBC 8.1, RBC 3.45 L D, Hgb 9.8 L D, Hct 30.0 L, MCV 86.8, MCH 28.4, MCHC 32.8, RDW 15.5, Plt Count 157, MPV 8.4, Neut % (Auto) 90.7 H, Lymph % (Auto) 6.2 L, [place] % (Auto) 3.0, Eos % (Auto) 0.1, Baso % (Auto) 0.0 L, Neut # (Auto) 7.3, Lymph # (Auto) 0.5 L, [place] # (Auto) 0.2, Eos # (Auto) 0.0, Baso # (Auto) 0.0, Total Counted 100, Neutrophils % (Manual) 93 H, Lymphocytes % (Manual) 5 L, Monocytes % (Manual) 2, Platelet Estimate Normal, RBC Morphology Normal 09/05/22 06:28: Sodium 137, Potassium 3.7 D, Chloride 104, Carbon Dioxide 28, Anion Gap 8.7, BUN 11, Creatinine 0.50 L, Estimated Creat Clear 43, Estimated GFR 121, Est GFR ( Amer) 146 D, Glucose 122 H, Calcium 7.9 L, Total Bilirubin 0.2, AST 28 D, ALT 17 D, Alkaline Phosphatase 48, Total Protein 5.6 L, Albumin 3.2 L D, Globulin 2.4, Albumin/Globulin Ratio 1.3 09/05/22 06:34: POC Glucose 116 H I & O for Labs for Last 24 Hours: Intake & Output 09/02/22 09/03/22 09/04/22 09/05/22 23:59 23:59 23:59 23:59 Intake Total 2043 / 2043 1304 / 1304 Output Total 750 / 750 200 / 200 Balance 1293 / 1293 1104 / 1104 Weight 114 lb 15.89 oz 119 lb 9 oz Constitutional: Present moderate distress Head: Present normocephalic and atraumatic ENT: Present normal exam, normal oropharynx and mucous membranes moist Neck: Present normal inspection and full ROM Respiratory: Present wheezes, diminished air movement and able to speak in complete sentences; Absent accessory muscle use or respiratory distress Cardiac: Present Tachycardia and radial pulses present; Absent S1/S2 GI: Present soft and distention; Absent tenderness or guarding Rectal (female): Present deferred (female): Present deferred Skin: Present intact; Absent cyanosis or jaundice Neuro: Present alert, awake and oriented x 3 Extremities: Present normal inspection; Absent clubbing or cyanosis Psychiatric: Present normal affect and cooperative Assessment and Plan *Assessment and plan (1) COPD exacerbation: Status: Acute Category: Medical Code(s): J44.1 - Chronic obstructive pulmonary disease with (acute) exacerbation (2) Respiratory failure with hypercapnia: Status: Acute Qualifiers: Chronicity: acute Qualified Code(s): J96.02 - Acute respiratory failure with hypercapnia Category: Medical Code(s): J96.92 - Respiratory failure, unspecified with hypercapnia (3) Pneumonia: Status: Acute Qualifiers: Laterality: bilateral Lung location: lower lobe of lung Pneumonia type: due to unspecified organism Qualified Code(s): J18.9 - Pneumonia, unspecified organism Category: Medical Code(s): J18.9 - Pneumonia, unspecified organism Plan #COPD exacerbation: #Acute hypercarbic respiratory failure: #Community-acquired pneumonia 72-year-old history of COPD from 41% predicted on triple inhaler therapy. Also on chronic stable left pleural effusion. Chest x-ray from admission and bilateral lower lobe prominent increasing interstitial markings with no dense consolidation noted., Early pneumonia/volume overload. Labs personally reviewed, neutrophilic leukocytosis on admission, improving. ABG showed se
--- NOTE | 2022-09-05 11:24 | HMH.OTEV ---
OT Inpatient Evaluation Rehab OT IP Evaluation Start: 09/05/22 09:46 Freq: ONCE Status: Complete Protocol: Document 09/05/22 11:15 DEE (Rec: 09/05/22 11:24 [id number] Rehab OT IP Assessment Subjective History Pt oriented x 3 on arrival. Pt agreeable to engage in therapy evaluation. Pt was admitted via ED on 09/04/22 due to SOB. Pt reports prior to being in the hospital she lived at home with her . She explains her is not in the best health and requires some assistance with daily activities. Pt claims she was independent with all ADLs and IADLs. She did use a cane during ambulation. Pt reports she no longer drove. She lives in a trailor with a ramp to enter. Pt expresses concern about her living situation at this time. She reports her has brought 11 cats in the home and she is allergic to cats. She also claims he does not care well for the animal and she ends up having to take care of the animals. She also expresses concern about her possibly having confusion. She is afraid if she returns home [facility] due to her living situation. Subjective I don't really know if I can go back home. Objective Patient Orientation Person,Place,Birthday Upper Extremity Gross ROM WFL Bed Mobility bed mobility-scooting,bed mobility - supine/sit,bed mobility - rolling Assist Level Contact Guard/Hand Hold Transfer Training Sit/Stand Transfer Assist Level Contact Guard/Hand Hold Chair Transfer Ability Contact Guard/Hand Hold Chair Transfer Technique Sit to/from Ambulatory Chair Transfer Assistive Devices Straight Cane,Rolling Walker Rehab OT IP prob,goals,plan Problems Date of Evaluation: 09/05/22 OT IP Problems
--- NOTE | 2022-09-05 11:42 | HMH.PTEV ---
Physical Therapy Evaluation Rehab PT IP Evaluation Start: 09/05/22 09:46 Freq: ONCE Status: Active Protocol: Document 09/05/22 11:28 SHANNA (Rec: 09/05/22 11:42 SHANNA [id number]) Subjective/History History History Patient is a 72 year old female admitted to [facility] via ER 09/04/22 with acute exacerabation of chronic obstructive airway disease, respiratory failure and severe sepsis. Patient brought to ER via EMS with complaints of asthma attack. Patient currently lives at home with her . Previously ambulatory with [facility]. Patient reports that her has 11 cats in the home that she has to care for secondary to husbands health conditions. Patient reports that she is allergic to cats. Patient reports that she uses bi-pap at home while sleeping. Supplemental O2 used at home 1L at all times. Subjective Subjective I know if I go home, I'll just end up right back in the hospital. Rehab PT IP Eval Objective Appearance Patient Behavior Appropriate,Cooperative Patient Orientation Person,Place,Birthday Difficulty following instructions none Speech Pattern Clear,Appropriate Ambulation Patient Able to Ambulate Yes Ambulation Observation IP General Gait Pattern Observation No Deviations/Normal Ambulation Distance (feet) 5 Ambulation Assistive Device None Ambulation Ability Contact Guard/Hand Hold Balance Ability to Arise Able, uses arms to help Sitting Balance Steady, safe Standing Balance Steady, wide stance Dynamic Sitting Balance Ability Normal Dynamic Standing Balance Ability Normal Transfers Bed Transfer Ability Contact Guard/Hand Hold Chair Transfer Ability Contact Guard/Hand Hold Sit to Stand Bed Transfer Ability Contact Guard/Hand Hold ROM All Extremities PT ROM Status WFL MMT All Extremities PT MMT WFL Rehab PT IP prob,goals,plan Problems Date of Evaluation: 09/05/22 PT IP Problems Gait,Safety Rehab Potential Rehab Potential Good Equipmen
--- NOTE | 2022-09-05 12:43 | SW/DCPLANNER ---
Addendum entered by Hannah Banegas 09/05/22 14:53: Hannah Hill has started a precert on this patient. Addendum entered by Hannah Banegas 09/05/22 13:39: Hannah Hill is currently reviewing patient information and will onsite evaluate this patient today. Original Note: I spoke with this patient regarding plans once medically stable for discharge. Patient stated that she resides at home with her and 11 cats. Patient states that she feels very weak at this time. PT/OT evaluated this patient today and recommended SNF level of care at time of discharge. Patient is agreeable to short term placement for rehab at [facility] or [facility] in [place]. Patient information will be faxed to both facilities and patient will require a precert once finding an accepting facility. I have updated Dr Lentz that I am currently searching for placement for this patient. I will continue to update MD and patient.
[2022-09-05 14:28] LABS: POC Glucose,Bedside 119 (70-110)
--- NOTE | 2022-09-05 18:01 | PC.NURSE ---
VS stable, patient able to wean to room air but then required 2LNC for feeling a little sob. Patient able to tolerate sitting in chair for a couple hours of the day. Lungs on ascultation sound slightly wheezy throughout but patient states she feels better than before. No other complaints noted.
[2022-09-05 22:16] LABS: POC Glucose,Bedside 143 (70-110)
[2022-09-06] VITALS (7 sets, daily range): BP systolic 145–164; BP diastolic 66–74; PULSE 73–83; RESP 16–18; TEMP 36.6–36.8; O2SAT 96–99; BMI 22.5
[2022-09-06 01:27] LABS: POC Glucose,Bedside 133 (70-110)
--- NOTE | 2022-09-06 01:51 | PC.NURSE ---
iv to right wrist/forearm infiltrated and discontinued without difficulty, catheter intact; iv to LAC leaking, discontinued without difficulty, catheter intact, restarted iv to left forearm x1 stick #[id number], pt tolerated well. resumed fluids at 50ml/hr for mild UE edema noted.
--- NOTE | 2022-09-06 04:40 | PC.NURSE ---
pt awake most of the night, no complaints, no acute distress, VSS, 02 at 2L pnc with 02 sats 96%, lung sounds diminished, f/c to bsd with clear yellow urine noted, pt is alert and oriented x4, skin pwd with 1+ edema noted to BUE, pt unable to produce sputum for specimen at this time, no other issues or concerns noted
[2022-09-06 06:35] LABS: POC Glucose,Bedside 94 (70-110)
--- NOTE | 2022-09-06 10:06 | DIET.NUTRFU ---
Pt with continued improvement in her respiratory symptoms per MD Progress note. Pt with some improvement in PO intake consuming 50% of dinner last night. Will continue to monitor and offer nutrition supplements if intake improvement does not continue. Will offer nutrition education at appropriate time.
[2022-09-06 11:38] LABS: POC Glucose,Bedside 90 (70-110)
--- NOTE | 2022-09-06 11:59 | P.PN_ITS ---
Subjective *Date: 09/06/22 *Time: 11:59 Interval history: The patient is stable from a respiratory status perspective. Arrangements have been made for her to be transferred to [place]. She feels she is comfortable with that plan. She states that she did not sleep well last night. Medical Exam Vital signs and Labs for Last 24 Hours: Temp Pulse Resp BP Pulse Ox FiO2 98.2 F 73 18 164/66 H 99 30 09/06/22 08:00 09/06/22 10:43 09/06/22 08:00 09/06/22 08:00 09/06/22 08:00 09/05/22 02:11 Laboratory Results - last 24 hr 09/05/22 11:50: POC Glucose 119 H 09/05/22 16:09: POC Glucose 133 H 09/05/22 21:17: POC Glucose 143 H 09/06/22 06:25: POC Glucose 94 09/06/22 11:30: POC Glucose 90 I & O for Labs for Last 24 Hours: Intake & Output 09/03/22 09/04/22 09/05/22 09/06/22 11:59 11:59 11:59 11:59 Intake Total 1100 / 1100 2367 / 2367 2621 / 2621 Output Total 100 / 100 850 / 850 1950 / 1950 Balance 1000 / 1000 1517 / 1517 671 / 671 Weight 115 lb 119 lb 9 oz 122 lb 4.8 oz Microbiology Reports for the Last 24 Hours: Microbiology 09/04/22 02:36 Blood Blood Culture - Preliminary NO GROWTH AFTER 48 HOURS 09/04/22 02:36 Blood Blood Culture - Preliminary NO GROWTH AFTER 48 HOURS Neck: Present normal inspection Respiratory: Present decreased breath sounds and wheezes (Minimal) Cardiac: Present Reg Rate and Rhythm GI: Present soft; Absent tenderness Rectal (female): Present deferred (female): Present deferred Extremities: Absent edema Skin: Present intact Neuro: Present alert, awake and oriented x 3 Additional Findings:: Chest x-ray and lab reviewed. Assessment and Plan *Assessment and plan (1) Respiratory failure with hypercapnia: Status: Acute Qualifiers: Chronicity: acute Qualified Code(s): J96.02 - Acute respiratory failure with hypercapnia Category: Medical Code(s): J96.92 - Respiratory failure, unspecified with hypercapnia (2) COPD exacerbation: Status: Acute Category: Medical Code(s): J44.1 - Chronic obstructive pulmonary disease with (acute) exacerbation (3) History of breast cancer: Status: Chronic Category: Medical Code(s): Z85.3 - Personal history of malignant neoplasm of breast (4) GERD (gastroesophageal reflux disease): Status: Chronic Category: Medical Code(s): K21.9 - Gastro-esophageal reflux disease without esophagitis (5) Sepsis: Status: Acute Qualifiers: Sepsis acute organ dysfunction status: unspecified Sepsis type: sepsis due to unspecified organism Qualified Code(s): A41.9 - Sepsis, unspecified organism Category: Medical Code(s): A41.9 - Sepsis, unspecified organism (6) Pneumonia: Status: Acute Qualifiers: Laterality: left Lung location: unspecified part of lung Pneumonia type: due to unspecified organism Qualified Code(s): J18.9 - Pneumonia, unspecified organism Category: Medical Code(s): J18.9 - Pneumonia, unspecified organism (7) Hypokalemia: Status: Acute Category: Medical Code(s): E87.6 - Hypokalemia Plan Discharge arrangements will be made.
[2022-09-06 12:01] LABS: Coronavirus 19, PCR Not Detected (NotDetected); Influenza A, PCR Not Detected (NotDetected); Influenza B, PCR Not Detected (NotDetected)
--- NOTE | 2022-09-06 12:12 | EXP.DC.SUM ---
General Admission date:: 09/04/22 HPI HPI HPI: Ms. Guillen is a 72-year-old female with a history of oxygen dependent COPD and asthma. She stated she had had some shortness of breath the past few days prior to admission. She was sitting on the toilet at home when she had what felt like an asthma attack. She could not breathe and her grandson called 911. She stated she remembered them arriving at her home and did not remember anything else until waking up in the hospital. According to the ER note, she was brought in by EMS on 4 L of nasal oxygen. They gave her 1 DuoNeb treatment in route. When she arrived at the emergency room, she was diaphoretic, obtunded, tachypneic, and had labored breathing. She could not respond to any commands. Her white blood cell count was initially elevated and her blood gas initially showed a pH of 7.04 with a PCO2 of 104.1 and a PO2 of 79.6. Her HCO3 was 27.5. Her lactic acid was elevated as was her initial troponin. COVID testing was negative. She was admitted and placed on BiPAP and was improved the following morning, awake and alert and answering questions. She remained stable through the remainder of her hospital course: Her chest x-ray showed a patchy infiltrate on the right on admission. Her white count went from 13.1-8.1 over the course of her hospitalization. Hemoglobin went from 12.1 on admission to 9.8 at the time of discharge. This is probably dilutional. She was approved for placement at [facility]. It was felt that she would benefit from rehab there. She was clinically stable for discharge on 101. Hospital Course Hospital Course Hospital Course: As described above. Exam Data for Last 24 hours Vital signs and Labs for Last 24 Hours: Temp Pulse Resp BP Pulse Ox FiO2 98.2 F 73 18 164/66 H 99 30 09/06/22 08:00 09/06/22 10:43 09/06/22 08:00 09/06/22 08:00 09/06/22 08:00 09/05/22 02:11 Laboratory Results - last 24 hr 09/05/22 11:50: POC Glucose 119 H 09/05/22 16:09: POC Glucose 133 H 09/05/22 21:17: POC Glucose 143 H 09/06/22 06:25: POC Glucose 94 09/06/22 11:30: POC Glucose 90 09/06/22 11:38: SARS-CoV-2 (PCR) Not detected, Influenza A Untype (PCR) Not detected, Influenza Type B (PCR) Not detected I & O for Last 24 hours: Intake & Output 09/04/22 09/05/22 09/06/22 09/07/22 11:59 11:59 11:59 11:59 Intake Total 1100 / 1100 2367 / 2367 2621 / 2621 Output Total 100 / 100 850 / 850 1950 / 1950 Balance 1000 / 1000 1517 / 1517 671 / 671 Weight 115 lb 119 lb 9 oz 122 lb 4.8 oz Microbiology Reports for the Last 24 Hours: Microbiology 09/04/22 02:36 Blood Blood Culture - Preliminary NO GROWTH AFTER 48 HOURS 09/04/22 02:36 Blood Blood Culture - Preliminary NO GROWTH AFTER 48 HOURS Constitutional Constitutional: no acute distress *Routine HEENT Exam Head: Present normocephalic ENT: Present mucous membranes moist *Routine Neck Exam Neck: Present full ROM; Absent JVD Routine Chest/Breast/Axilla Exam Chest wall: Absent tenderness Axillae: Absent lymphadenopathy *Routine Respiratory Exam Respiratory: Present decreased breath sounds; Absent wheezes *Routine Cardiovascular Exam Cardiovascular: Present RRR *Routine Abdominal Exam Abdominal: Present soft; Absent tenderness *Routine Rectal Exam Patient deferred: digital exam (Deferred) *Routine Exam Patient deferred: external exam (Deferred) *Routine Extremities Exam Extremities: Absent edema Routine Back/Spine/Pelvis Exam Back/Spine: Present full ROM *Routine Skin Exam Skin: Present intact *Routine Neurological Exam Neurological: Present alert and oriented X3; Absent motor deficit Routine Psychiatric Exam Psychiatric: Present normal affect Results Data Completed and Pending Labs on day of discharge: Labs from last 24 hours 09/06/22 09/06/22 09/06/22 11:38 11:30 06:25 POC Glucose 90 94 SARS-CoV-2 (PCR) Not detected
--- NOTE | 2022-09-06 14:42 | PC.NURSE ---
Notified patients daughter of patient transfer. Report called to Tiesha at [facility], ems called for transport.
== END 2022-09-06 15:20 | DRG 189 ==
LOC: ER 03:33 → 2ND 05:08
PROVIDERS: Family Medicine; Internal Medicine Pulmonary Disease; Admitting Provider Family Medicine; Emergency Provider Emergency Medicine; PCP Family Medicine; Visit Provider Family Medicine
DX: J96.02 Acute respiratory failure with hypercapnia (principal); J18.9 Pneumonia, unspecified organism; J43.9 Emphysema, unspecified; F41.9 Anxiety disorder, unspecified; M19.90 Unspecified osteoarthritis, unspecified site; K21.9 Gastro-esophageal reflux disease without esophagitis; Z85.3 Personal history of malignant neoplasm of breast; M79.7 Fibromyalgia; I10 Essential (primary) hypertension; F17.210 Nicotine dependence, cigarettes, uncomplicated; E87.6 Hypokalemia; Z99.81 Dependence on supplemental oxygen
CPT/HCPCS: 36415; 51702; 71045; 80048; 80053; 81001; 82009; 82803; 82962; 83036; 83605; 84145; 84484; 85007; 85025; 87040; 93005; 93306; 94640; 94761; 97116; 97163; 97166; 97530; 99291; C9803; J1956; U0003; U0005

== ENCOUNTER 2022-11-20 05:25 | Observation (INO) | payer MEDICARE, MEDICAID, SELFPAY ==
[2022-11-20] VITALS (17 sets, daily range): BP systolic 127–159; BP diastolic 60–79; PULSE 74–103; RESP 16–24; TEMP 36.4–38.8; O2SAT 95–99; BMI 22.6; BMI 21.4
--- NOTE | 2022-11-20 05:53 | CT_ITS ---
FINAL REPORT TECHNIQUE: Postcontrast axial images through the abdomen and pelvis were performed. This study was performed with techniques to keep radiation doses as low as reasonably achievable, (ALARA). Individualized dose reduction techniques using automated exposure control or adjustment of mA and/or kV according to the patient's size were employed. CLINICAL HISTORY: ABD Pain, gross hematuria FINDINGS: Abdomen: There are right base opacities, may represent atelectasis or pneumonia. The liver is normal in size and attenuation. The patient is status post cholecystectomy. The spleen is unremarkable. The adrenals are normal. The pancreas is unremarkable. The bilateral renal cysts are identified. There is moderate vascular calcification. The aorta is normal in caliber. No free fluid or adenopathy is identified. There is no hydronephrosis. Pelvis: The appendix is not identified. A Roblero catheter is present. There is diffuse bladder wall thickening with surrounding stranding. The appearance is worrisome for cystitis. Patient is status post hysterectomy. There are several sigmoid diverticula. No free fluid, free air, abscess or adenopathy is identified. IMPRESSION: Findings worrisome for cystitis. Reviewed, Interpreted and Dictated by Roberto Carlos Conley III, MD Transcribed by Uzma Ham Authenticated and [facility]
--- NOTE | 2022-11-20 05:54 | CT_ITS ---
FINAL REPORT CLINICAL HISTORY: Fall FINDINGS: Axial images of the head were obtained without contrast. Coronal reformatted images were also obtained.This study was performed with techniques to keep radiation doses as low as reasonably achievable (ALARA). Individualized dose reduction techniques using automated exposure control or adjustment of mA and/or kV according to the patient's size were employed. There is no evidence of intracranial hemorrhage or mass. The ventricular size is within normal limits. There is no evidence of shift of the midline structures. No abnormal extra axial fluid collection is identified. No skull abnormality is seen on the bone window images. There is mucosal thickening of multiple sinuses. IMPRESSION: No acute intracranial abnormality. Reviewed, Interpreted and Dictated by Roberto Carlos Conley III, MD Transcribed by Uzma Ham Authenticated and [facility]
--- NOTE | 2022-11-20 05:55 | XR_ITS ---
FINAL REPORT CLINICAL HISTORY: Fall FINDINGS: SINGLE-VIEW CHEST The heart size is normal. The mediastinum is normal. Note is made of a right chest port. There is mild scarring. The lungs are otherwise clear. There is no pneumothorax. IMPRESSION: No acute cardiopulmonary process. Reviewed, Interpreted and Dictated by Roberto Carlos Conley III, MD Transcribed by Uzma Ham Authenticated and . [facility]
--- NOTE | 2022-11-20 05:55 | CT_ITS ---
FINAL REPORT CLINICAL HISTORY: Fall FINDINGS: Axial CT images of the cervical spine were obtained without contrast. Sagittal and coronal reformatted images were also obtained. This study was performed with techniques to keep radiation doses as low as reasonably achievable (ALARA). Individualized dose reduction techniques using automated exposure control or adjustment of mA and/or kV according to the patient's size were employed. There is no evidence of fracture or dislocation. There are moderate degenerative changes in the lower cervical spine with multilevel osteophytes and facet arthropathy. Right jugular deep line is present. There is emphysema and scarring in the lung apices. There is presumed postop change in right C6. IMPRESSION: Degenerative changes without acute process. Reviewed, Interpreted and Dictated by Roberto Carlos Conley III, MD Transcribed by Uzma Ham Authenticated and [facility]
--- NOTE | 2022-11-20 05:56 | XR_ITS ---
FINAL REPORT CLINICAL HISTORY: Fall FINDINGS: Pelvis A single view was obtained. There is no acute fracture or dislocation. The joint spaces appear normal. A Roblero catheter is present. There is residual contrast in the renal collecting systems, ureters, and bladder. There is a moderate to large amount of retained stool throughout the colon. Postoperative changes seen in the right abdomen. IMPRESSION: Stool burden as above. Reviewed, Interpreted and Dictated by Roberto Carlos Conley III, MD Transcribed by Uzma Ham Authenticated and [facility]
[2022-11-20 05:59] LABS: Coronavirus 19, PCR Not Detected (NotDetected); Influenza A, PCR Not Detected (NotDetected); Influenza B, PCR Not Detected (NotDetected)
[2022-11-20 06:11] LABS: Chloride 100 mmol/L (98-107); Potassium 4.2 mmoL/L (3.5-5.1); Sodium 137 mmol/L (136-145)
[2022-11-20 06:14] LABS: Alanine Aminotransferase 17 U/L (12-78); Albumin Level 3.8 g/dl (3.5-5.0); Albumin/Globulin Ratio 1.4 (1.1-1.8); Alkaline Phosphatase 63 U/L (38-126); Anion Gap 9.2 mEq/L (5-15); Aspartate Amino Transferase 42 U/L (14-36); Bilirubin,Total 0.8 mg/dl (0.2-1.3); Blood Urea Nitrogen 7 mg/dl (7-17); Carbon Dioxide 32 mmol/L (22.0-30.0); Creatinine Clearance Estimated 40 mL/min (50-200); Estimated Glomerular Filt Rate 82 ml/min (>60); GFR (African American) 99 ML/MIN (>60); Globulin 2.7 g/dL (1.3-3.2); Total Protein,Serum 6.5 g/dl (6.3-8.2)
[2022-11-20 06:15] LABS: Calcium 8.6 mg/dl (8.4-10.2); Glucose 107 mg/dl (74-100); Lactic Acid 0.7 mmol/L (0.7-2.1)
[2022-11-20 06:20] LABS: Basophils % 0.3 % (0.1-2.0); Eosinophils # 0.1 K/mm3 (0.0-0.4); Eosinophils % 0.6 % (0.1-12.0); Hematocrit 37.1 % (37.0-47.0); Hemoglobin 11.5 g/dL (12.2-16.2); Lymphocytes # 1.3 K/mm3 (0.7-4.5); Lymphocytes % 10.3 % (10-50); Mean Corpuscular Hemoglobin 28.1 pg (27.0-31.2); Mean Corpuscular Volume 90.8 fl (81-99); Mean Platelet Volume 7.7 fl (7.4-10.4); Monocytes # 0.7 K/mm3 (0.1-1.0); Monocytes % 5.4 % (1.7-9.3); Neutrophils # 10.7 K/mm3 (1.8-7.8); Neutrophils % 83.4 % (37.0-80.0); Platelet Count 260 K/mm3 (142-424); Red Blood Count 4.09 M/mm3 (4.20-5.40); Red Cell Distribution Width 16.2 % (11.5-17.5); White Blood Count 12.9 K/mm3 (4.8-10.8)
[2022-11-20 06:23] LABS: NT Pro Brain Natriuretic Pep. 230 pg/mL (0-125)
[2022-11-20 06:26] LABS: C-Reactive Protein 61.3 mg/L (0-4)
--- NOTE | 2022-11-20 06:28 | HMH.EDFALL ---
Discharge Plan Disposition Patient Disposition: Admitted As Inpatient Chief Complaint: Fall Clinical Impressions Clinical Impression: Acute UTI (urinary tract infection), History of breast cancer, COPD (chronic obstructive pulmonary disease), Cystitis, SIRS (systemic inflammatory response syndrome), Fall Discharge ED Provider: Junaid Hummel HPI General Chief Complaint: Fall Stated Complaint: fall/ neck pain Time Seen by Provider: 11/20/22 06:28 Mode of Arrival: EMS Source of Information: Patient, EMS and Medical Record Limitations: No Limitations Description of Symptoms (Recalled from ER Triage Doc. by RN): pt reportsezequiel has been sick for 5 days and that tonight she slid out of her chair into the floor and hurt her neck. the pt has a hx of neck surgery. pt reports body aches all over and has a hx of breast cancer History of Present Illness HPI Narrative: pt with fall but has fever and pain with urination with blood in urine MD complaint: fall Onset (ago): hour(s) Fall from: standing Fall witnessed: no Place fall occurred: home Loss of consciousness: none Prolonged down time: no Context: tripped/slipped Severity: moderate Associated symptoms (after fall): headache and neck pain Related Data Home Medications Medication Instructions Recorded Confirmed gabapentin 300 mg capsule 600 mg PO BID Pain 09/25/20 11/20/22 sertraline 100 mg tablet 150 mg PO DAILY Depression 06/17/21 09/04/22 fluticasone fur. 200 mcg-umeclid 1 inh inhalation DAILY COPD 09/04/22 11/20/22 62.5 mcg-vilant 25 mcg inhalat.powder (Trelegy Ellipta) albuterol sulfate 90 mcg/actuation 1 inh inhalation Q6HP PRN 11/20/22 11/20/22 aerosol inhaler shortness of breath or wheezing cetirizine 10 mg tablet 10 mg PO DAILY Allergy symptoms 11/20/22 11/20/22 prednisone 20 mg tablet 40 mg PO DAILY Supplement 11/20/22 11/20/22 tramadol 50 mg tablet 50 mg PO BID Pain 11/20/22 11/20/22 Previous Rx's Medication Instructions Recorded esomeprazole magnesium 40 mg 40 mg PO DAILY GERD ##30 08/16/19 granules delayed release for susp metoprolol succinate 50 mg 50 mg PO BID High blood pressure 08/16/19 tablet,extended release 24 hr #60 tabs verapamil 120 mg tablet 120 mg PO BID Hypertension #60 tabs 08/16/19 alprazolam 0.5 mg tablet 0.5 mg PO BIDP PRN Anxiety #60 tabs 09/07/22 Allergies Allergy/AdvReac Type Severity Reaction Status Date / Time benzonatate Allergy Mild SWELLING Verified 11/29/20 13:27 pneumococcal vaccine Allergy Mild ITCHING,TISSUE Verified 11/29/20 13:27 NECROSIS pork derived (porcine) Allergy Unknown Nausea Verified 11/29/20 13:27 Pork/Porcine Containing Allergy Unknown Nausea Verified 11/29/20 13:27 Products PFSH [facility] Disclaimer: The information contained in this section may have been updated after the patient was seen, as this information can be updated by other users. Medical History (Updated 11/20/22 @ 09:06 by Junaid Hummel MD) Anemia Anxiety Arthritis Asthma Breast cancer Chemotherapy adverse reaction COPD (chronic obstructive pulmonary disease) COPD exacerbation Fall Fibromyalgia GERD (gastroesophageal reflux disease) Heel sore History of breast cancer History of gastroesophageal reflux (GERD) Hypertension Pneumonia Pseudomonas pneumonia Respiratory failure with hypercapnia Surgical History (Updated 09/04/22 @ 08:56 by ESTRELLITA Bell) History of appendectomy History of back surgery History of breast biopsy History of colonoscopy History of esophagogastroduodenoscopy (EGD) History of lumpectomy of left breast History of total hysterectomy Social History (Updated 09/04/22 @ 07:04 by Luz Maria Parra RN) Smoking Status: Former smoker pack-years: 36 second hand exposure: Yes alcohol intake: never current occupational status: retired Travel in the last 8 weeks: None household members: spouse housing: house current occupational exposures/hazards: No caffeine
[2022-11-20 06:33] LABS: Microscopic, Urine URINE MICROSCOPIC (MICROSCOPIC); PH,Urine 8.5 (5.0-8.5)
[2022-11-20 06:34] LABS: Appearance,Urine CLOUDY (Clear); Bilirubin,Urine 3+ (Negative); Specific Gravity, Urine 1.015 (1.005-1.030)
[2022-11-20 06:35] LABS: Blood, Urine 4+ (Negative); Color,Urine RED (Yellow); Glucose,Urine (UA) Negative (Negative); Ketones,Urine 3+ (Negative); Leukocyte Esterase,Urine 3+ (Negative); Nitrate,Urine Positive (Negative); Protein,Urine 4+ (Negative); Urobilinogen,Urine >=8.0 EU/dl (0.2)
[2022-11-20 06:37] LABS: RBC,Urine TNTC #/hpf (0-3); Squamous Epithelial Cell,Urine Occasional #/hpf (0-5)
[2022-11-20 06:38] LABS: Amylase 35 U/L (30-110); Lipase 23 U/L (23-300)
[2022-11-20 06:38] LABS: Bacteria,Urine 1+ /lpf
[2022-11-20 06:49] LABS: Erythrocyte Sedimentation Rate 82 mm/hr (0-30)
[2022-11-20 07:17] LABS: Procalcitonin 0.087 ng/mL (0.0-2.0)
--- NOTE | 2022-11-20 07:41 | PC.NURSE ---
GORDON ALVAREZ speaking with Dr. Wang
--- NOTE | 2022-11-20 07:47 | PC.NURSE ---
notified care management of admission, spoke with Ariella
--- NOTE | 2022-11-20 07:58 | PC.NURSE ---
per warehouse puller pt will be boarding in ER at this time
--- NOTE | 2022-11-20 08:06 | PC.NURSE ---
per brew house supervisor pt assigned to room 203
--- NOTE | 2022-11-20 08:27 | PC.NURSE ---
per boathouse keeper pt bed assignment is on hold at this time, r/t room assignment may need to change will keep us updated. Pt boarding in ER
--- NOTE | 2022-11-20 09:03 | PC.NURSE ---
family and pt aware it could be a few more hours or longer before bed assigned on the floor due to bed availability.
--- NOTE | 2022-11-20 11:07 | PC.NURSE ---
PT RESTING IN BED AT THIS TIME. CALL LIGHT WITHIN REACH. BED IN LOWEST POSITION.
--- NOTE | 2022-11-20 12:10 | PC.NURSE ---
Justa Galvan in to see pt.
--- NOTE | 2022-11-20 12:19 | PC.NURSE ---
report to heri purdy rn on second floor, states she send staff down to transport pt.
--- NOTE | 2022-11-20 12:21 | PC.NURSE ---
report received from KEVIN Gutierrez, RN
--- NOTE | 2022-11-20 12:27 | PC.NURSE ---
pt sitting up eating lunch
--- NOTE | 2022-11-20 12:30 | EXP.HP ---
History of Present Illness *Admission Date: 11/20/22 *History of present illness: Ms. Chappell is a 72-year-old female who has been feeling poorly for the past 5 days. She has had lower abdominal pain and some burning with urination and thought she may have a UTI. Early this morning she slid out of the chair and hit the floor with her head her left side and landed on her right elbow. She was complaining of some neck pain after the fall. She also reported diffuse body aches and presented to the emergency room for further evaluation. In the ER, she was found to have a fever and blood in the urine. It was felt she did have a UTI and was started on some antibiotics. She was admitted for further evaluation and treatment. [facility] Disclaimer: The information contained in this section may have been updated after the patient was seen, as this information can be updated by other users. Medical History Anemia Anxiety Arthritis Asthma Breast cancer Chemotherapy adverse reaction COPD (chronic obstructive pulmonary disease) COPD exacerbation Fall Fibromyalgia GERD (gastroesophageal reflux disease) Heel sore History of breast cancer History of gastroesophageal reflux (GERD) Hypertension Pneumonia Pseudomonas pneumonia Respiratory failure with hypercapnia Surgical History History of appendectomy History of back surgery History of breast biopsy History of colonoscopy History of esophagogastroduodenoscopy (EGD) History of lumpectomy of left breast History of total hysterectomy Family History Coronary artery disease Cancer Stroke Social History (Updated 11/20/22 @ 12:40 by Mariah Flores RN) Smoking Status: Former smoker pack-years: 36 second hand exposure: Yes alcohol intake: never current occupational status: retired Travel in the last 8 weeks: None household members: spouse housing: house current occupational exposures/hazards: No caffeine: Yes Review of Systems Constitutional Constitutional: Reports body ache(s), Reports fatigue, Reports fever(s), Denies headache(s) and Reports weakness Eyes Eyes: Denies blurry vision and Denies diplopia ENT Ears, Nose, Mouth, and Throat: Denies headache(s), Denies nasal congestion, Denies sore throat and Denies vertigo *Cardiovascular Cardiovascular: Reports chest pain, Denies dyspnea and Denies leg edema *Respiratory Respiratory: Reports cough and Denies dyspnea *Gastrointestinal Gastrointestinal: Denies abdominal pain, Denies loose stools, Denies nausea and Denies vomiting *Genitourinary Genitourinary: Denies difficulty voiding and Reports dysuria *Musculoskeletal Musculoskeletal: Reports arthralgias (right elbow), Reports back pain and Reports myalgias *Neurologic Neurologic: Denies headache(s), Denies vertigo and Reports weakness Endocrine Endocrine: Reports fatigue Meds Home Medications and Allergies Home Medications Medication Instructions Recorded Confirmed Type esomeprazole magnesium 40 mg 40 mg PO DAILY GERD ##30 08/16/19 11/20/22 Rx granules delayed release for susp metoprolol succinate 50 mg 50 mg PO BID High blood pressure 08/16/19 11/20/22 Rx tablet,extended release 24 hr #60 tabs verapamil 120 mg tablet 120 mg PO BID Hypertension #60 tabs 08/16/19 11/20/22 Rx gabapentin 300 mg capsule 600 mg PO BID Pain 09/25/20 11/20/22 History sertraline 100 mg tablet 150 mg PO DAILY Depression 06/17/21 11/20/22 History fluticasone fur. 200 mcg-umeclid 1 inh inhalation DAILY COPD 09/04/22 11/20/22 History 62.5 mcg-vilant 25 mcg inhalat.powder (Trelegy Ellipta) alprazolam 0.5 mg tablet 0.5 mg PO BIDP PRN Anxiety #60 tabs 09/07/22 11/20/22 Rx albuterol sulfate 90 mcg/actuation 1 inh inhalation Q6HP PRN 11/20/22 11/20/22 History aerosol inhaler shortness of breath or wheezing cetirizine
--- NOTE | 2022-11-20 13:13 | PC.NURSE ---
arrived to floor by stretcher from ED
[2022-11-21] VITALS (9 sets, daily range): BP systolic 121–138; BP diastolic 54–68; PULSE 57–76; RESP 17–20; TEMP 36.4–36.7; O2SAT 97–100; BMI 22.7
--- NOTE | 2022-11-21 04:25 | PC.NURSE ---
NO ACUTE CHANGES SINCE PREVIOUS ASSESSMENT. PT HAS RESTED WELL THIS SHIFT. LUNG SOUNDS REMAIN WET WITH RHONCHI IN THE LOWER LOBES. REMAINS ON 2L AND IS TOLERATING WELL. LOPEZ REMAINS IN PLACE. DRAINAGE IS LESS BLOODY AND IS MORE BRIGHT ORANGE IN COLOR. PT HAS C/O BACK PAIN X2 THIS SHIFT AND HAS BEEN MEDICATED PER MAR WITH ADEQUATE RELIEF. PT STATES THAT SHE IS FEELING SOME BETTER. VSS. CALL [facility] WITHIN REACH.
[2022-11-21 07:45] LABS: Basophils % 0.4 % (0.1-2.0); Eosinophils # 0.2 K/mm3 (0.0-0.4); Eosinophils % 3.4 % (0.1-12.0); Hematocrit 30.8 % (37.0-47.0); Hemoglobin 9.7 g/dL (12.2-16.2); Lymphocytes # 1.2 K/mm3 (0.7-4.5); Lymphocytes % 24.5 % (10-50); Mean Corpuscular HGB Conc 31.6 g/dL (31.8-35.4); Mean Corpuscular Hemoglobin 28.4 pg (27.0-31.2); Mean Corpuscular Volume 89.7 fl (81-99); Mean Platelet Volume 7.7 fl (7.4-10.4); Monocytes # 0.3 K/mm3 (0.1-1.0); Monocytes % 5.1 % (1.7-9.3); Neutrophils # 3.4 K/mm3 (1.8-7.8); Neutrophils % 66.6 % (37.0-80.0); Platelet Count 192 K/mm3 (142-424); Red Blood Count 3.43 M/mm3 (4.20-5.40); Red Cell Distribution Width 16.1 % (11.5-17.5)
[2022-11-21 07:47] LABS: Chloride 108 mmol/L (98-107); Potassium 3.8 mmoL/L (3.5-5.1); Sodium 139 mmol/L (136-145)
[2022-11-21 07:50] LABS: Anion Gap 7.8 mEq/L (5-15); Blood Urea Nitrogen 4 mg/dl (7-17); Carbon Dioxide 27 mmol/L (22.0-30.0); Creatinine Clearance Estimated 42 mL/min (50-200); Estimated Glomerular Filt Rate 121 ml/min (>60); GFR (African American) 146 ML/MIN (>60)
[2022-11-21 07:51] LABS: Calcium 7.5 mg/dl (8.4-10.2); Glucose 93 mg/dl (74-100)
--- NOTE | 2022-11-21 07:59 | EXP.ACUTE.PN ---
Subjective *Date: 11/21/22 *Time: 07:59 Interval history: Patient feels a little better this morning. Medical Exam Vital signs and Labs for Last 24 Hours: Vital Signs Temp Pulse Pulse Resp BP BP Pulse Ox 11/21/22 05:40 59 L 11/21/22 05:40 62 11/21/22 05:40 99 11/21/22 04:00 97.6 F 63 18 137/57 L 97 11/21/22 00:00 97.9 F 76 20 131/54 L 98 11/20/22 23:33 81 11/20/22 23:33 84 11/20/22 20:00 97.7 F 80 20 139/79 96 11/20/22 17:31 75 11/20/22 17:31 78 11/20/22 17:31 98 11/20/22 15:26 97.6 F 76 18 127/67 98 11/20/22 13:10 98.9 F 75 16 135/73 11/20/22 13:18 97.6 F 75 18 131/67 98 11/20/22 11:30 74 20 140/68 98 11/20/22 11:00 74 18 141/66 H 99 11/20/22 10:30 78 18 142/67 H 98 11/20/22 10:00 77 18 142/65 H 99 11/20/22 09:30 80 18 147/70 H 99 11/20/22 09:00 81 24 136/63 98 11/20/22 08:30 90 22 157/69 H 98 11/20/22 08:00 91 H 20 151/60 H 98 Intake and Output 11/20/22 11/20/22 11/21/22 15:59 23:59 07:59 Intake Total 0 / 614 614 / 614 1210 / 1210 Output Total 500 / 950 300 / 950 300 / 300 Balance -500 / -336 314 / -336 910 / 910 Intake: Intake, Oral Amount 0 / 240 240 / 240 Intake, Total IV Amount 374 / 374 1210 / 1210 0.9 % Sodium Chloride 1,000 ml 374 / 374 1210 / 1210 @ 100 mls/hr IV .Q10H [facility] Rx#: [id number] Output: Output, Urine Amount 500 / 800 300 / 800 0 / 0 Output, Urine Amount (Catheter) 300 / 300 Roblero 300 / 300 Other: Number of Unmeasured Voids 0 0 0 Weight 109 lb 8 oz 116 lb Patient Weight 11/21/22 23:59 Weight 116 lb Laboratory Results - last 24 hr 11/21/22 06:45: WBC 5.0 D, RBC 3.43 L, Hgb 9.7 L, Hct 30.8 L, MCV 89.7, MCH 28.4, MCHC 31.6 L, RDW 16.1, Plt Count 192 D, MPV 7.7, Neut % (Auto) 66.6, Lymph % (Auto) 24.5, [place] % (Auto) 5.1, Eos % (Auto) 3.4, Baso % (Auto) 0.4, Neut # (Auto) 3.4, Lymph # (Auto) 1.2, [place] # (Auto) 0.3, Eos # (Auto) 0.2, Baso # (Auto) 0.0 I & O for Labs for Last 24 Hours: Intake & Output 11/18/22 11/19/22 11/20/22 11/21/22 23:59 23:59 23:59 23:59 Intake Total 614 / 614 1210 / 1210 Output Total 800 / 950 300 / 300 Balance -186 / -336 910 / 910 Weight 109 lb 8 oz 116 lb Microbiology Reports for the Last 24 Hours: Microbiology 11/20/22 05:40 Urine,Clean Catch Urine Culture - Preliminary NO GROWTH AFTER 24 HOURS Constitutional: Present no acute distress Respiratory: Present normal respiratory effort Cardiac: Present Reg Rate and Rhythm GI: Present normal bowel sounds; Absent tenderness Extremities: Present normal inspection and full ROM Skin: Present intact; Absent erythema Neuro: Present Grossly Intact and moves all extremities Assessment and Plan *Assessment and plan (1) Acute UTI (urinary tract infection): Status: Acute Category: Medical Code(s): N39.0 - Urinary tract infection, site not specified (2) SIRS (systemic inflammatory response syndrome): Status: Acute Category: Medical Code(s): R65.10 - Systemic inflammatory response syndrome (SIRS) of non-infectious origin without acute organ dysfunction (3) Fall: Status: Acute Category: Medical Code(s): W19.XXXA - Unspecified fall, initial encounter (4) History of breast cancer: Status: Chronic Category: Medical Code(s): Z85.3 - Personal history of malignant neoplasm of breast (5) GERD (gastroesophageal reflux disease): Status: Chronic Category: Medical Code(s): K21.9 - Gastro-esophageal reflux disease without esophagitis (6) Anxiety: Status: Chronic Category: Medical Code(s): F41.9 - Anxiety disorder, unspecified (7) COPD (chronic obstructive pulmonary disease): Status: Chronic Category: Medical Code(s): J
--- NOTE | 2022-11-21 14:40 | HMH.OTEV ---
OT Inpatient Evaluation Rehab OT IP Evaluation Start: 11/21/22 13:43 Freq: ONCE Status: Active Protocol: Document 11/21/22 14:34 [facility] (Rec: 11/21/22 14:40 [facility] [id number]) Rehab OT IP Assessment Subjective History Pt oriented x 3 on arrival. Pt agreeable to engage in therapy evaluation. Pt was admitted on 11/20/22 via ED with UTI and fall. Prior to being in the hospital, pt lived at home with her and grandson. Pt claims she was independent with all ADLs such as dressing, sponge bathing, and feeding. She explains she was able to do simple light weight cleaning tasks. However, she was dependent upon family to do most IADLs. She no longer drove. She wore oxygen at all times. She used a cane during ambulation. Pt has a past medical history of: Anemia Anxiety Arthritis Asthma Breast cancer Chemotherapy adverse reaction COPD (chronic obstructive pulmonary disease) COPD exacerbation Fall Fibromyalgia GERD (gastroesophageal reflux disease) Heel sore History of breast cancer History of gastroesophageal reflux (GERD) Hypertension Pneumonia Pseudomonas pneumonia Respiratory failure with hypercapnia Subjective I am sore from the fall. Objective Patient Orientation Person,Place,Birthday Upper Extremity Gross ROM WFL Bed Mobility bed mobility-scooting,bed mobility - supine/sit,bed mobility - rolling Assist Level Contact Guard/Hand Hold Transfer Trainin
--- NOTE | 2022-11-21 14:42 | HMH.PTEV ---
Physical Therapy Evaluation Rehab PT IP Evaluation Start: 11/21/22 13:43 Freq: ONCE Status: Active Protocol: Document 11/21/22 14:34 [facility] (Rec: 11/21/22 14:42 [facility] [id number]) Subjective/History History History 72 yowf adm to [facility] for UTI. She reports she lives with her and grandson, she generally is independent with all mobility using a cane. Subjective Subjective Pt reports feeling tired this pm. No c/o pain. Rehab PT IP Eval Objective Appearance Patient Behavior Appropriate Patient Orientation Person,Place,Time Difficulty following instructions none Speech Pattern Clear Ambulation Patient Able to Ambulate Yes Ambulation Observation IP General Gait Pattern Observation Shuffling Step Ambulation Distance (feet) 10 Ambulation Assistive Device None Ambulation Ability Contact Guard/Hand Hold Balance Ability to Arise Able, uses arms to help Sitting Balance Steady, safe Standing Balance Steady, wide stance Dynamic Sitting Balance Ability Good Dynamic Standing Balance Ability Fair Transfers Bed Transfer Ability Contact Guard/Hand Hold Chair Transfer Ability Contact Guard/Hand Hold Sit to Stand Bed Transfer Ability Contact Guard/Hand Hold Sit to Stand Chair Transfer Ability Contact Guard/Hand Hold Rehab PT IP prob,goals,plan Problems Date of Evaluation: 11/21/22 PT IP Problems Bed Mobility,Transfers,Gait Rehab Potential Rehab Potential Good Plan PT Intervention Plan Bed Mobility,Transfers,Gait PT Plan Frequency Daily Duration LOS Discharge Goals Bed Transfer Ability Supervision/Stand by Sit to Stand Chair Transfer Ability Supervision/Stand by Ambulation Assistive Device Straight Cane Ambulation Distance (feet) 30 Discharge Plan PT Discharge Plan Pt is appropriate to return keila once medically stable unless she has a decline in mobility status. Recommend continued home health therapy upon d/c. G -code Required No Eval Complexity Eval Charge Codes 62569 - Moderate Complexity PHYSICIAN CERTIFICATION: I certify the specified therapy services for Linda Chappell are required, authorized, and reviewed every 30 days.
--- NOTE | 2022-11-21 19:34 | PC.NURSE ---
PT IS AOX4, HAS REQUIRED 2LNC FOR O2 SUPPORT. LOPEZ IN PLACE DRAINING ORANGE URINE
[2022-11-22] VITALS (10 sets, daily range): BP systolic 102–152; BP diastolic 50–68; PULSE 55–80; RESP 17–20; TEMP 36.5–36.9; O2SAT 94–98; BMI 23.0
--- NOTE | 2022-11-22 06:29 | PC.NURSE ---
NO ACUTE CHANGES SINCE PREVIOUS ASSESSMENT. PT HAS NOT SLEPT MUCH THIS SHIFT. C/O PAIN X1 THIS SHIFT AND WAS MEDICATED PER MAR FOR PAIN. VSS. LOPEZ REMAINS IN PLACE AND IS DRAINING ADEQUATE AMOUNTS OF BRIGHT ORANGE URINE.
--- NOTE | 2022-11-22 08:55 | EXP.ACUTE.PN ---
Subjective *Date: 11/22/22 *Time: 09:22 Interval history: Patient with no new complaints today. Medical Exam Vital signs and Labs for Last 24 Hours: Vital Signs Temp Pulse Pulse Resp BP Pulse Ox 11/22/22 07:46 98.4 F 68 17 150/60 H 96 11/22/22 05:10 70 11/22/22 05:10 71 11/22/22 05:10 95 11/22/22 04:00 97.9 F 69 18 151/68 H 97 11/22/22 00:36 77 11/22/22 00:36 80 11/22/22 00:00 97.8 F 65 18 152/59 H 98 11/21/22 21:41 97 11/21/22 20:00 98.0 F 61 18 121/58 L 97 11/21/22 15:05 97.6 F 57 L 18 124/54 L 98 11/21/22 11:30 60 11/21/22 11:30 62 11/21/22 11:30 98 11/21/22 11:18 98.0 F 64 17 134/64 100 Intake and Output 11/21/22 11/22/22 11/22/22 23:59 07:59 15:59 Intake Total 360 / 2170 480 / 480 Output Total 200 / 1500 1400 / 1400 Balance 160 / 670 -920 / -920 Intake: Intake, Oral Amount 360 / 960 480 / 480 Output: Output, Urine Amount 200 / 1000 0 / 0 Output, Urine Amount (Catheter) 1400 / 1400 Roblero 1400 / 1400 Other: Number of Unmeasured Voids 0 0 Weight 117 lb 4 oz Patient Weight 11/22/22 23:59 Weight 117 lb 4 oz Laboratory Results - last 24 hr 11/20/22 05:40: Urine Color Red, Urine Appearance Cloudy, Urine pH 8.5, Ur Specific [place] 1.015, Urine Protein 4+, Urine Glucose (UA) Negative, Urine Ketones 3+, Urine Blood 4+, Urine Nitrate Positive A, Urine Bilirubin 3+ A, Urine Urobilinogen >=8.0, Ur Leukocyte Esterase 3+ A, Urine RBC Tntc, Urine WBC 10-20, Ur Squamous Epith Cells Occasional, Urine Bacteria 1+ I & O for Labs for Last 24 Hours: Intake & Output 11/19/22 11/20/22 11/21/22 11/22/22 23:59 23:59 23:59 23:59 Intake Total 614 / 614 2170 / 2170 480 / 480 Output Total 800 / 950 1300 / 1500 1400 / 1400 Balance -186 / -336 870 / 670 -920 / -920 Weight 109 lb 8 oz 115 lb 15.41 oz 117 lb 4 oz Microbiology Reports for the Last 24 Hours: Microbiology 11/20/22 05:15 Blood Blood Culture - Preliminary NO GROWTH AFTER 48 HOURS 11/20/22 05:15 Blood Blood Culture - Preliminary NO GROWTH AFTER 48 HOURS 11/20/22 05:40 Urine,Clean Catch Urine Culture - Preliminary Gram Negative Rods Constitutional: Present no acute distress Respiratory: Present normal respiratory effort Cardiac: Present Reg Rate and Rhythm GI: Present normal bowel sounds; Absent tenderness Extremities: Present normal inspection and full ROM Skin: Present intact; Absent erythema Neuro: Present Grossly Intact and moves all extremities Assessment and Plan *Assessment and plan (1) Acute UTI (urinary tract infection): Status: Acute Category: Medical Code(s): N39.0 - Urinary tract infection, site not specified (2) SIRS (systemic inflammatory response syndrome): Status: Acute Category: Medical Code(s): R65.10 - Systemic inflammatory response syndrome (SIRS) of non-infectious origin without acute organ dysfunction (3) Fall: Status: Acute Category: Medical Code(s): W19.XXXA - Unspecified fall, initial encounter (4) History of breast cancer: Status: Chronic Category: Medical Code(s): Z85.3 - Personal history of malignant neoplasm of breast (5) GERD (gastroesophageal reflux disease): Status: Chronic Category: Medical Code(s): K21.9 - Gastro-esophageal reflux disease without esophagitis (6) Anxiety: Status: Chronic Category: Medical Code(s): F41.9 - Anxiety disorder, unspecified (7) COPD (chronic obstructive pulmonary disease): Status: Chronic Category: Medical Code(s): J44.9 - Chronic obstructive pulmonary disease, unspecified (8) Debility: Status: Chronic Category: Medical Code(s): R53.81 - Other malaise Plan Still no results on urine culture.
--- NOTE | 2022-11-22 16:14 | PC.NURSE ---
NO ACUTE CHANGES THSI SHIFT. STILL REQUIRING 2LNC FOR O2 SUPPORT. LOPEZ CATH IN PLACE DRAINING CLEAR ORANGE URINE.
[2022-11-23] VITALS (8 sets, daily range): BP systolic 136–152; BP diastolic 58–78; PULSE 64–74; RESP 17–18; TEMP 36.6–36.9; O2SAT 94–96; BMI 24.4
--- NOTE | 2022-11-23 08:01 | EXP.ACUTE.PN ---
Subjective *Date: 11/23/22 *Time: 08:13 Interval history: Patient had a good day yesterday, anxious to go home. Medical Exam Vital signs and Labs for Last 24 Hours: Vital Signs Temp Pulse Pulse Resp BP Pulse Ox FiO2 11/23/22 06:40 68 11/23/22 06:40 64 11/23/22 06:40 95 11/23/22 04:00 98.4 F 74 18 152/58 H 94 L 11/23/22 00:00 96 11/23/22 00:00 98.3 F 71 18 138/62 96 11/23/22 00:35 68 11/23/22 00:34 67 11/22/22 19:54 97.7 F 66 20 137/51 L 94 L 11/22/22 18:45 28 11/22/22 18:44 60 11/22/22 18:44 63 11/22/22 15:26 98.3 F 60 17 117/50 L 95 11/22/22 11:50 55 L 11/22/22 11:50 55 L 11/22/22 11:50 97 11/22/22 11:34 98.0 F 58 L 18 102/50 L 97 Intake and Output 11/22/22 11/23/22 11/23/22 23:59 07:59 15:59 Intake Total 991 / 1951 1137 / 1137 Output Total 100 / 2900 900 / 900 Balance 891 / -949 237 / 237 Intake: Intake, Oral Amount 240 / 1200 Intake, Total IV Amount 190 / 190 1137 / 1137 0.9 % Sodium Chloride 1,000 ml 190 / 190 1137 / 1137 @ 100 mls/hr IV .Q10H [facility] Rx#: [id number] Infusion Intake 561 / 561 0.9 % Sodium Chloride 1,000 ml 561 / 561 @ 100 mls/hr IV .Q10H [facility] Rx#: [id number] Output: Output, Urine Amount 100 / 1100 Output, Urine Amount (Catheter) 900 / 900 Roblero 900 / 900 Other: Number of Unmeasured Voids 0 0 Weight 124 lb 8 oz Patient Weight 11/23/22 23:59 Weight 124 lb 8 oz I & O for Labs for Last 24 Hours: Intake & Output 11/20/22 11/21/22 11/22/22 11/23/22 23:59 23:59 23:59 23:59 Intake Total 614 / 614 2170 / 2170 195 / 195 1137 / 1137 Output Total 800 / 950 1300 / 1500 2500 / 2900 900 / 900 Balance -186 / -336 870 / 670 -549 / -949 237 / 237 Weight 109 lb 8 oz 115 lb 15.41 oz 117 lb 4 oz 124 lb 8 oz Microbiology Reports for the Last 24 Hours: Microbiology 11/20/22 05:40 Urine,Clean Catch Urine Culture - Final Escherichia coli 11/20/22 05:15 Blood Blood Culture - Preliminary NO GROWTH AFTER 48 HOURS 11/20/22 05:15 Blood Blood Culture - Preliminary NO GROWTH AFTER 48 HOURS Constitutional: Present no acute distress Respiratory: Present normal respiratory effort Cardiac: Present Reg Rate and Rhythm GI: Present normal bowel sounds; Absent tenderness Extremities: Present normal inspection and full ROM Skin: Present intact; Absent erythema Neuro: Present Grossly Intact and moves all extremities Assessment and Plan *Assessment and plan (1) E. coli UTI: Status: Acute Category: Medical Code(s): N39.0 - Urinary tract infection, site not specified; B96.20 - Unspecified Escherichia coli [E. coli] as the cause of diseases classified elsewhere (2) Acute UTI (urinary tract infection): Status: Acute Category: Medical Code(s): N39.0 - Urinary tract infection, site not specified (3) SIRS (systemic inflammatory response syndrome): Status: Acute Category: Medical Code(s): R65.10 - Systemic inflammatory response syndrome (SIRS) of non-infectious origin without acute organ dysfunction (4) Fall: Status: Acute Category: Medical Code(s): W19.XXXA - Unspecified fall, initial encounter (5) History of breast cancer: Status: Chronic Category: Medical Code(s): Z85.3 - Personal history of malignant neoplasm of breast (6) GERD (gastroesophageal reflux disease): Status: Chronic Category: Medical Code(s): K21.9 - Gastro-esophageal reflux disease without esophagitis (7) Anxiety: Status: Chronic Category: Medical Code(s): F41.9 - Anxiety disorder, unspecified (8) COPD (chronic obstructive pulmonary disease): Status: Chronic Category: Medical Code(s
--- NOTE | 2022-11-23 12:51 | PC.NURSE ---
Multiple attempts have been made to contact patients from hospital phone and pt's personal cell with no answer. Will continue to make attempts. Pt is ready for discharge, just waiting for her ride.
--- NOTE | 2022-11-23 20:10 | PC.NURSE ---
Pts finally came to get pt after attempting to call and get a hold of the him. He brought her a tank for her to be transported home. The tank that he brought was empty. She stated that it is the only portable tank that she has. [facility] is her o2 provider and is closed and unable to bring more o2. I spoke with store warehouse associate and explained situation. We explained to pt that the o2 tank needed to be brought back as soon as they get her home. We have attempted to call multiple times to the phone number on file. The person that answers the phone stated that she was not there and I have the wrong phone number.
--- NOTE | 2022-11-24 22:32 | EXP.DC.SUM ---
General Admission date:: 11/20/22 Discharge date: 11/23/22 HPI HPI HPI: Ms. Chappell is a 72-year-old female who has been feeling poorly for the past 5 days. She has had lower abdominal pain and some burning with urination and thought she may have a UTI. Early this morning she slid out of the chair and hit the floor with her head her left side and landed on her right elbow. She was complaining of some neck pain after the fall. She also reported diffuse body aches and presented to the emergency room for further evaluation. In the ER, she was found to have a fever and blood in the urine. It was felt she did have a UTI and was started on some antibiotics. She was admitted for further evaluation and treatment. Hospital Course Hospital Course Hospital Course: The patient's imaging showed no fracture after her fall, but her abdominal/pelvic CT showed findings worrisome for cystitis. She was running a fever of 101.8 and her white blood cell count was elevated. She was started on IV antibiotics and Tylenol for her fever. She was continued on some of her home medications. She did improve throughout her stay. She was able to eat and drink. Her blood cultures showed no growth, but her urine was growing gram-negative rods. She was continued on IV antibiotics. Her final urine culture was positive for E. coli and she was stable to be discharged home on cefuroxime and will follow up with Dr. Land. Exam Data for Last 24 hours Vital signs and Labs for Last 24 Hours: Temp Pulse Resp BP Pulse Ox FiO2 98.4 F 66 17 136/64 95 28 11/23/22 11:15 11/23/22 11:26 11/23/22 11:15 11/23/22 11:15 11/23/22 11:26 11/22/22 18:45 I & O for Last 24 hours: Intake & Output 11/22/22 11/23/22 11/24/22 11/25/22 11:59 11:59 11:59 11:59 Intake Total 1080 / 1080 2968 / 2968 240 / 240 Output Total 1900 / 1900 3600 / 3600 Balance -820 / -820 -632 / -632 240 / 240 Weight 117 lb 4 oz 124 lb 8 oz Narrative: Constitutional Constitutional: no acute distress *Routine HEENT Exam Head: Present normocephalic and hematoma (forming along the left side of the forehead from fall) Eye: Present EOMI and PERRL ENT: Present mucous membranes dry *Routine Neck Exam Neck: Present supple and full ROM *Routine Respiratory Exam Respiratory: Present CTA bilaterally *Routine Cardiovascular Exam Cardiovascular: Present RRR *Routine Abdominal Exam Abdominal: Present soft, normoactive bowel sounds and tenderness (lower abdomen) *Routine Rectal Exam Rectal:: deferred *Routine Genitalia Exam Genitalia:: deferred *Routine Extremities Exam Extremities: Absent cyanosis, clubbing or edema *Routine Skin Exam Skin: Present intact; Absent erythema Comments: abrasion on the right elbow covered with a dressing *Routine Neurological Exam Neurological: Present alert and oriented X3 Results Data Completed and Pending Labs on day of discharge: Preliminary micro results at discharge 11/20/22 05:15 Blood Culture - Preliminary Blood NO GROWTH AFTER 48 HOURS 11/20/22 05:15 Blood Culture - Preliminary Blood NO GROWTH AFTER 48 HOURS DS: Diagnosis Discharge Diagnosis (1) E. coli UTI: Status: Acute (2) Acute UTI (urinary tract infection): Status: Acute (3) SIRS (systemic inflammatory response syndrome): Status: Acute (4) Fall: Status: Acute (5) History of breast cancer: Status: Chronic (6) GERD (gastroesophageal reflux disease): Status: Chronic (7) Anxiety: Status: Chronic (8) COPD (chronic obstructive pulmonary disease): Status: Chronic (9) Debility: Status: Chronic Meds Home Medications and Allergies Home Medications Medication Instructions Recorded Confirmed Type esomeprazole magnesium 40 mg 40 mg PO DAILY GERD ##30 08/16/19 11/20/22 Rx granules delayed release for susp metoprolol succinate 50 mg 50 mg PO BID High blood pressure 08/16/19 11/20/22 Rx table
--- NOTE | 2022-12-02 15:19 | CARE MANAGER ---
Attempted to contact patient regarding hospital discharge on 11/24/22. No VM option. INDIRA Davis
--- NOTE | 2022-12-09 14:28 | CARE MANAGER ---
Per Dr. Land's request, patient information faxed to [facility] requesting Medicaid [place] services.
== END 2022-11-23 16:28 | disposition home or self-care (01) ==
LOC: ER 06:17 → 2ND 08:02
PROVIDERS: Admitting Provider Family Medicine; Emergency Provider Emergency Medicine; PCP Family Medicine; Visit Provider Family Medicine
DX: N39.0 Urinary tract infection, site not specified (principal); K21.9 Gastro-esophageal reflux disease without esophagitis; F41.9 Anxiety disorder, unspecified; J44.9 Chronic obstructive pulmonary disease, unspecified; R53.81 Other malaise; B96.20 Unspecified Escherichia coli [E. coli] as the cause of diseases classified elsewhere; R06.9 Unspecified abnormalities of breathing; Z20.822 Contact with and (suspected) exposure to COVID-19; Z85.3 Personal history of malignant neoplasm of breast; W07.XXXA Fall from chair, initial encounter; Y92.019 Unspecified place in single-family (private) house as the place of occurrence of the external cause; M54.2 Cervicalgia
CPT/HCPCS: G0378; 36415; 70450; 71045; 72125; 72170; 74177; 80048; 80053; 81001; 82150; 83605; 83690; 83880; 84145; 85025; 85651; 86140; 87040; 87086; 87088; 87186; 94640; 94760; 94761; 97116; 97162; 97166; 99285; C9803; J0696; J1642; Q9967; U0003; U0005

== ENCOUNTER → 2022-12-02 12:47 | Outpatient (CLI) | payer MEDICARE, MEDICAID, SELFPAY ==
--- NOTE | 2022-12-02 12:57 | XR_ITS ---
FINAL REPORT CLINICAL HISTORY: RT SHOULDER PAIN COMPARISON: 06/09/2017 FINDINGS: Right shoulder Three views were obtained. There is no acute fracture or dislocation. There is mild AC joint and glenohumeral joint degenerative change. No soft tissue abnormality is identified. IMPRESSION: Mild degenerative changes, similar to previous. Reviewed, Interpreted and Dictated by Roberto Carlos Conley III, MD Transcribed by Uzma Ham Authenticated and [facility]
== END ==
PROVIDERS: PCP Family Medicine; Visit Provider Family Medicine
DX: M25.511 Pain in right shoulder (principal)
CPT/HCPCS: 73030

== ENCOUNTER → 2023-03-19 14:23 | Outpatient (CLI) | payer MEDICARE, SELFPAY ==
--- NOTE | 2023-03-19 14:26 | MM_ITS ---
PROCEDURE INFORMATION: Exam: MG Bilateral Diagnostic Breast Tomosynthesis Exam date and time: 03/19/2023 2:17 PM Age: 72 years old Clinical indication: Left breast pain; Left breast thickening; Personal history of left breast cancer; Lumpectomy TECHNIQUE: Imaging protocol: Bilateral Diagnostic tomosynthesis and 2D mammography including computer-aided detection (CAD) when performed. Unilateral or bilateral exam. COMPARISON: 1. MG MM clip placement LT 05/11/2019 11:54 AM 2. MG DIG MAMM-SCREEN ANIBAL 04/11/2019 2:32 PM FINDINGS: MAMMOGRAPHY: The breast tissue is composed of scattered areas of fibroglandular density. There is no stellate mass, suspicious architectural distortion or suspicious microcalcifications in either breast to suggest malignancy. A skin marker was placed over an area of palpable concern in left upper inner quadrant. Spot compression views demonstrate predominantly adipose tissue. Architectural distortion laterally with overlying skin thickening is most compatible with post lumpectomy and post radiation change. No r axillary adenopathy. IMPRESSION: Patient to return for left breast ultrasound for full evaluation of the patient's complaint of left upper inner quadrant thickening ASSESSMENT: BI-RADS Category 0: Incomplete- Need Additional Imaging Evaluation and/or Prior Mammograms for Comparison
== END ==
PROVIDERS: PCP Family Medicine; Visit Provider Family Medicine
DX: C50.919 Malignant neoplasm of unspecified site of unspecified female breast; R92.8 Other abnormal and inconclusive findings on diagnostic imaging of breast
CPT/HCPCS: 77062; 77066; G0279

== ENCOUNTER → 2023-04-06 14:17 | Outpatient (CLI) | payer MEDICARE, SELFPAY ==
--- NOTE | 2023-04-06 14:20 | US_ITS ---
PROCEDURE INFORMATION: Exam: US Left Breast, Complete Exam date and time: 04/06/2023 2:28 PM Age: 72 years old Clinical indication: Breast pain; Left; Lt lumpectomy breast cancer. Patient reported left upper inner quadrant breast thickening TECHNIQUE: Imaging protocol: Complete ultrasound of all four quadrants of the left breast and the retroareolar regions, including ultrasound of the axilla when performed. COMPARISON: BREASTLT US breast LT complete 04/11/2019 2:43 PM FINDINGS: Breast: Sonographic images of the left breast including the retroareolar region, all 4 quadrants and the axilla do not demonstrate any solid masses. Minimal subcentimeter cystic change in the left lateral breast. Diffuse skin thickening and subcutaneous breast edema is most notable in the lateral quadrants as well as at the site of prior lumpectomy in the left lower outer quadrant. No suspicious focal findings in the left upper inner quadrant where the patient reported left breast thickening on clinical intake sheet dated 03/19/2023. Cursors were placed over benign calcification in the 12 o'clock axis. No suspicious architectural distortion or acoustical shadowing. No axillary adenopathy. IMPRESSION: Post radiation edema in the left breast. No suspicious findings.Further evaluation of a palpable abnormality should be based on clinical grounds regardless of radiographic findings or lack thereof.Annual bilateral mammographic screening is recommended unless otherwise clinically indicated. ASSESSMENT: BI-RADS Category 2: Benign
== END ==
PROVIDERS: PCP Family Medicine; Visit Provider Family Medicine
DX: R92.8 Other abnormal and inconclusive findings on diagnostic imaging of breast (principal)
CPT/HCPCS: 76641

== ENCOUNTER 2023-08-20 10:09 | Day surgery (SDC) | payer MEDICARE, SELFPAY ==
[2023-08-20 10:23] VITALS: BMI 20.9
[2023-08-20 10:32] VITALS: BP 168/72; PULSE 65; RESP 18; TEMP 36.7; O2SAT 96
--- NOTE | 2023-08-20 11:03 | EXP.ANES.CKL ---
[facility] Disclaimer: The information contained in this section may have been updated after the patient was seen, as this information can be updated by other users. Medical History Anemia Anxiety Arthritis Asthma Breast cancer Chemotherapy adverse reaction COPD (chronic obstructive pulmonary disease) COPD exacerbation Fall Fibromyalgia GERD (gastroesophageal reflux disease) Heel sore History of breast cancer History of gastroesophageal reflux (GERD) Hypertension Pseudomonas pneumonia Respiratory failure with hypercapnia Surgical History History of appendectomy History of back surgery History of breast biopsy History of colonoscopy History of esophagogastroduodenoscopy (EGD) History of lumpectomy of left breast History of total hysterectomy Family History Other Cancer Coronary artery disease Stroke Social History Smoking Status: Former smoker pack-years: 36 second hand exposure: Yes alcohol intake: never substance use type: denies use current occupational status: retired Travel in the last 8 weeks: None household members: spouse housing: house current occupational exposures/hazards: No caffeine: Yes [facility] Anesthesia Checklist Patient Identification Patient Identification: Arm Band Structural Data Admitted From: Home Planned Operative Procedure/s: Port a cath removal Consent for Planned Operative Procedure(s) Verified: Yes Verified Documents: Surgical Consent and History and Physical NPO Status Verified Time NPO: 00:00 Additional verifications Anesthesia Reactions: No Hx Blood Transfusions: No Blood Transfusion Reaction: No Airway Assessment Mallampati Score:: Class II C-Spine Mobility Assessed: Yes TMJ Mobility Assessed: Yes Dentition: Edentulous Neurological Assessment Level of Consciousness: Awake and Alert Anesthesia Plan Anesthesia Risk discussed: Yes Anesthesia Plan: Verified ASA Class: III Anesthesia Type: MAC
--- NOTE | 2023-08-20 11:51 | P.OP_ITS ---
Date of procedure: 08/20/23 Pre-op Diagnosis:: Skin breakdown over and exposure of implantable venous access port Post-op Diagnosis:: Same Procedure performed:: Removal of venous access device with reservoir port Surgeon:: Roberto Carlos Garrett MD RADIOLOGY PRACTITIONER ASSISTANT:: Messi Addison Anesthesia: MAC and local Estimated blood loss (mL): 2 Clinical Note:: Patient is a pleasant 73-year-old female with history of breast cancer who underwent right sided port placement in 2019. She apparently underwent 3 treatments of chemotherapy but then had adverse reaction and refused any additional therapy. Port has not been used. She wished to have this removed. She states that the skin overlying this is quite thin. It was placed by surgeon at the [facility]. She was seen as an outpatient surgical consultation day before yesterday and found to have skin breakdown with exposure of prosthetic port. Plan was made for removal. Operative findings:: Exposed port with inflamed surrounding soft tissues and some skin erythema with breakdown of the overlying skin. Operative note:: Patient was taken the operating room. She was positioned in supine position. Adequate intravenous sedation was achieved. The area was prepped and draped in the standard surgical fashion. There was obvious exposed venous access reservoir port. There is surrounding erythema. No purulent drainage. Significant mount of breakdown the skin overlying the port. Local anesthetic was infiltrated regionally around the port. Obvious devitalized skin was incised. Using some blunt dissection with minimal Metzenbaum dissection the reservoir port was delivered through the already partially open wound. It was able to be retracted in its entirety with removal of the venous access tubing intact. Pressure was held at the internal jugular vein for hemostasis. The residual fibrous capsule around the port was excised from surrounding subcutaneous tissues. Additional local anesthetic was infiltrated. There was good hemostasis. Given the tissue inflammation and potential for infection with erosion of the overlying superficial tissues plan was made to leave the wound open. It was packed with a dry sterile gauze and covered with clean dry sterile dressing. Condition: stable Disposition: PACU Complications:: None immediate
[2023-08-20 11:52] VITALS: BP 130/49; PULSE 57; RESP 14; TEMP 36.3; O2SAT 100
[2023-08-20 12:02] VITALS: BP 120/54; PULSE 56; RESP 16; O2SAT 100
[2023-08-20 12:12] VITALS: BP 127/60; PULSE 53; RESP 16; O2SAT 100
[2023-08-20 12:22] VITALS: BP 121/66; PULSE 57; RESP 16; O2SAT 100
[2023-08-20 12:52] VITALS: BP 130/70; PULSE 54; RESP 16; O2SAT 100
== END 2023-08-20 12:55 | disposition home or self-care (01) ==
PROVIDERS: PCP Family Medicine; Visit Provider Surgery
PROC: (CPT 36590; principal; 2023-08-20 11:30)
DX: T85.898A Other specified complication of other internal prosthetic devices, implants and grafts, initial encounter (principal); Z95.9 Presence of cardiac and vascular implant and graft, unspecified; Z85.3 Personal history of malignant neoplasm of breast
CPT/HCPCS: 36590; 96374

== ENCOUNTER 2024-01-15 15:03 | Outpatient (CLI) | payer MEDICARE, SELFPAY ==
--- NOTE | 2024-01-15 15:09 | CT_ITS ---
FINAL REPORT CLINICAL HISTORY: 6MM LUNG NODULE COMPARISON: 11/20/2020 FINDINGS: CTDI vol (mGy): 2.90 DLP: 98.[address] images of the chest were obtained using the low-dose protocol for screening. There is no evidence of mediastinal or hilar mass or adenopathy. No axillary mass or adenopathy is identified. On the lung window images, there is scarring at the lung bases with moderate changes of centrilobular emphysema. There is a 6 mm left upper lobe nodule seen on image 9 of series 3, unchanged from exam performed in 2019. Surgical clips are noted in the right upper quadrant. IMPRESSION: Stable left upper lobe nodule, considered benign. Lung RADS category 1 . Recommend 12 month followup low-dose CT for further evaluation. Reviewed, Interpreted and Dictated by Rizwan Buckley MD Transcribed by Betty Henriquez Authenticated and [facility]
--- NOTE | 2024-01-15 15:11 | XR_ITS ---
FINAL REPORT CLINICAL HISTORY: RT HIP PAIN FINDINGS: RIGHT HIP Two views of the right hip demonstrate no acute fracture or dislocation. The joint spaces appear normal. The visualized bony structures are well aligned. No soft tissue abnormality is seen. Surgical clips are noted in the right lower quadrant. IMPRESSION: No acute bony abnormality. Reviewed, Interpreted and Dictated by Rizwan Buckley MD Transcribed by Libia Islas Authenticated and . [facility]
== END 2024-01-15 23:59 ==
LOC: RAD 15:04
PROVIDERS: PCP Family Medicine; Visit Provider Family Medicine
DX: Z87.891 Personal history of nicotine dependence (principal); Z12.2 Encounter for screening for malignant neoplasm of respiratory organs; R91.1 Solitary pulmonary nodule; M25.551 Pain in right hip
CPT/HCPCS: 71271; 73502

== ENCOUNTER 2024-03-28 09:44 | Outpatient (CLI) | payer MEDICARE, SELFPAY ==
--- NOTE | 2024-03-28 | XR_ITS ---
FINAL REPORT TECHNIQUE: Bone mineral density was calculated of the lumbar spine and hips. CLINICAL HISTORY: OSTEOPENIA COMPARISON: None FINDINGS: Using L1-4, the bone mineral density of the spine is 0.878 g/cm2, corresponding to T-score of -1.5. Using the left hip, the bone mineral density of the femoral neck is 0.691 g/cm2, corresponding to a T-score of -2.1. Using the right hip the bone mineral density of the femoral neck is 0.655 g/cm?, corresponding to a T-score of -1.8. NOTE: T-score: Standard deviation compared with peak bone mass of young adult mean. *Following the recommendations of the International Society of Bone densitometry, classification of hip BMD is based on the lower of two T-scores; total hip or femoral neck. IMPRESSION: Diminished bone mineral density of the lumbar spine and bilateral hips consistent with low bone density. Reviewed, Interpreted and Dictated by Roberto Carlos Conlye III, MD Transcribed by Anastasia Aiken Authenticated and [facility]
--- NOTE | 2024-03-28 09:48 | MM_ITS ---
PROCEDURE INFORMATION: Exam: MG Bilateral Diagnostic Breast Tomosynthesis Exam date and time: 03/28/2024 9:52 AM Age: 73 years old Clinical indication: HX breastcancer . Due for annual bilateral screening mammography TECHNIQUE: Imaging protocol: Bilateral Diagnostic tomosynthesis and 2D mammography including computer-aided detection (CAD) when performed. Unilateral or bilateral exam. COMPARISON: 1. MG MM DIG MAMM BI DX W/CAD 03/19/2023 2:17 PM 2. MG MM clip placement LT 05/11/2019 11:54 AM 3. MG DIG MAMM-SCREEN ANIBAL 04/11/2019 2:32 PM 4. MG SCBI MM Dig screening mamm BI w/CAD 03/14/2019 10:41 AM FINDINGS: A MAMMOGRAPHY: Breast composition: There are scattered areas of fibroglandular density. Breast mammogram findings: There are stable postoperative findings on the left. Stable benign-appearing calcifications are present. No new mass, architectural distortion, or suspicious calcifications have developed to suggest malignancy. No axillary adenopathy. IMPRESSION: No mammographic evidence of malignancy. Recommend annual screening mammography unless otherwise clinically indicated. ASSESSMENT: BI-RADS category 2: Benign
== END 2024-03-28 23:59 | disposition home or self-care (01) ==
LOC: RAD 09:44
PROVIDERS: PCP Family Medicine; Visit Provider Family Medicine
DX: R92.8 Other abnormal and inconclusive findings on diagnostic imaging of breast (principal); M85.89 Other specified disorders of bone density and structure, multiple sites; Z85.3 Personal history of malignant neoplasm of breast
CPT/HCPCS: 77062; 77066; 77080; G0279

== ENCOUNTER 2024-06-15 15:35 | Outpatient (CLI) | payer MEDICARE, SELFPAY ==
--- OUTSIDE RECORDS SUMMARY | 2024-06-15 15:41 | XMS_ITS ---
[facility] Address [address] [facility] [address] [place] [id number] Care Team Providers Care Mohel Name Role Phone Christian Land Primary Care Provider Ann Galvan Unavailable [phone] ALLERGIES Allergen (clinical drug ingredient) Drug/Non Drug Allergy documented on EMR Reaction Allergy Type Onset Date Status benzonatate Benzonatate Unknown Drug Allergy Act davida Vaccine product containing Streptococcus pneumoniae antigen (medicinal product) Pneumococcal Vaccines skin necrosis Drug Allergy Active REASON FOR VISIT hurt her hand caught in dog leash MEDICATIONS Medication SIG (Take, Route, Frequency, Duration) Notes Start Date End Date Status Trelegy Ellipta 200-62.5-25 MCG/ACT inhale 1 puff by mouth once a day as directed Inhalation Once a day Active Cyclobenzaprine HCl 5 MG 1 tablet at bedtime as needed Orally tid prn 04/04/2024 Active Nystatin 982036 UNIT/ML 5 mL Mouth/Throa t Four times a day 05/18/2024 Active Gabapentin 300 MG 2 cap(s) orally 2 times a day 04/19/2024 Active ALPRAZolam 0.5 MG 1 tab(s) orally 2 times a day as needed for 30 day(s) 04/19/2024 Active Cetirizine HCl 10 mg 1 tab(s) Orally once daily Active traMADol HCl 50 MG 1 tab(s) orally 2 times a day as needed 0
--- OUTSIDE RECORDS SUMMARY | 2024-06-15 15:41 | XMS_ITS | Patient Health Record ---
Author Organization [facility] Address [address] [facility] [address] [facility] [address] [place] [id number] Care Team Providers Care Insurance Operations Rep Name Role Phone Christian Land Primary Care Provider Lyssa Sood Unavailable [phone] Ann Galvan Unavailable [phone] ALLERGIES Allergen (clinical drug ingredient) Drug/Non Drug Allergy documented on EMR Reaction Allergy Type Onset Date Status benzonatate Benzonatate Unknown Drug Allergy Act davida Vaccine product containing Streptococcus pneumoniae antigen (medicinal product) Pneumococcal Vaccines skin necrosis Drug Allergy Active RESULTS Component Value Reference Range Notes P-Comprehensive Metabolic Pa candida (CMP) Reviewed date:12/24/2023 10:27:50 AM Interpretation: Performing Lab: Notes/Report: Test performed by [facility] [address] [place] [address] , [address], [place] [address] Jasper Roth MD, Microbiology Analyst CLIA: [id number] Sodium 142 135-145 mEq/L Potassium 4.2 3.5-5.3 mEq/L Chloride 105 97-108 mEq/L CO2 28 22-32 mEq/L Glucose 89 65-99 mg/dL BUN 16 8-23 mg/dL Creatinine 0.63 0.50-1.00 mg/dL Calcium 9.5 8.6-10.4 mg/dL eGFR by Creatinine 93 >59 mL/min/1.73m2 Protein 6.8 6.0-8.3 g/dL Albumin 4.6 3.5-5.3 g/dL Alkaline Phosphatase 55 35-121 IU/L ALT (SGPT) 18 <5-47 IU/L AST (SGOT) 26
--- OUTSIDE RECORDS SUMMARY | 2024-06-15 15:41 | XMS_ITS ---
Author Organization [facility] Address [address] [facility] [address] [facility] [address] [place] [id number] Care Team Providers Care Purler Name Role Phone Christian Land Primary Care Provider Ann Galvan [phone] REASON FOR VISIT med request MEDICATIONS Medication SIG (Take, Route, Fr equency, Duration) Notes Start Date End Date Status Nystatin 858998 UNIT/ML 5 mL Mouth/Throa t Four times a day 05/18/2024 Active Encounters Encounter Location Date Provider Diagnosis [facility] [address] [facility] [address] [facility] [address] [place] [id number] 05/18/2024 Ann Galvan PLAN OF TREATMENT Medication Medication Name Sig Start Date Stop Date Notes Nystatin 354894 UNIT/ML 5 mL Mouth/Throat Four times a day 05/18/2024 Next Appt Details Provider Name:Christian Noguera, 07/07/2024 10:00:00 AM, [address] [facility], [address], [place], [phone],
--- OUTSIDE RECORDS SUMMARY | 2024-06-15 15:41 | XMS_ITS ---
Author Organization [facility] Address [address] [facility] [address] [facility] [address] [place] [phone] Care Team Providers Care Assistant Nurse Manager Name Role Phone Christian Land Primary Care Provider Ann Galvan [phone] REASON FOR VISIT Message MEDICATIONS Medication SIG (Take, Route, Fr equency, Duration) Notes Start Date End Date Status Fluconazole 100 MG 1 tablet Orally once daily for 5 day(s) 05/19/2024 Active Encounters Encounter Location Date Provider Diagnosis [facility] [address] [facility] [address] [facility] [address] [place] [id number] 05/19/2024 Ann Galvan PLAN OF TREATMENT Medication Medication Name Sig Start Date Stop Date Notes Fluconazole 100 MG 1 tablet Orally once daily for 5 day(s) 05/19/2024 Next Appt Details Provider Name:Christian Noguera, 07/07/2024 10:00:00 AM, [address] [facility] [address] [facility], [address], [place], [phone],
--- NOTE | 2024-06-15 15:43 | XR_ITS ---
FINAL REPORT CLINICAL HISTORY: INJURY OF RIGHT HAND, pain third, 4th, and fifth fingers and hand, dog pulled pt and caught rt hand in leash, c/o bruising and pain COMPARISON: None FINDINGS: Three views show no evidence of acute displaced fracture or dislocation of the visualized bony architecture. Severe osteopenia is present. Moderate diffuse degenerative changes are present. There is a spiral fracture of the fourth proximal phalanx with mild displacement. No acute fracture is identified. IMPRESSION: Severe osteopenia and degenerative change. Spiral fracture of the fourth proximal phalanx with mild displacement, no acute fracture identified. Reviewed, Interpreted and Dictated by Myke Bautista MD Transcribed by Anastasia Aiken Authenticated and [facility]
== END 2024-06-15 23:59 | disposition home or self-care (01) ==
LOC: RAD 15:39
PROVIDERS: PCP Family Medicine; Visit Provider Physician Assistant
DX: M79.641 Pain in right hand (principal); S69.91XA Unspecified injury of right wrist, hand and finger(s), initial encounter
CPT/HCPCS: 73130

== ENCOUNTER 2024-07-14 12:30 | Outpatient (CLI) | payer MEDICARE, MEDICAID, SELFPAY ==
--- NOTE | 2024-07-14 12:34 | XR_ITS ---
FINAL REPORT CLINICAL HISTORY: rt hand pain COMPARISON: 06/15/2024 FINDINGS: Right hand Three views were obtained. There are [id number] hypertrophic changes of the DIP and PIP joints. There is an oblique nondisplaced fracture of the 4th proximal phalanx which is similar to previous. 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 IMPRESSION: Nondisplaced fracture of the 4th proximal phalanx, similar to previous. Reviewed, Interpreted and Dictated by Rizwan Buckley MD Transcribed by Uzma Ham Authenticated and . [facility]
== END 2024-07-14 23:59 | disposition home or self-care (01) ==
LOC: RAD 12:32
PROVIDERS: PCP Family Medicine; Visit Provider Orthopaedic Surgery
DX: M79.641 Pain in right hand (principal)
CPT/HCPCS: 73130

== ENCOUNTER 2024-08-01 13:00 | Outpatient (RCR) | payer MEDICARE, MEDICAID, SELFPAY ==
--- NOTE | 2024-07-12 14:55 | HMH.SLVOIC ---
Speech & Language Evaluation Speech/Language Voice Evaluation Start: 07/12/24 14:13 Freq: once Status: Complete Protocol: Document 07/12/24 14:13 DAVIDRAVI (Rec: 07/12/24 14:54 ECLARK Laptop) Co-signed By [facility] N[facility] Voice/Dysarthria Assessment/Goals/Plan Assessment/Problems Date of Evaluation: 07/12/24 Assessment/Problems dysphagia and weak voice per MD order Does Patient Qualify for Service Yes Qualify/Failure Comment Based on clinical observations made throughout evaluation and pt interview, Linda would benefit for skilled speech therapy services x1 week for 12 weeks in order to improve vocal quality. Recommendations Pt will be seen # times/week 1 for # weeks 12 Additional Consults Recommended Other Comment GI consult to assess esophageal function and ENT consult to assess vocal folds Plan Anticipate reaching STG in # weeks 8 Anticipate reaching LTG in # weeks 12 Pt/Guardian verbally ack understanding Yes of dx/prognosis/goals G -code Required No Short Term Goals Educated on & eliminate vocal abuse Yes behaviors Use easy initiation of phonation for Yes prod of best voice 8/10 trials Inc loudness level wo inc laryngeal Yes tension 8/10 trials Foundation Maker Goals Improve overall quality to increase/ Yes: 70% improve communication with family/ friends. Education Instructions provided SALES ENGAGEMENT EXECUTIVE discussed clinical observations made throughout the evaluation and POC with pt and nurse. SALES ENGAGEMENT EXECUTIVE also discussed GI and ENT referral with pt and nurse who expressed understanding. Pt/Caregiver able to recall information Able to recall/restate Reinforcement needed No Speech & Language HPI History Present Illness Description of Patient Problem Mrs. Chappell is a pleasant 74 year old female presenting to [facility] for a skilled speech-language evaluation to assess swallowing function and voice. Mrs. Chappell was accompanied by her home health nurse who helped to provide her history. PMHx includes COPD, breast cancer, anxiety, and post- nasal drip. Surgical hx includes a hysterectomy and cervical surgery. Patient reported noticing a change in her vocal quality around January 2024. She states that sometimes she has trouble getting her words out, and that her voice is hoarse. She has also reported having trouble swallowing certain foods, such as meats. Pt/Caregiver Concerns Vocal quality and swallowing function Rehab Services Assessed Speech therapy Is this evaluation r/t stroke? No Language Primary Language Japanese Therapy History Seen by other SL therapists No Other Specialists? No SL Voice & Resonance Eval Communication/Cognition Orientation Name,Place,Day,Date,Year Ablility to follow commands 2-step commands Intelligibility Good Barriers to Communication Vocal quality Oral-Motor Structure/Function Structure/Function Yes: Buccal Labial Lingual Mandibular Velar Facial Symmetry Symmetrical Laryngeal Function WEAK: Voluntary Cough Throat Clearing Dentition Dentures-poor fitting Resp Status/History Resp status/hx a concern? Yes Oxygen Delivery Method Nasal Cannula Mouth breather No Risk fatigue due to compromised resp? Yes Voice Voice Pitch Mildly Low,Pitch Breaks Voice Loudness Severely Soft/Quiet Voice Phonatory-based Quality Breathy,Hoarse,Quivering, Tremor,Weak,Loss of Voice Voice Other Observations Progressively Weak Voice, Inadequate Breath Support, Throat Clearing Sustain AH #secs (15-20=NML) 14 Sustain S #secs (20-25=NML) 10 Sustain Z #secs (20-25=NML) 9 S/Z Ratio % 1.1 S/Z Ratio = Vocal Fold Pathology? No Resonance Breathing Mechanism Diaphragmatic/Abdominal Voice Nasal Resonance Normal Voice Oral Resonance Normal Speech Intelligibility Phoneme WNL Word WNL Sentence WNL Conversation Mild Other Notes Comment A CSE was also completed on this date. Pt was sitting upright, using a nasal cannula . Pt has poor fitting dentures on the lower mandible, but good upper dentition. Consistencies given include thin liquid (water) via cup and straw, pudding, puree ( applesauce), mechanical soft ( Nutrigrain bar), and regular ( estefanía cracker). Each bolus was given x2 to assess for consistency and fatigue. Pt did not exhibit any overt s/sx of aspiration on any trial presented. Pt exhibited x4 throat clears on thin liquids. Pt mastication was slightly reduced on regular foods '2 dentition. No oral residue observed on any consistency trialed. SALES ENGAGEMENT EXECUTIVE recommends thin liquids/regular foods diet, with compensatory strategies including sitting upright when eating, sitting upright 30-60 mins after eating, alternating bites and sips, and using extra sauces and gravy's. SALES ENGAGEMENT EXECUTIVE recommends GI consult for globus sensation. PHYSICIAN CERTIFICATION: I certify the specified therapy services for Linda Amy Chappell are required, authorized, and reviewed every 30 days.
== END 2024-08-01 23:59 | disposition home or self-care (01) ==
LOC: ST 13:00
PROVIDERS: Visit Provider Family Medicine
DX: R13.10 Dysphagia, unspecified (principal); R47.1 Dysarthria and anarthria
CPT/HCPCS: 92507; 92524

== ENCOUNTER 2024-08-22 11:15 | Day surgery (SDC) | payer MEDICARE, MEDICAID, SELFPAY ==
[2024-08-17 10:36] VITALS: BMI 21.9
[2024-08-22 11:28] VITALS: BP 133/94; PULSE 55; RESP 18; TEMP 36.6; O2SAT 97
[2024-08-22] MEDS: LACTATED RINGERS 1000ML 1,000 ML 25 ML IV (11:36)
--- NOTE | 2024-08-22 11:56 | EXP.ANES.CKL ---
[facility] Disclaimer: The information contained in this section may have been updated after the patient was seen, as this information can be updated by other users. Medical History History of hyperlipidemia Respiratory failure with hypercapnia COPD exacerbation Fibromyalgia Arthritis History of gastroesophageal reflux (GERD) Hypertension Asthma History of breast cancer Fall Heel sore Pseudomonas pneumonia GERD (gastroesophageal reflux disease) Chemotherapy adverse reaction Breast cancer Anemia Anxiety COPD (chronic obstructive pulmonary disease) Surgical History History of lumpectomy of left breast History of breast biopsy History of esophagogastroduodenoscopy (EGD) History of colonoscopy History of back surgery History of total hysterectomy History of appendectomy Family History Other Cancer Coronary artery disease Family history of colon cancer Stroke Social History Smoking Status: Former smoker tobacco type: cigarettes packs per day: 1 second hand exposure: Yes alcohol intake: never substance use type: denies use current occupational status: retired Travel in the last 8 weeks: None household members: spouse housing: house current occupational exposures/hazards: No caffeine: Yes [facility] Anesthesia Checklist Patient Identification Patient Identification: Verbal (Name & ) Structural Data Admitted From: Home Planned Operative Procedure/s: egd NPO Status Verified Time NPO: 00:00 Additional verifications Anesthesia Reactions: No Hx Blood Transfusions: No Blood Transfusion Reaction: No Airway Assessment Mallampati Score:: Class II C-Spine Mobility Assessed: Yes TMJ Mobility Assessed: Yes Dentition: Dentures-good fit Neurological Assessment Level of Consciousness: Awake, Alert and Appropriate Anesthesia Plan Anesthesia Risk discussed: Yes Anesthesia Plan: Verified ASA Class: II Anesthesia Type: MAC
--- NOTE | 2024-08-22 13:28 | P.HP_ITS ---
History of Present Illness *Admission Date: 08/22/24 *Reason for visit:: Screening *History of present illness: Mrs. Chappell is a 74-year-old female who is here for dysphagia. The examination is deemed medically necessary for EGD. The patient has been seen, interviewed and examined prior to the procedure by both myself and the anesthesia provider. [facility] Disclaimer: The information contained in this section may have been updated after the patient was seen, as this information can be updated by other users. Medical History (Updated 08/22/24 @ 13:33 by Alberto Anaya II, MD) History of hyperlipidemia Respiratory failure with hypercapnia COPD exacerbation Fibromyalgia Arthritis History of gastroesophageal reflux (GERD) Hypertension Asthma History of breast cancer Fall Heel sore Pseudomonas pneumonia GERD (gastroesophageal reflux disease) Chemotherapy adverse reaction Breast cancer Anemia Anxiety COPD (chronic obstructive pulmonary disease) Surgical History History of lumpectomy of left breast History of breast biopsy History of esophagogastroduodenoscopy (EGD) History of colonoscopy History of back surgery History of total hysterectomy History of appendectomy Family History Other Cancer Coronary artery disease Family history of colon cancer Stroke Social History Smoking Status: Former smoker tobacco type: cigarettes packs per day: 1 second hand exposure: Yes alcohol intake: never substance use type: denies use current occupational status: retired Travel in the last 8 weeks: None household members: spouse housing: house current occupational exposures/hazards: No caffeine: Yes Review of Systems Review of Systems Review of systems (narrative): Negative *Cardiovascular Comments: Negative *Gastrointestinal Comments: Negative *Genitourinary Comments: Negative *Musculoskeletal Comments: Negative *Neurologic Comments: Negative Meds Home Medications and Allergies Home Medications ?Medication ?Instructions ?Recorded ?Confirmed ?Type esomeprazole magnesium 40 mg 40 mg PO DAILY GERD ##30 08/16/19 08/22/24 Rx granules delayed release for susp metoprolol succinate 50 mg 50 mg PO BID High blood pressure 08/16/19 08/22/24 Rx tablet,extended release 24 hr #60 tabs gabapentin 300 mg capsule 600 mg PO BID Pain 09/25/20 08/22/24 History sertraline 100 mg tablet 150 mg PO DAILY Depression 06/17/21 08/22/24 History fluticasone fur. 200 mcg-umeclid 1 inh inhalation DAILY COPD 09/04/22 08/22/24 History 62.5 mcg-vilant 25 mcg inhalat.powder (Trelegy Ellipta) alprazolam 0.5 mg tablet 0.5 mg PO BIDP PRN Anxiety #60 tabs 09/07/22 08/22/24 Rx albuterol sulfate 90 mcg/actuation 1 inh inhalation Q6HP PRN 11/20/22 08/22/24 History aerosol inhaler shortness of breath or wheezing cetirizine 10 mg tablet 10 mg PO DAILY Allergy symptoms 11/20/22 08/22/24 History tramadol 50 mg tablet 50 mg PO BIDP PRN Pain 11/20/22 08/22/24 History New Prescriptions to Start Prescriptions: Allergies Allergy/AdvReac Type Severity Reaction Status Date / Time benzonatate Allergy Mild SWELLING Verified 08/22/24 11:26 pneumococcal vaccine Allergy Mild ITCHING,TISSUE Verified 08/22/24 11:26 NECROSIS pork derived (porcine) Allergy Unknown Nausea Verified 08/22/24 11:26 Pork/Porcine Containing Allergy Unknown Nausea Verified 08/22/24 11:26 Products Exam Data for Last 24 hours Vital signs and Labs for Last 24 Hours: Temp Pulse Resp BP Pulse Ox O2 Del Method O2 Flow Rate 97.9 F 55 L 18 133/94 H 97 Nasal Cannula 2 08/22/24 11:28 08/22/24 11:28 08/22/24 11:28 08/22/24 11:28 08/22/24 11:28 08/22/24 11:08/22/24 11:28 *Routine HEENT Exam Head: Present normocephalic Eye: Present EOMI and PERRL ENT: Present mucous membranes moist *Routine Neck Exam Neck: Present supple *Routine Respiratory Exam Respiratory: Present CTA bilaterally *Routine Cardiovascular Exam Cardiovascular: Present RRR *Routine Abdominal Exam Abdominal: Present soft and normoactive bowel sounds; Absent tenderness *Routine Rectal Exam Rectal:: deferred *Routine Genitalia Exam Genitalia:: deferred *Routine Extremities Exam Extremities: Absent cyanosis, clubbing or edema *Routine Skin Exam Skin: Present warm; Absent rash *Routine Neurological Exam Neurological: Present alert and oriented X3 Assessment and Plan *Assessment and plan (1) Dysphagia: Start date: 08/22/24 Start time: 13:33 Status: Acute Category: Medical Code(s): R13.10 - Dysphagia, unspecified (2) GERD (gastroesophageal reflux disease): Status: Chronic Category: Medical Code(s): K21.9 - Gastro-esophageal reflux disease without esophagitis (3) Heartburn: Status: Acute Category: Medical Code(s): R12 - Heartburn Plan A/P: 1. Dysphagia is the preprocedural diagnosis. The patient will be anesthetized/sedated using MAC sedation. The patient has been seen and examined. Cardiac and lung assessment prior to the examination is stable. Proceed with planned EGD
[2024-08-22 13:31] VITALS: O2SAT 97
--- NOTE | 2024-08-22 13:35 | P.PCN_ITS ---
[facility] Procedure Note Date: 08/22/24 Time: 13:35 Procedure Note:: Upper Endoscopy Procedure Report: Esophagogastroduodenoscopy with cold biopsies and TTS balloon dilation Endoscopost: Alberto Anaya II, MD Referring Physician: Andrea Land MD Date of Procedure: August 22, 2024 Equipment: Olympus GIF 190 standard upper endoscope Sedation: MAC sedation Indications: Mrs. Chappell is a 74-year-old female who is here for diagnostic/therapeutic upper endoscopy secondary to dysphagia. The patient reports symptoms that have been somewhat longstanding to both solids and liquids (solids greater than liquids). The patient does state that she had a barium swallow but the report is not available. The patient did have a colonoscopy with in in February 2018 and had a couple of benign polyps (tubular adenomas) removed. The patient does get some heartburn, reflux and bloating. Procedure: Prior to the procedure, a history and physical exam was performed, and patient's medications and allergies were reviewed. The risks, benefits and alternatives of the sedation and procedure were discussed with the patient. All questions were answered and informed consent was obtained. The patient was brought to the procedure room. Patient identification and proposed procedure were verified by the physician and the nurse. The patient was placed in a left lateral decubitus position and the scope was passed under direct vision. Throughout the procedure, the patient's blood pressure, pulse, and oxygen saturations were monitored continuously. The upper GI endoscopy was accomplished without difficulty. The patient tolerated the procedure well. Findings: The scope was passed directly into the upper esophagus and advanced to the third portion of the duodenum. The post bulbar duodenum and duodenal bulb were normal with normal mucosa and conniventes. The scope was withdrawn through a normal duodenal bulb and pylorus into the stomach. There was some bile reflux with mild linear reactive gastropathy of the antrum. There was mild gastric atrophy of the body and fundus. The remainder of the gastric mucosa was normal. 2 biopsies were taken from the antrum and lesser curvature and fundus. Upon retroflexion there was a small 2 cm hiatal hernia. The scope was then withdrawn into the esophagus. There was no evidence of reflux esophagitis, Valdez's or Schatzki's ring. There were some tertiary contractions and moderate esophageal dysmotility. There was also whitish-yellow plaque in the proximal and distal esophagus consistent with moderate candidal esophagitis. Biopsies were taken from the proximal and distal esophagus for pathology to rule out candidal esophagitis. The entire esophagus was dilated to 20 mm/60 Georgian with a TTS hydrostatic balloon. The remainder of the esophageal mucosa was normal. Impression: 1. Moderate candidal esophagitis 2. Nonerosive GERD with small 2 cm hiatal hernia 3. Mild antral reactive gastropathy and mild gastric atrophy Plan: I will follow-up the biopsies and began treatment for candidal esophagitis with fluconazole. Emergence of drug resistance for esophageal candidiasis has particularly occurred with fluconazole treatment. Refractory esophageal candidiasis is often due to non-Keke albicans species of Keke (i.e. Keke glabrata or Keke krusei). If the patient has any recurrences, I would then consider itraconazole. Persons with more than 1 episode of esophageal candidiasis should in many circumstances be treated with long-term therapy to prevent the recurrence of the candidiasis. Long-term injury and inflammation from chronic esophageal candidiasis is a risk factor for esophageal cancer (squamous cell carcinoma of the esophagus). This is another primary reason that recurrent esophageal candidiasis should be maintained with a chronic suppressive agent/treatment.
[2024-08-22 13:47] VITALS: BP 148/67; PULSE 59; RESP 16; TEMP 36.8; O2SAT 92
[2024-08-22 13:57] VITALS: BP 146/74; PULSE 61; RESP 16; O2SAT 96
[2024-08-22 14:07] VITALS: BP 187/63; PULSE 60; RESP 16; TEMP 36.8; O2SAT 98
[2024-08-22 14:17] VITALS: BP 167/66; PULSE 61; RESP 16; O2SAT 99
== END 2024-08-22 14:22 | disposition home or self-care (01) ==
PROVIDERS: PCP Family Medicine; Visit Provider Internal Medicine Gastroenterology
PROC: 0DJ08ZZ Inspection of Upper Intestinal Tract, Via Natural or Artificial Opening Endoscopic (ICD-10-PCS; CPT 43235; principal; 2024-08-22 12:30)
DX: R13.10 Dysphagia, unspecified (principal); R12 Heartburn; B37.81 Candidal esophagitis; Z79.899 Other long term (current) drug therapy; K21.00 Gastro-esophageal reflux disease with esophagitis, without bleeding; K44.9 Diaphragmatic hernia without obstruction or gangrene; K29.40 Chronic atrophic gastritis without bleeding
CPT/HCPCS: 43239; 43249; 88305; 99221; C1726; J7120